=== PATIENT | male | born 1960 | race Caucasian/White ===

== ENCOUNTER 2021-06-27 07:31 | Emergency (ER) | payer MEDICAID ==
[~2021-06-27] VITALS: Ht 175.3 cm; Wt 83.0 kg
[2021-06-27 07:37] VITALS: BP 137/66
[2021-06-28] MEDS ORDERED: CEPH500C2 MT (06:38)
== END 2021-06-27 14:12 | disposition home or self-care (01) ==
LOC: EDBD 07:39 → ER 07:39
DX: K40.90 Unilateral inguinal hernia, without obstruction or gangrene, not specified as recurrent (principal); Z98.890 Other specified postprocedural states
CPT/HCPCS: 74176; 76870; 93976; 99284

== ENCOUNTER 2021-06-28 05:54 | Emergency (ER) | payer MEDICAID ==
[~2021-06-28] VITALS: Ht 167.6 cm; Wt 61.0 kg
[2021-06-28] MEDS ORDERED: IBUPROFEN 600MG TABLET PO ONE (06:30)
[2021-06-28] MEDS ORDERED: CEPH500C2 MT (06:38)
[2021-06-28 09:54] VITALS: BP 137/80
== END 2021-06-28 09:55 | disposition home or self-care (01) ==
LOC: ER 07:15
DX: R53.1 Weakness (principal); F15.10 Other stimulant abuse, uncomplicated; K40.90 Unilateral inguinal hernia, without obstruction or gangrene, not specified as recurrent
CPT/HCPCS: 82962; 99283

== ENCOUNTER 2021-06-28 13:47 | Inpatient (IN) | payer MEDICAID ==
[~2021-06-28] VITALS: Ht 160 cm; Wt 55.8 kg
[~2021-06-28 13:47] MED LIST: CEPH500C2 MT; ETOMIDATE 2MG/ML 10ML VIAL IV ONE
[2021-06-28] MEDS ORDERED: NALOXONE HCL 1 MG/ML 2ML VIAL IV ONE ×2 (14:00→14:45)
[2021-06-28] MEDS ORDERED: NALOXONE HCL 1 MG/ML 2ML VIAL ONE (14:06)
[2021-06-28 14:45] LABS: BASOPHILS % 0.4 % (0.0-2.0); EOSINOPHILS % 0.8 % (0.0-5.0); HEMOGLOBIN. 12.4 g/dL (14.0-18.0); LYMPHOCYTES % 9.4 % (20.0-50.0); MEAN CORPUSCULAR HEMOGLOBIN 24.9 pg (28.0-32.0); MEAN CORPUSCULAR VOLUME 78.4 fL (80.0-94.0); MEAN PLATELET VOLUME 7.4 fl (7.4-10.4); MONOCYTES % 3.3 % (2.0-8.0); NEUTROPHILS % 86.1 % (40.0-76.0); PLATELET 554 x1000/uL (130-400); RED BLOOD CELL COUNT 4.98 mill/uL (4.7-6.1); RED CELL DISTRIBUTION WIDTH 16.5 % (11.6-14.6)
[2021-06-28 14:52] LABS: CHLORIDE 99 mEq/L (98-107)
[2021-06-28 14:56] LABS: ETHANOL BLOOD < 10 mg/dL
[2021-06-28] MEDS ORDERED: PROPOFOL 10MG/ML 100ML 100 ML IV ONE (15:00)
[2021-06-28] MEDS ORDERED: ROCURONIUM BROMIDE 10MG/ML VIAL 5ML IV ONE (15:00)
[2021-06-28] MEDS ORDERED: ETOMIDATE 2MG/ML 10ML VIAL IV ONE (15:00)
[2021-06-28] MEDS ORDERED: NALOXONE HCL 1 MG/ML 2ML VIAL IV NR (15:00)
[2021-06-28 15:50] LABS: CLARITY URINE CLEAR (CLEAR); COLOR URINE DARK YELLOW (YELLOW); KETONES URINE TRACE (NEGATIVE); LEUKOCYTE ESTERASE URINE NEGATIVE (NEGATIVE); NITRITE URINE NEGATIVE (NEGATIVE); OCCULT BLOOD URINE 1+ (NEGATIVE); PROTEIN URINE 2+ (NEGATIVE); SPECIFIC GRAVITY URINE 1.018 (1.005-1.030)
[2021-06-28 16:03] LABS: *AMPHETAMINES SCREEN URINE NEGATIVE (NEGATIVE); *BARBITURATES SCREEN URINE NEGATIVE (NEGATIVE); *BENZODIAZEPINES SCREEN URINE NEGATIVE (NEGATIVE); *COCAINE SCREEN URINE NEGATIVE (NEGATIVE); METHADONE URINE SCREEN NEGATIVE (NEGATIVE); OPIATES URINE SCREEN PRESUMTIVE POSITIVE (NEGATIVE)
[2021-06-28 16:04] LABS: CANNABINOID URINE SCREEN NEGATIVE (NEGATIVE); PHENCYCLIDINE URINE SCREEN NEGATIVE (NEGATIVE)
[2021-06-28] MEDS: FLUORESCEIN SODIUM 1MG/STRIP RIGHTEYE ONE ×2 (16:14→17:03)
[2021-06-28] MEDS: TETRACAINE 0.5% OPHTH DROPS 4ML RIGHTEYE ONE ×2 (16:14→17:03)
[2021-06-28 17:02] LABS: BG BASE EXCESS -2.2 mmol/L (-2.0-2.0); BG CARBOXYHEMOGLOBIN 0.4 % (0.5-1.5); BG DEOXYHEMOGLOBIN 4.3 % (0.0-5.0); BG FRACTION INSPIRED OXYGEN 100; BG HCO3 ACT 24.8 mmol/L (22.0-26.0); BG METHEMOGLOBIN 0.2 % (0.0-1.5); BG OXYGEN SATURATION 95.7 % (92.0-98.5); BG OXYHEMOGLOBIN 95.1 % (94.0-97.0); BG PCO2 51.7 mmHg (35.0-45.0); BG PH 7.299 (7.350-7.450); BG PO2 85.3 mmHg (75.0-100.0); BG SAMPLE SITE RIGHT RADIAL; BG TOTAL HEMOGLOBIN 13.5 g/dL (12.0-18.0); BG VENT MODE VENT - AC
[2021-06-28] MEDS ORDERED: LORAZEPAM 2MG/ML CPJ IV PRN (20:00)
[2021-06-28] MEDS ORDERED: DEXTROSE 50% WATER 50ML SYRINGE IV PRN (20:00)
[2021-06-28] MEDS ORDERED: POTASSIUM CHLORIDE INJ 40 MEQ in DEXT 5% WATER 250 ML IV ONE (20:00)
[2021-06-28] MEDS: INSULIN LISPRO 100 UNITS/ML SUBCUT SCH (20:30)
[2021-06-28] MEDS: BLOOD SUGAR DIAGNOSTIC STRIP TEST SCH (20:30)
[2021-06-28] MEDS: KCL 20MEQ/100ML PREMIX 100 ML IV SCH ×2 (22:17→23:54)
[2021-06-28] MEDS: DEXT 5%/0.45% NACL 1000ML 1,000 ML IV SCH (22:57)
[2021-06-29] MEDS: PROPOFOL 10MG/ML 100ML 100 ML IV PRN ×3 (00:01→15:43)
[2021-06-29] MEDS: BLOOD SUGAR DIAGNOSTIC STRIP TEST SCH ×6 (04:00→20:34)
[2021-06-29 05:47] LABS: HEMATOCRIT. 41.1 % (42.0-52.0); HEMOGLOBIN. 13.2 g/dL (14.0-18.0); MEAN CORPUSCULAR HEMOGLOBIN 24.4 pg (28.0-32.0); MEAN CORPUSCULAR VOLUME 76.1 fL (80.0-94.0); MEAN PLATELET VOLUME 7.6 fl (7.4-10.4); PLATELET 473 x1000/uL (130-400); RED BLOOD CELL COUNT 5.41 mill/uL (4.7-6.1); RED CELL DISTRIBUTION WIDTH 16.1 % (11.6-14.6)
[2021-06-29 05:51] LABS: CHLORIDE 101 mEq/L (98-107)
[2021-06-29 05:58] LABS: PHOSPHORUS 2.6 mg/dL (2.5-4.9)
[2021-06-29] MEDS: INSULIN LISPRO 100 UNITS/ML SUBCUT SCH ×6 (08:00→20:35)
[2021-06-29 10:10] LABS: BG BASE EXCESS -1.4 mmol/L (-2.0-2.0); BG CARBOXYHEMOGLOBIN 0.5 % (0.5-1.5); BG DEOXYHEMOGLOBIN 0.5 % (0.0-5.0); BG FRACTION INSPIRED OXYGEN 100; BG HCO3 ACT 20.3 mmol/L (22.0-26.0); BG METHEMOGLOBIN 0.2 % (0.0-1.5); BG OXYGEN SATURATION 99.5 % (92.0-98.5); BG OXYHEMOGLOBIN 98.8 % (94.0-97.0); BG PCO2 26.2 mmHg (35.0-45.0); BG PH 7.506 (7.350-7.450); BG PO2 204.4 mmHg (75.0-100.0); BG SAMPLE SITE RIGHT RADIAL; BG TOTAL HEMOGLOBIN 13.4 g/dL (12.0-18.0); BG VENT MODE VENT - AC
[2021-06-29] MEDS: PANTOPRAZOLE SODIUM 40 MG/VIAL IV SCH (11:59)
[2021-06-29 13:22] LABS: PLATELET ESTIMATE INCREASED
[2021-06-29] MEDS: DEXT 5%/0.45% NACL 1000ML 1,000 ML IV SCH ×2 (13:52→22:54)
[2021-06-29] MEDS ORDERED: PROPOFOL 10MG/ML 100ML 100 ML IV PRN (16:00)
[2021-06-29] MEDS ORDERED: IPRATROPIUM/ALBUTEROL 0.5-3(2.5)MG/3ML NEB HHN PRN (16:00)
[2021-06-29] MEDS: PIPERACILLIN/TAZ 3.375G PREMIX 50 ML IV SCH ×2 (16:26→23:05)
[2021-06-29] MEDS: IPRATROPIUM/ALBUTEROL 0.5-3(2.5)MG/3ML NEB HHN SCH (21:18)
[2021-06-30] VITALS (59 sets, daily range): BP systolic 101–170; BP diastolic 68–92
[2021-06-30] MEDS: DEXT 5%/0.45% NACL 1000ML 1,000 ML IV SCH (01:00)
[2021-06-30] MEDS: BLOOD SUGAR DIAGNOSTIC STRIP TEST SCH ×6 (01:11→20:00)
[2021-06-30] MEDS: INSULIN LISPRO 100 UNITS/ML SUBCUT SCH ×6 (04:00→20:00)
[2021-06-30] MEDS: PIPERACILLIN/TAZ 3.375G PREMIX 50 ML IV SCH (05:25)
[2021-06-30] MEDS: IPRATROPIUM/ALBUTEROL 0.5-3(2.5)MG/3ML NEB HHN SCH ×3 (08:46→21:40)
[2021-06-30] MEDS: PANTOPRAZOLE SODIUM 40 MG/VIAL IV SCH (09:13)
[2021-06-30 09:17] LABS: BG BASE EXCESS 1.1 mmol/L (-2.0-2.0); BG CARBOXYHEMOGLOBIN 0.7 % (0.5-1.5); BG DEOXYHEMOGLOBIN 1.6 % (0.0-5.0); BG FRACTION INSPIRED OXYGEN 50; BG HCO3 ACT 25.2 mmol/L (22.0-26.0); BG METHEMOGLOBIN 0.2 % (0.0-1.5); BG OXYGEN SATURATION 98.4 % (92.0-98.5); BG OXYHEMOGLOBIN 97.5 % (94.0-97.0); BG PCO2 38.2 mmHg (35.0-45.0); BG PH 7.437 (7.350-7.450); BG PO2 111.6 mmHg (75.0-100.0); BG SAMPLE SITE RIGHT RADIAL; BG TOTAL HEMOGLOBIN 13.4 g/dL (12.0-18.0); BG VENT MODE VENT - AC
[2021-06-30] MEDS ORDERED: VANCOMYCIN 1250MG in DEXTROSE 5% WATER 250ML IV SCH (12:30)
[2021-06-30] MEDS ORDERED: VANCOMYCIN 1G PREMIX 200 ML IV NR (12:30)
[2021-06-30] MEDS: PIPERACILLIN/TAZOBACTAM 3.375G in DEXT 5% WATER 50ML IV SCH ×2 (13:56→22:12)
[2021-06-30] MEDS ORDERED: PIPERACILLIN/TAZ 3.375G PREMIX 50 ML IV SCH (14:00)
[2021-06-30] MEDS: DIPHENHYDRAMINE 50MG/ML VIAL IV PRN (16:29)
[2021-06-30] MEDS ORDERED: PROPOFOL 10MG/ML 100ML 100 ML IV PRN (19:15)
[2021-06-30] MEDS ORDERED: PROPOFOL 10 MG/ML 100 ML IV PRN (19:15)
[2021-07-01] VITALS (96 sets, daily range): BP systolic 111–182; BP diastolic 62–87
[2021-07-01] MEDS: IPRATROPIUM/ALBUTEROL 0.5-3(2.5)MG/3ML NEB HHN SCH ×4 (01:21→20:35)
[2021-07-01] MEDS ORDERED: VANCOMYCIN 1G PREMIX 200 ML IV SCH ×2 (02:00→12:00)
[2021-07-01] MEDS: DIPHENHYDRAMINE 50MG/ML VIAL IV PRN (04:37)
[2021-07-01] MEDS: BLOOD SUGAR DIAGNOSTIC STRIP TEST SCH ×6 (04:38→20:00)
[2021-07-01] MEDS: INSULIN LISPRO 100 UNITS/ML SUBCUT SCH ×6 (04:42→20:00)
[2021-07-01] MEDS: PIPERACILLIN/TAZOBACTAM 3.375G in DEXT 5% WATER 50ML IV SCH ×3 (06:01→21:45)
[2021-07-01] MEDS: PANTOPRAZOLE SODIUM 40 MG/VIAL IV SCH (08:15)
[2021-07-01] MEDS: AMLODIPINE 5MG TABLET PO SCH (09:16)
[2021-07-01] MEDS ORDERED: PROPOFOL 10MG/ML 100ML 100 ML IV PRN (11:30)
[2021-07-01] MEDS: DEXT 5%/0.45% NACL 1000ML 1,000 ML IV SCH (14:21)
[2021-07-01] MEDS: MUPIROCIN 2% OINT 22GM NS SCH (16:59)
[2021-07-02] VITALS (86 sets, daily range): BP systolic 114–163; BP diastolic 58–99
[2021-07-02] MEDS: IPRATROPIUM/ALBUTEROL 0.5-3(2.5)MG/3ML NEB HHN SCH ×4 (00:29→20:18)
[2021-07-02] MEDS: DEXT 5%/0.45% NACL 1000ML 1,000 ML IV SCH ×2 (04:00→17:17)
[2021-07-02] MEDS: INSULIN LISPRO 100 UNITS/ML SUBCUT SCH ×7 (04:00→23:31)
[2021-07-02] MEDS: BLOOD SUGAR DIAGNOSTIC STRIP TEST SCH ×7 (04:00→23:30)
[2021-07-02] MEDS: PIPERACILLIN/TAZOBACTAM 3.375G in DEXT 5% WATER 50ML IV SCH ×3 (06:00→21:40)
[2021-07-02 06:17] LABS: CHLORIDE 107 mEq/L (98-107)
[2021-07-02] MEDS: AMLODIPINE 5MG TABLET PO SCH (08:12)
[2021-07-02] MEDS: PANTOPRAZOLE SODIUM 40 MG/VIAL IV SCH (08:12)
[2021-07-02] MEDS: MUPIROCIN 2% OINT 22GM NS SCH (08:12)
[2021-07-02 09:25] LABS: BG BASE EXCESS 2.7 mmol/L (-2.0-2.0); BG CARBOXYHEMOGLOBIN 0.2 % (0.5-1.5); BG DEOXYHEMOGLOBIN 1.7 % (0.0-5.0); BG FRACTION INSPIRED OXYGEN 40; BG HCO3 ACT 27.3 mmol/L (22.0-26.0); BG METHEMOGLOBIN 0.1 % (0.0-1.5); BG OXYGEN SATURATION 98.3 % (92.0-98.5); BG PCO2 42.3 mmHg (35.0-45.0); BG PH 7.428 (7.350-7.450); BG PO2 117.4 mmHg (75.0-100.0); BG SAMPLE SITE RIGHT RADIAL; BG TOTAL HEMOGLOBIN 11.3 g/dL (12.0-18.0); BG TOTAL RESPIRATORY RATE 18 b/min; BG VENT MODE VENT - AC
[2021-07-02 13:13] LABS: BG BASE EXCESS -4.4 mmol/L (-2.0-2.0); BG CARBOXYHEMOGLOBIN 0.3 % (0.5-1.5); BG DEOXYHEMOGLOBIN 1.8 % (0.0-5.0); BG FRACTION INSPIRED OXYGEN 40; BG HCO3 ACT 22.6 mmol/L (22.0-26.0); BG METHEMOGLOBIN 0.3 % (0.0-1.5); BG OXYGEN SATURATION 98.2 % (92.0-98.5); BG OXYHEMOGLOBIN 97.6 % (94.0-97.0); BG PCO2 50.3 mmHg (35.0-45.0); BG PH 7.271 (7.350-7.450); BG PO2 135.8 mmHg (75.0-100.0); BG SAMPLE SITE RIGHT RADIAL; BG TOTAL HEMOGLOBIN 11.4 g/dL (12.0-18.0); BG VENT MODE CPAP/PS
[2021-07-02 15:13] LABS: BG BASE EXCESS -4.3 mmol/L (-2.0-2.0); BG CARBOXYHEMOGLOBIN 0.3 % (0.5-1.5); BG DEOXYHEMOGLOBIN 4.9 % (0.0-5.0); BG FRACTION INSPIRED OXYGEN 40; BG HCO3 ACT 24.8 mmol/L (22.0-26.0); BG METHEMOGLOBIN 0.2 % (0.0-1.5); BG OXYGEN SATURATION 95.1 % (92.0-98.5); BG OXYHEMOGLOBIN 94.6 % (94.0-97.0); BG PCO2 66.4 mmHg (35.0-45.0); BG PH 7.191 (7.350-7.450); BG SAMPLE SITE RIGHT RADIAL; BG TOTAL HEMOGLOBIN 12.2 g/dL (12.0-18.0); BG TOTAL RESPIRATORY RATE 39 b/min; BG VENT MODE VENT - CPAP
[2021-07-03] VITALS (56 sets, daily range): BP systolic 117–185; BP diastolic 68–91
[2021-07-03] MEDS: IPRATROPIUM/ALBUTEROL 0.5-3(2.5)MG/3ML NEB HHN SCH ×5 (02:55→20:24)
[2021-07-03] MEDS: BLOOD SUGAR DIAGNOSTIC STRIP TEST SCH ×6 (03:51→23:48)
[2021-07-03] MEDS: INSULIN LISPRO 100 UNITS/ML SUBCUT SCH ×5 (03:52→20:56)
[2021-07-03] MEDS: PIPERACILLIN/TAZOBACTAM 3.375G in DEXT 5% WATER 50ML IV SCH ×3 (05:53→21:00)
[2021-07-03] MEDS: DEXT 5%/0.45% NACL 1000ML 1,000 ML IV SCH ×2 (05:55→20:55)
[2021-07-03] MEDS: MUPIROCIN 2% OINT 22GM NS SCH (08:35)
[2021-07-03] MEDS: AMLODIPINE 5MG TABLET PO SCH (08:35)
[2021-07-03] MEDS: PANTOPRAZOLE SODIUM 40 MG/VIAL IV SCH (08:35)
[2021-07-03 10:28] LABS: BG BASE EXCESS 2.9 mmol/L (-2.0-2.0); BG CARBOXYHEMOGLOBIN 0.2 % (0.5-1.5); BG DEOXYHEMOGLOBIN 8.2 % (0.0-5.0); BG HCO3 ACT 32.8 mmol/L (22.0-26.0); BG METHEMOGLOBIN 0.2 % (0.0-1.5); BG OXYGEN SATURATION 91.8 % (92.0-98.5); BG OXYHEMOGLOBIN 91.4 % (94.0-97.0); BG PCO2 81.5 mmHg (35.0-45.0); BG PH 7.222 (7.350-7.450); BG PO2 76.1 mmHg (75.0-100.0); BG SAMPLE SITE RIGHT RADIAL; BG VENT MODE VENT - CPAP
[2021-07-03] MEDS: METHYLPREDNISOLONE SOD SUCC 40 MG/ML VIAL IV SCH ×2 (13:25→20:54)
[2021-07-04] VITALS (48 sets, daily range): BP systolic 105–180; BP diastolic 66–101
[2021-07-04] MEDS: IPRATROPIUM/ALBUTEROL 0.5-3(2.5)MG/3ML NEB HHN SCH ×6 (00:17→21:38)
[2021-07-04] MEDS: BLOOD SUGAR DIAGNOSTIC STRIP TEST SCH ×6 (03:15→23:14)
[2021-07-04] MEDS: INSULIN LISPRO 100 UNITS/ML SUBCUT SCH ×6 (03:16→23:15)
[2021-07-04] MEDS: METHYLPREDNISOLONE SOD SUCC 40 MG/ML VIAL IV SCH ×3 (03:48→21:02)
[2021-07-04] MEDS: PIPERACILLIN/TAZOBACTAM 3.375G in DEXT 5% WATER 50ML IV SCH (05:05)
[2021-07-04 06:10] LABS: CHLORIDE 102 mEq/L (98-107)
[2021-07-04 06:20] LABS: BASOPHILS % 0.1 % (0.0-2.0); EOSINOPHILS % 0.1 % (0.0-5.0); HEMATOCRIT. 32.4 % (42.0-52.0); HEMOGLOBIN. 10.4 g/dL (14.0-18.0); MEAN CORPUSCULAR HEMOGLOBIN 24.6 pg (28.0-32.0); MEAN CORPUSCULAR VOLUME 76.7 fL (80.0-94.0); MEAN PLATELET VOLUME 7.3 fl (7.4-10.4); MONOCYTES % 3.7 % (2.0-8.0); NEUTROPHILS % 87.1 % (40.0-76.0); PLATELET 641 x1000/uL (130-400); RED BLOOD CELL COUNT 4.23 mill/uL (4.7-6.1); RED CELL DISTRIBUTION WIDTH 15.9 % (11.6-14.6)
[2021-07-04] MEDS: PANTOPRAZOLE SODIUM 40 MG/VIAL IV SCH (10:34)
[2021-07-04] MEDS: AMLODIPINE 5MG TABLET PO SCH (10:35)
[2021-07-04 10:36] LABS: BG BASE EXCESS 5.4 mmol/L (-2.0-2.0); BG CARBOXYHEMOGLOBIN 0.3 % (0.5-1.5); BG DEOXYHEMOGLOBIN 2.7 % (0.0-5.0); BG FRACTION INSPIRED OXYGEN 35; BG HCO3 ACT 30.5 mmol/L (22.0-26.0); BG METHEMOGLOBIN 0.2 % (0.0-1.5); BG OXYGEN SATURATION 97.3 % (92.0-98.5); BG OXYHEMOGLOBIN 96.8 % (94.0-97.0); BG PCO2 46.3 mmHg (35.0-45.0); BG PH 7.436 (7.350-7.450); BG SAMPLE SITE RIGHT RADIAL; BG TOTAL HEMOGLOBIN 12.1 g/dL (12.0-18.0); BG VENT MODE VENT - CPAP
[2021-07-04] MEDS: MUPIROCIN 2% OINT 22GM NS SCH (10:36)
[2021-07-04] MEDS: DEXT 5%/0.45% NACL 1000ML 1,000 ML IV SCH ×2 (10:36→22:00)
[2021-07-04] MEDS ORDERED: BLOOD SUGAR DIAGNOSTIC STRIP TEST SCH (20:00)
[2021-07-05] VITALS (52 sets, daily range): BP systolic 123–165; BP diastolic 65–93
[2021-07-05] MEDS: IPRATROPIUM/ALBUTEROL 0.5-3(2.5)MG/3ML NEB HHN SCH ×6 (01:34→20:21)
[2021-07-05] MEDS: INSULIN LISPRO 100 UNITS/ML SUBCUT SCH ×3 (05:10→17:13)
[2021-07-05] MEDS: BLOOD SUGAR DIAGNOSTIC STRIP TEST SCH ×3 (05:10→17:13)
[2021-07-05] MEDS: METHYLPREDNISOLONE SOD SUCC 40 MG/ML VIAL IV SCH ×3 (05:10→22:57)
[2021-07-05] MEDS: PANTOPRAZOLE SODIUM 40 MG/VIAL IV SCH (08:26)
[2021-07-05] MEDS: AMLODIPINE 5MG TABLET PO SCH (08:29)
[2021-07-05] MEDS ORDERED: LIDOCAINE HCL 1% 20ML VIAL (Pyxis) INJ ONE (08:30)
[2021-07-05 13:15] LABS: BG CARBOXYHEMOGLOBIN 0.5 % (0.5-1.5); BG DEOXYHEMOGLOBIN 3.1 % (0.0-5.0); BG HCO3 ACT 30.5 mmol/L (22.0-26.0); BG METHEMOGLOBIN 0.4 % (0.0-1.5); BG OXYGEN SATURATION 96.9 % (92.0-98.5); BG PCO2 59.3 mmHg (35.0-45.0); BG PH 7.329 (7.350-7.450); BG PO2 98.7 mmHg (75.0-100.0); BG SAMPLE SITE RIGHT RADIAL; BG VENT MODE VENT - CPAP
[2021-07-05] MEDS: DEXT 5%/0.45% NACL 1000ML 1,000 ML IV SCH (14:56)
[2021-07-05] MEDS: MUPIROCIN 2% OINT 22GM NS SCH (14:56)
[2021-07-06] VITALS (48 sets, daily range): BP systolic 118–184; BP diastolic 69–98
[2021-07-06] MEDS: BLOOD SUGAR DIAGNOSTIC STRIP TEST SCH ×4 (00:35→18:00)
[2021-07-06] MEDS: IPRATROPIUM/ALBUTEROL 0.5-3(2.5)MG/3ML NEB HHN SCH ×6 (00:43→20:51)
[2021-07-06] MEDS: DEXT 5%/0.45% NACL 1000ML 1,000 ML IV SCH ×2 (04:00→14:12)
[2021-07-06 05:34] LABS: HEMATOCRIT. 35.3 % (42.0-52.0); HEMOGLOBIN. 10.7 g/dL (14.0-18.0); MEAN CORPUSCULAR HEMOGLOBIN 23.3 pg (28.0-32.0); MEAN CORPUSCULAR VOLUME 76.9 fL (80.0-94.0); MEAN PLATELET VOLUME 7.2 fl (7.4-10.4); PLATELET 664 x1000/uL (130-400); RED BLOOD CELL COUNT 4.59 mill/uL (4.7-6.1)
[2021-07-06 05:38] LABS: CHLORIDE 102 mEq/L (98-107)
[2021-07-06] MEDS: METHYLPREDNISOLONE SOD SUCC 40 MG/ML VIAL IV SCH ×3 (05:57→22:33)
[2021-07-06] MEDS: INSULIN LISPRO 100 UNITS/ML SUBCUT SCH ×4 (06:00→18:00)
[2021-07-06 07:50] LABS: PLATELET ESTIMATE INCREASED
[2021-07-06] MEDS: PANTOPRAZOLE SODIUM 40 MG/VIAL IV SCH (08:46)
[2021-07-06] MEDS: AMLODIPINE 5MG TABLET PO SCH (08:46)
[2021-07-07] VITALS (46 sets, daily range): BP systolic 130–184; BP diastolic 74–100
[2021-07-07] MEDS: IPRATROPIUM/ALBUTEROL 0.5-3(2.5)MG/3ML NEB HHN SCH ×6 (00:33→20:47)
[2021-07-07] MEDS: DEXT 5%/0.45% NACL 1000ML 1,000 ML IV SCH ×2 (03:18→16:47)
[2021-07-07] MEDS: INSULIN LISPRO 100 UNITS/ML SUBCUT SCH ×4 (06:00→18:00)
[2021-07-07] MEDS: BLOOD SUGAR DIAGNOSTIC STRIP TEST SCH ×4 (06:18→18:04)
[2021-07-07] MEDS: METHYLPREDNISOLONE SOD SUCC 40 MG/ML VIAL IV SCH ×2 (06:18→16:48)
[2021-07-07] MEDS: AMLODIPINE 5MG TABLET PO SCH (08:33)
[2021-07-07] MEDS: PANTOPRAZOLE SODIUM 40 MG/VIAL IV SCH (08:33)
[2021-07-07 10:35] LABS: BG BASE EXCESS 4.8 mmol/L (-2.0-2.0); BG CARBOXYHEMOGLOBIN 0.3 % (0.5-1.5); BG DEOXYHEMOGLOBIN 3.6 % (0.0-5.0); BG FRACTION INSPIRED OXYGEN 35; BG HCO3 ACT 31.2 mmol/L (22.0-26.0); BG METHEMOGLOBIN 0.3 % (0.0-1.5); BG OXYGEN SATURATION 96.4 % (92.0-98.5); BG OXYHEMOGLOBIN 95.8 % (94.0-97.0); BG PO2 90.5 mmHg (75.0-100.0); BG SAMPLE SITE RIGHT RADIAL; BG VENT MODE VENT - CPAP
[2021-07-07] MEDS ORDERED: HYDRALAZINE 20MG/ML VIAL IV PRN (14:00)
[2021-07-07 14:35] LABS: BG CARBOXYHEMOGLOBIN 0.8 % (0.5-1.5); BG FRACTION INSPIRED OXYGEN 35; BG HCO3 ACT 27.4 mmol/L (22.0-26.0); BG OXYGEN SATURATION 85.9 % (92.0-98.5); BG OXYHEMOGLOBIN 85.2 % (94.0-97.0); BG PCO2 85.4 mmHg (35.0-45.0); BG PH 7.124 (7.350-7.450); BG PO2 69.6 mmHg (75.0-100.0); BG SAMPLE SITE LEFT RADIAL; BG TOTAL HEMOGLOBIN 13.6 g/dL (12.0-18.0); BG VENT MODE T PIECE
[2021-07-07] MEDS: LOSARTAN POTASSIUM 50 MG TABLET PO SCH (15:02)
[2021-07-08] VITALS (45 sets, daily range): BP systolic 98–142; BP diastolic 58–89
[2021-07-08] MEDS: IPRATROPIUM/ALBUTEROL 0.5-3(2.5)MG/3ML NEB HHN SCH ×6 (00:19→20:15)
[2021-07-08] MEDS: BLOOD SUGAR DIAGNOSTIC STRIP TEST SCH ×4 (06:00→17:25)
[2021-07-08] MEDS: INSULIN LISPRO 100 UNITS/ML SUBCUT SCH ×4 (06:00→17:25)
[2021-07-08] MEDS: DEXT 5%/0.45% NACL 1000ML 1,000 ML IV SCH ×2 (07:33→21:46)
[2021-07-08 09:31] LABS: INR 1.1; PROTHROMBIN TIME 11.6 sec (9.6-11.0)
[2021-07-08] MEDS: METHYLPREDNISOLONE SOD SUCC 40 MG/ML VIAL IV SCH ×2 (09:40→17:30)
[2021-07-08] MEDS: AMLODIPINE 5MG TABLET PO SCH (09:40)
[2021-07-08] MEDS: LOSARTAN POTASSIUM 50 MG TABLET PO SCH (09:40)
[2021-07-08] MEDS: PANTOPRAZOLE SODIUM 40 MG/VIAL IV SCH (09:40)
[2021-07-08 16:05] LABS: BG BASE EXCESS 2.7 mmol/L (-2.0-2.0); BG DEOXYHEMOGLOBIN 2.3 % (0.0-5.0); BG FRACTION INSPIRED OXYGEN 35; BG HCO3 ACT 27.6 mmol/L (22.0-26.0); BG METHEMOGLOBIN 0.2 % (0.0-1.5); BG OXYGEN SATURATION 97.7 % (92.0-98.5); BG OXYHEMOGLOBIN 97.5 % (94.0-97.0); BG PH 7.416 (7.350-7.450); BG SAMPLE SITE RIGHT RADIAL; BG TOTAL HEMOGLOBIN 13.2 g/dL (12.0-18.0); BG VENT MODE VENT - SIMV
[2021-07-08] MEDS: ONDANSETRON HCL 4MG/2ML INJ IV PRN (21:46)
[2021-07-08] MEDS: DIPHENHYDRAMINE 50MG/ML VIAL IV PRN (21:47)
[2021-07-09] VITALS (55 sets, daily range): BP systolic 97–153; BP diastolic 63–90
[2021-07-09] MEDS: IPRATROPIUM/ALBUTEROL 0.5-3(2.5)MG/3ML NEB HHN SCH ×6 (00:16→20:10)
[2021-07-09] MEDS: BLOOD SUGAR DIAGNOSTIC STRIP TEST SCH ×5 (06:00→23:40)
[2021-07-09] MEDS: INSULIN LISPRO 100 UNITS/ML SUBCUT SCH ×5 (06:00→23:40)
[2021-07-09 06:05] LABS: CHLORIDE 99 mEq/L (98-107)
[2021-07-09 06:07] LABS: BASOPHILS % 0.1 % (0.0-2.0); HEMATOCRIT. 40.9 % (42.0-52.0); HEMOGLOBIN. 12.8 g/dL (14.0-18.0); LYMPHOCYTES % 7.2 % (20.0-50.0); MEAN CORPUSCULAR HEMOGLOBIN 24.1 pg (28.0-32.0); MEAN CORPUSCULAR VOLUME 76.9 fL (80.0-94.0); MEAN PLATELET VOLUME 7.8 fl (7.4-10.4); MONOCYTES % 4.6 % (2.0-8.0); NEUTROPHILS % 88.1 % (40.0-76.0); PLATELET 646 x1000/uL (130-400); RED BLOOD CELL COUNT 5.31 mill/uL (4.7-6.1)
[2021-07-09] MEDS: AMLODIPINE 5MG TABLET PO SCH (08:40)
[2021-07-09] MEDS: METHYLPREDNISOLONE SOD SUCC 40 MG/ML VIAL IV SCH ×2 (08:40→18:52)
[2021-07-09] MEDS: PANTOPRAZOLE SODIUM 40 MG/VIAL IV SCH (08:40)
[2021-07-09] MEDS: LOSARTAN POTASSIUM 50 MG TABLET PO SCH (08:40)
[2021-07-09] MEDS: DEXT 5%/0.45% NACL 1000ML 1,000 ML IV SCH ×2 (08:41→21:45)
[2021-07-09 09:13] LABS: BG BASE EXCESS 5.5 mmol/L (-2.0-2.0); BG CARBOXYHEMOGLOBIN 0.1 % (0.5-1.5); BG DEOXYHEMOGLOBIN 3.9 % (0.0-5.0); BG FRACTION INSPIRED OXYGEN 35; BG HCO3 ACT 30.4 mmol/L (22.0-26.0); BG METHEMOGLOBIN 0.3 % (0.0-1.5); BG OXYGEN SATURATION 96.1 % (92.0-98.5); BG OXYHEMOGLOBIN 95.7 % (94.0-97.0); BG PCO2 45.3 mmHg (35.0-45.0); BG PH 7.445 (7.350-7.450); BG PO2 83.2 mmHg (75.0-100.0); BG SAMPLE SITE RIGHT RADIAL; BG TOTAL HEMOGLOBIN 14.1 g/dL (12.0-18.0); BG VENT MODE VENT - SIMV
[2021-07-09] MEDS ORDERED: PNEUMOCOCCAL 23-VAL P-SAC VAC 0.5 ML IM ONE (16:00)
[2021-07-09] MEDS ORDERED: INFLUENZA VACCINE 05/PF 0.5 ML SYRINGE IM ONE (16:00)
[2021-07-09] MEDS: ASCORBIC ACID 500 MG TABLET PO SCH (18:51)
[2021-07-09] MEDS: ZINC SULFATE 220 MG ( 50 ) CAPSULE PO SCH (18:51)
[2021-07-10] VITALS (12 sets, daily range): BP systolic 106–149; BP diastolic 53–79
[2021-07-10] MEDS: IPRATROPIUM/ALBUTEROL 0.5-3(2.5)MG/3ML NEB HHN SCH ×6 (00:33→20:23)
[2021-07-10] MEDS: BLOOD SUGAR DIAGNOSTIC STRIP TEST SCH ×4 (05:07→23:18)
[2021-07-10] MEDS: INSULIN LISPRO 100 UNITS/ML SUBCUT SCH ×4 (05:08→23:18)
[2021-07-10] MEDS: METHYLPREDNISOLONE SOD SUCC 40 MG/ML VIAL IV SCH (08:52)
[2021-07-10] MEDS: DEXT 5%/0.45% NACL 1000ML 1,000 ML IV SCH ×2 (08:53→23:14)
[2021-07-10] MEDS: PANTOPRAZOLE SODIUM 40 MG/VIAL IV SCH ×2 (08:53→20:29)
[2021-07-10] MEDS: ASCORBIC ACID 500 MG TABLET PO SCH (08:53)
[2021-07-10] MEDS: AMLODIPINE 5MG TABLET PO SCH (08:53)
[2021-07-10] MEDS: ZINC SULFATE 220 MG ( 50 ) CAPSULE PO SCH (08:53)
[2021-07-10] MEDS: LOSARTAN POTASSIUM 50 MG TABLET PO SCH (08:55)
[2021-07-10] MEDS ORDERED: BISACODYL 10MG SUPP PR SCH (13:15)
[2021-07-10] MEDS ORDERED: MINERAL OIL ENEMA 133ML PR SCH (17:00)
[2021-07-10] MEDS ORDERED: METOCLOPRAMIDE HCL 10MG/2ML VIAL IV NR (17:15)
[2021-07-10] MEDS ORDERED: SORBITOL 70% SOLN 30ML PO NR (17:15)
[2021-07-11] VITALS (13 sets, daily range): BP systolic 102–132; BP diastolic 53–83
[2021-07-11] MEDS: IPRATROPIUM/ALBUTEROL 0.5-3(2.5)MG/3ML NEB HHN SCH ×6 (00:45→20:03)
[2021-07-11] MEDS: BLOOD SUGAR DIAGNOSTIC STRIP TEST SCH ×3 (05:12→17:53)
[2021-07-11] MEDS: INSULIN LISPRO 100 UNITS/ML SUBCUT SCH ×3 (05:12→17:53)
[2021-07-11 08:07] LABS: HEMATOCRIT. 33.5 % (42.0-52.0); HEMOGLOBIN. 10.9 g/dL (14.0-18.0); MEAN CORPUSCULAR HEMOGLOBIN 25.1 pg (28.0-32.0); MEAN CORPUSCULAR VOLUME 77.2 fL (80.0-94.0); MEAN PLATELET VOLUME 7.6 fl (7.4-10.4); PLATELET 503 x1000/uL (130-400); RED BLOOD CELL COUNT 4.35 mill/uL (4.7-6.1); RED CELL DISTRIBUTION WIDTH 16.2 % (11.6-14.6)
[2021-07-11 08:09] LABS: INR 1.1; PROTHROMBIN TIME 11.4 sec (9.6-11.0)
[2021-07-11 08:27] LABS: CHLORIDE 100 mEq/L (98-107)
[2021-07-11] MEDS: AMLODIPINE 5MG TABLET PO SCH (08:44)
[2021-07-11] MEDS: LOSARTAN POTASSIUM 50 MG TABLET PO SCH (08:44)
[2021-07-11] MEDS: PANTOPRAZOLE SODIUM 40 MG/VIAL IV SCH ×2 (08:45→20:46)
[2021-07-11] MEDS: ASCORBIC ACID 500 MG TABLET PO SCH (09:00)
[2021-07-11] MEDS: ZINC SULFATE 220 MG ( 50 ) CAPSULE PO SCH (09:00)
[2021-07-11] MEDS ORDERED: METHYLPREDNISOLONE SOD SUCC 40 MG/ML VIAL IV SCH (09:00)
[2021-07-11 10:57] LABS: PLATELET ESTIMATE INCREASED
[2021-07-11] MEDS ORDERED: POLYETHYLENE GLYCOL 3350 (17GM) 1 DOSE PACK PO NR (11:15)
[2021-07-11] MEDS: DEXT 5%/0.45% NACL 1000ML 1,000 ML IV SCH (11:30)
[2021-07-11] MEDS ORDERED: POTASSIUM CHLORIDE 20MEQ/PACKET PO NR (17:15)
[2021-07-11] MEDS: SENNOSIDES 8.6MG TABLET NG SCH (20:52)
[2021-07-12] VITALS (13 sets, daily range): BP systolic 105–134; BP diastolic 62–76
[2021-07-12] MEDS: BLOOD SUGAR DIAGNOSTIC STRIP TEST SCH ×5 (00:22→23:15)
[2021-07-12] MEDS: IPRATROPIUM/ALBUTEROL 0.5-3(2.5)MG/3ML NEB HHN SCH ×6 (00:25→20:48)
[2021-07-12] MEDS: DEXT 5%/0.45% NACL 1000ML 1,000 ML IV SCH (03:13)
[2021-07-12] MEDS: INSULIN LISPRO 100 UNITS/ML SUBCUT SCH ×5 (05:09→23:15)
[2021-07-12] MEDS: LOSARTAN POTASSIUM 50 MG TABLET PO SCH (08:02)
[2021-07-12] MEDS: AMLODIPINE 5MG TABLET PO SCH (08:02)
[2021-07-12] MEDS: PREDNISONE 20MG TABLET PO SCH (08:02)
[2021-07-12] MEDS: ASCORBIC ACID 500 MG TABLET PO SCH (08:02)
[2021-07-12] MEDS: ZINC SULFATE 220 MG ( 50 ) CAPSULE PO SCH (08:02)
[2021-07-12] MEDS: DOCUSATE SODIUM SUGAR FREE 100MG/10ML UDC NG SCH (08:02)
[2021-07-12] MEDS: PANTOPRAZOLE SODIUM 40 MG/VIAL IV SCH ×2 (08:10→20:46)
[2021-07-12 09:01] LABS: BASOPHILS % 0.1 % (0.0-2.0); EOSINOPHILS % 0.2 % (0.0-5.0); HEMATOCRIT. 33.7 % (42.0-52.0); HEMOGLOBIN. 10.8 g/dL (14.0-18.0); LYMPHOCYTES % 11.4 % (20.0-50.0); MEAN CORPUSCULAR HEMOGLOBIN 24.9 pg (28.0-32.0); MEAN CORPUSCULAR VOLUME 77.8 fL (80.0-94.0); MEAN PLATELET VOLUME 7.3 fl (7.4-10.4); NEUTROPHILS % 83.3 % (40.0-76.0); PLATELET 496 x1000/uL (130-400); RED BLOOD CELL COUNT 4.33 mill/uL (4.7-6.1); RED CELL DISTRIBUTION WIDTH 16.2 % (11.6-14.6)
[2021-07-12 09:16] LABS: INR 1.1; PROTHROMBIN TIME 11.4 sec (9.6-11.0)
[2021-07-12 09:34] LABS: CHLORIDE 101 mEq/L (98-107)
[2021-07-12 10:15] LABS: BG BASE EXCESS 4.2 mmol/L (-2.0-2.0); BG CARBOXYHEMOGLOBIN 0.3 % (0.5-1.5); BG DEOXYHEMOGLOBIN 2.6 % (0.0-5.0); BG FRACTION INSPIRED OXYGEN 35; BG HCO3 ACT 26.5 mmol/L (22.0-26.0); BG METHEMOGLOBIN 0.1 % (0.0-1.5); BG OXYGEN SATURATION 97.4 % (92.0-98.5); BG PCO2 31.9 mmHg (35.0-45.0); BG PH 7.537 (7.350-7.450); BG PO2 95.9 mmHg (75.0-100.0); BG SAMPLE SITE RIGHT RADIAL; BG TOTAL HEMOGLOBIN 11.3 g/dL (12.0-18.0); BG TOTAL RESPIRATORY RATE 22 b/min; BG VENT MODE VENT - SIMV
[2021-07-12 11:50] LABS: HEPATITIS B SURFACE ANTIGEN NEGATIVE
[2021-07-12] MEDS: SENNOSIDES 8.6MG TABLET NG SCH (20:47)
[2021-07-13] VITALS (13 sets, daily range): BP systolic 110–150; BP diastolic 65–79
[2021-07-13] MEDS ORDERED: DEXT 5%/0.45% NACL 1000ML 1,000 ML IV SCH
[2021-07-13] MEDS: IPRATROPIUM/ALBUTEROL 0.5-3(2.5)MG/3ML NEB HHN SCH ×6 (00:26→20:46)
[2021-07-13] MEDS: BLOOD SUGAR DIAGNOSTIC STRIP TEST SCH ×4 (05:19→23:40)
[2021-07-13] MEDS: INSULIN LISPRO 100 UNITS/ML SUBCUT SCH ×4 (05:19→23:40)
[2021-07-13 06:32] LABS: HEMATOCRIT. 32.6 % (42.0-52.0); HEMOGLOBIN. 10.7 g/dL (14.0-18.0); LYMPHOCYTES % 7.3 % (20.0-50.0); MEAN CORPUSCULAR HEMOGLOBIN 25.2 pg (28.0-32.0); MEAN CORPUSCULAR VOLUME 76.6 fL (80.0-94.0); MEAN PLATELET VOLUME 7.6 fl (7.4-10.4); MONOCYTES % 4.1 % (2.0-8.0); NEUTROPHILS % 86.6 % (40.0-76.0); PLATELET 502 x1000/uL (130-400); RED BLOOD CELL COUNT 4.25 mill/uL (4.7-6.1)
[2021-07-13 06:36] LABS: PROTHROMBIN TIME 11.1 sec (9.6-11.0)
[2021-07-13 06:39] LABS: CHLORIDE 101 mEq/L (98-107)
[2021-07-13] MEDS: PANTOPRAZOLE SODIUM 40 MG/VIAL IV SCH ×2 (08:05→20:39)
[2021-07-13] MEDS: DOCUSATE SODIUM SUGAR FREE 100MG/10ML UDC NG SCH (08:05)
[2021-07-13] MEDS: AMLODIPINE 5MG TABLET PO SCH (08:06)
[2021-07-13] MEDS: ASCORBIC ACID 500 MG TABLET PO SCH (08:06)
[2021-07-13] MEDS: LOSARTAN POTASSIUM 50 MG TABLET PO SCH (08:06)
[2021-07-13] MEDS: ZINC SULFATE 220 MG ( 50 ) CAPSULE PO SCH (08:06)
[2021-07-13] MEDS: PREDNISONE 20MG TABLET PO SCH (08:06)
[2021-07-13] MEDS ORDERED: CEFAZOLIN 500 MG in DEXTROSE 5% WATER 50 ML IV ONE (08:30)
[2021-07-13] MEDS ORDERED: CEFAZOLIN 1000MG PREMIX 50 ML IV NR (08:30)
[2021-07-13] MEDS ORDERED: CEFAZOLIN SODIUM 1000MG/VIAL IM ONE (08:30)
[2021-07-13] MEDS: SENNOSIDES 8.6MG TABLET NG SCH (20:39)
[2021-07-14] VITALS (12 sets, daily range): BP systolic 94–126; BP diastolic 53–73
[2021-07-14] MEDS ORDERED: DEXT 5%/0.45% NACL 1000ML 1,000 ML IV PRN
[2021-07-14] MEDS: IPRATROPIUM/ALBUTEROL 0.5-3(2.5)MG/3ML NEB HHN SCH ×6 (00:36→20:37)
[2021-07-14] MEDS: INSULIN LISPRO 100 UNITS/ML SUBCUT SCH ×4 (05:11→23:55)
[2021-07-14] MEDS: BLOOD SUGAR DIAGNOSTIC STRIP TEST SCH ×3 (05:11→17:38)
[2021-07-14] MEDS: PANTOPRAZOLE SODIUM 40 MG/VIAL IV SCH ×2 (08:56→20:00)
[2021-07-14] MEDS: ZINC SULFATE 220 MG ( 50 ) CAPSULE PO SCH (09:00)
[2021-07-14] MEDS: AMLODIPINE 5MG TABLET PO SCH (09:00)
[2021-07-14] MEDS ORDERED: CEFAZOLIN 1000MG PREMIX 50 ML IV SCH (09:00)
[2021-07-14] MEDS: LOSARTAN POTASSIUM 50 MG TABLET PO SCH (09:00)
[2021-07-14] MEDS: PREDNISONE 20MG TABLET PO SCH (09:00)
[2021-07-14] MEDS: DOCUSATE SODIUM SUGAR FREE 100MG/10ML UDC NG SCH (09:00)
[2021-07-14] MEDS: ASCORBIC ACID 500 MG TABLET PO SCH (09:00)
[2021-07-14 12:05] LABS: HEMATOCRIT. 31.8 % (42.0-52.0); HEMOGLOBIN. 9.9 g/dL (14.0-18.0); MEAN CORPUSCULAR HEMOGLOBIN 24.3 pg (28.0-32.0); MEAN PLATELET VOLUME 7.7 fl (7.4-10.4); PLATELET 428 x1000/uL (130-400); RED BLOOD CELL COUNT 4.08 mill/uL (4.7-6.1); RED CELL DISTRIBUTION WIDTH 16.4 % (11.6-14.6)
[2021-07-14 12:16] LABS: CHLORIDE 101 mEq/L (98-107)
[2021-07-14 12:26] LABS: INR 1.1; PROTHROMBIN TIME 11.6 sec (9.6-11.0)
[2021-07-14] MEDS ORDERED: FENTANYL CITRATE/PF 50MCG/ML 2ML VIAL ONE (13:12)
[2021-07-14] MEDS ORDERED: MIDAZOLAM HCL 5 MG/5 ML VIAL ONE (13:12)
[2021-07-14] MEDS ORDERED: MIDAZOLAM HCL 5 MG/5 ML VIAL IV PRN (13:12)
[2021-07-14 17:04] LABS: PLATELET ESTIMATE INCREASED
[2021-07-14] MEDS: METOCLOPRAMIDE HCL 10MG/2ML VIAL IV SCH ×2 (17:42→23:45)
[2021-07-14] MEDS: SENNOSIDES 8.6MG TABLET NG SCH (20:00)
[2021-07-15] VITALS (12 sets, daily range): BP systolic 97–117; BP diastolic 53–72
[2021-07-15] MEDS: BLOOD SUGAR DIAGNOSTIC STRIP TEST SCH ×4 (00:35→17:55)
[2021-07-15] MEDS: IPRATROPIUM/ALBUTEROL 0.5-3(2.5)MG/3ML NEB HHN SCH ×6 (01:35→21:42)
[2021-07-15] MEDS: METOCLOPRAMIDE HCL 10MG/2ML VIAL IV SCH ×3 (05:19→17:37)
[2021-07-15] MEDS: INSULIN LISPRO 100 UNITS/ML SUBCUT SCH ×3 (06:00→17:55)
[2021-07-15] MEDS: PANTOPRAZOLE SODIUM 40 MG/VIAL IV SCH ×2 (09:10→20:49)
[2021-07-15] MEDS: AMLODIPINE 5MG TABLET PO SCH (09:11)
[2021-07-15] MEDS: DOCUSATE SODIUM SUGAR FREE 100MG/10ML UDC NG SCH (09:11)
[2021-07-15] MEDS: ASCORBIC ACID 500 MG TABLET PO SCH (09:11)
[2021-07-15] MEDS: PREDNISONE 20MG TABLET PO SCH (09:11)
[2021-07-15] MEDS: ZINC SULFATE 220 MG ( 50 ) CAPSULE PO SCH (09:11)
[2021-07-15] MEDS: LOSARTAN POTASSIUM 50 MG TABLET PO SCH (09:11)
[2021-07-15] MEDS: SENNOSIDES 8.6MG TABLET NG SCH (20:49)
[2021-07-16] VITALS (12 sets, daily range): BP systolic 99–129; BP diastolic 60–74
[2021-07-16] MEDS: BLOOD SUGAR DIAGNOSTIC STRIP TEST SCH ×5 (00:10→23:40)
[2021-07-16] MEDS: METOCLOPRAMIDE HCL 10MG/2ML VIAL IV SCH ×3 (00:32→12:33)
[2021-07-16] MEDS: IPRATROPIUM/ALBUTEROL 0.5-3(2.5)MG/3ML NEB HHN SCH ×6 (01:35→20:26)
[2021-07-16] MEDS: INSULIN LISPRO 100 UNITS/ML SUBCUT SCH ×5 (06:07→23:40)
[2021-07-16 06:46] LABS: HEMOGLOBIN. 11.5 g/dL (14.0-18.0); MEAN CORPUSCULAR HEMOGLOBIN 25.7 pg (28.0-32.0); MEAN CORPUSCULAR VOLUME 78.4 fL (80.0-94.0); MEAN PLATELET VOLUME 7.9 fl (7.4-10.4); PLATELET 434 x1000/uL (130-400); RED BLOOD CELL COUNT 4.46 mill/uL (4.7-6.1); RED CELL DISTRIBUTION WIDTH 16.8 % (11.6-14.6)
[2021-07-16 07:48] LABS: CHLORIDE 102 mEq/L (98-107)
[2021-07-16] MEDS: PANTOPRAZOLE SODIUM 40 MG/VIAL IV SCH ×2 (08:50→20:37)
[2021-07-16] MEDS: ZINC SULFATE 220 MG ( 50 ) CAPSULE PO SCH (08:50)
[2021-07-16] MEDS: PREDNISONE 20MG TABLET PO SCH (08:50)
[2021-07-16] MEDS: DOCUSATE SODIUM SUGAR FREE 100MG/10ML UDC NG SCH (08:50)
[2021-07-16] MEDS: LOSARTAN POTASSIUM 50 MG TABLET PO SCH (08:50)
[2021-07-16] MEDS: AMLODIPINE 5MG TABLET PO SCH (08:50)
[2021-07-16] MEDS: ASCORBIC ACID 500 MG TABLET PO SCH (08:50)
[2021-07-16] MEDS: LACTULOSE 20G/30ML UDC PO SCH ×2 (12:34→21:04)
[2021-07-16 15:36] LABS: BG BASE EXCESS 5.1 mmol/L (-2.0-2.0); BG DEOXYHEMOGLOBIN 1.9 % (0.0-5.0); BG FRACTION INSPIRED OXYGEN 40; BG HCO3 ACT 30.5 mmol/L (22.0-26.0); BG METHEMOGLOBIN 0.2 % (0.0-1.5); BG OXYGEN SATURATION 98.1 % (92.0-98.5); BG OXYHEMOGLOBIN 97.9 % (94.0-97.0); BG PCO2 48.4 mmHg (35.0-45.0); BG PH 7.417 (7.350-7.450); BG PO2 108.3 mmHg (75.0-100.0); BG SAMPLE SITE LEFT RADIAL; BG TOTAL HEMOGLOBIN 11.4 g/dL (12.0-18.0); BG TOTAL RESPIRATORY RATE 25 b/min; BG VENT MODE VENT - SIMV
[2021-07-16 18:31] LABS: PLATELET ESTIMATE INCREASED
[2021-07-16] MEDS: SENNOSIDES 8.6MG TABLET NG SCH (20:37)
[2021-07-17] VITALS (12 sets, daily range): BP systolic 105–140; BP diastolic 64–81
[2021-07-17] MEDS: IPRATROPIUM/ALBUTEROL 0.5-3(2.5)MG/3ML NEB HHN SCH ×6 (00:22→20:31)
[2021-07-17] MEDS: LACTULOSE 20G/30ML UDC PO SCH ×3 (05:41→21:11)
[2021-07-17] MEDS: BLOOD SUGAR DIAGNOSTIC STRIP TEST SCH ×3 (05:42→17:15)
[2021-07-17] MEDS: INSULIN LISPRO 100 UNITS/ML SUBCUT SCH ×4 (05:42→23:40)
[2021-07-17 07:18] LABS: BASOPHILS % 0.3 % (0.0-2.0); EOSINOPHILS % 2.3 % (0.0-5.0); HEMATOCRIT. 33.4 % (42.0-52.0); HEMOGLOBIN. 10.6 g/dL (14.0-18.0); LYMPHOCYTES % 9.7 % (20.0-50.0); MEAN PLATELET VOLUME 7.2 fl (7.4-10.4); MONOCYTES % 6.5 % (2.0-8.0); NEUTROPHILS % 81.2 % (40.0-76.0); PLATELET 475 x1000/uL (130-400); RED BLOOD CELL COUNT 4.23 mill/uL (4.7-6.1); RED CELL DISTRIBUTION WIDTH 16.7 % (11.6-14.6)
[2021-07-17 07:32] LABS: CHLORIDE 102 mEq/L (98-107)
[2021-07-17] MEDS: LOSARTAN POTASSIUM 50 MG TABLET PO SCH (09:00)
[2021-07-17] MEDS: AMLODIPINE 5MG TABLET PO SCH (09:00)
[2021-07-17] MEDS: DOCUSATE SODIUM SUGAR FREE 100MG/10ML UDC NG SCH (10:00)
[2021-07-17] MEDS: ZINC SULFATE 220 MG ( 50 ) CAPSULE PO SCH (10:00)
[2021-07-17] MEDS: ASCORBIC ACID 500 MG TABLET PO SCH (10:00)
[2021-07-17] MEDS: PREDNISONE 20MG TABLET PO SCH (10:00)
[2021-07-17] MEDS: PANTOPRAZOLE SODIUM 40 MG/VIAL IV SCH ×2 (12:51→21:11)
[2021-07-17] MEDS ORDERED: SORBITOL 70% SOLN 30ML PO NR (19:00)
[2021-07-17] MEDS: SENNOSIDES 8.6MG TABLET NG SCH (21:11)
[2021-07-17] MEDS: ACETAMINOPHEN 650MG/20.3ML UDC PO PRN (21:11)
[2021-07-18] VITALS (12 sets, daily range): BP systolic 100–126; BP diastolic 59–75
[2021-07-18] MEDS: IPRATROPIUM/ALBUTEROL 0.5-3(2.5)MG/3ML NEB HHN SCH ×6 (00:21→22:20)
[2021-07-18] MEDS: INSULIN LISPRO 100 UNITS/ML SUBCUT SCH ×4 (05:58→23:43)
[2021-07-18] MEDS: BLOOD SUGAR DIAGNOSTIC STRIP TEST SCH ×5 (05:58→23:42)
[2021-07-18] MEDS: LACTULOSE 20G/30ML UDC PO SCH ×3 (06:12→21:02)
[2021-07-18] MEDS: AMLODIPINE 5MG TABLET PO SCH (08:43)
[2021-07-18] MEDS: DOCUSATE SODIUM SUGAR FREE 100MG/10ML UDC NG SCH (08:43)
[2021-07-18] MEDS: LOSARTAN POTASSIUM 50 MG TABLET PO SCH (08:43)
[2021-07-18] MEDS: PREDNISONE 20MG TABLET PO SCH (08:43)
[2021-07-18] MEDS: PANTOPRAZOLE SODIUM 40 MG/VIAL IV SCH ×2 (08:43→21:02)
[2021-07-18] MEDS: ASCORBIC ACID 500 MG TABLET PO SCH (08:48)
[2021-07-18] MEDS: ZINC SULFATE 220 MG ( 50 ) CAPSULE PO SCH (08:48)
[2021-07-18 14:12] LABS: BG BASE EXCESS 13.3 mmol/L (-2.0-2.0); BG CARBOXYHEMOGLOBIN 0.4 % (0.5-1.5); BG FRACTION INSPIRED OXYGEN 40; BG HCO3 ACT 39.7 mmol/L (22.0-26.0); BG METHEMOGLOBIN 0.3 % (0.0-1.5); BG OXYHEMOGLOBIN 97.3 % (94.0-97.0); BG PCO2 59.8 mmHg (35.0-45.0); BG PO2 95.6 mmHg (75.0-100.0); BG SAMPLE SITE LEFT RADIAL; BG TOTAL HEMOGLOBIN 11.3 g/dL (12.0-18.0); BG TOTAL RESPIRATORY RATE 22 b/min; BG VENT MODE VENT - SIMV
[2021-07-18] MEDS: BISACODYL 10MG SUPP PR SCH (14:53)
[2021-07-18] MEDS ORDERED: MAGNESIUM CITRATE 300ML SOLUTION GT NR (15:30)
[2021-07-18] MEDS: ONDANSETRON HCL 4MG/2ML INJ IV PRN (16:54)
[2021-07-18] MEDS: SENNOSIDES 8.6MG TABLET NG SCH (21:02)
[2021-07-19] VITALS (12 sets, daily range): BP systolic 89–119; BP diastolic 59–72
[2021-07-19] MEDS: IPRATROPIUM/ALBUTEROL 0.5-3(2.5)MG/3ML NEB HHN SCH ×5 (00:30→21:20)
[2021-07-19] MEDS: INSULIN LISPRO 100 UNITS/ML SUBCUT SCH ×4 (05:14→23:21)
[2021-07-19] MEDS: LACTULOSE 20G/30ML UDC PO SCH ×3 (05:55→21:46)
[2021-07-19] MEDS: BLOOD SUGAR DIAGNOSTIC STRIP TEST SCH ×4 (06:00→23:13)
[2021-07-19] MEDS: AMLODIPINE 5MG TABLET PO SCH (08:21)
[2021-07-19] MEDS: DOCUSATE SODIUM SUGAR FREE 100MG/10ML UDC NG SCH (08:21)
[2021-07-19] MEDS: ZINC SULFATE 220 MG ( 50 ) CAPSULE PO SCH (08:21)
[2021-07-19] MEDS: BISACODYL 10MG SUPP PR SCH (08:21)
[2021-07-19] MEDS: ASCORBIC ACID 500 MG TABLET PO SCH (08:21)
[2021-07-19] MEDS: PANTOPRAZOLE SODIUM 40 MG/VIAL IV SCH ×2 (08:21→21:46)
[2021-07-19] MEDS: PREDNISONE 20MG TABLET PO SCH (08:21)
[2021-07-19] MEDS: LOSARTAN POTASSIUM 50 MG TABLET PO SCH (08:22)
[2021-07-19] MEDS: METOCLOPRAMIDE HCL 10MG/2ML VIAL IV SCH ×2 (17:10→23:13)
[2021-07-19] MEDS: SENNOSIDES 8.6MG TABLET NG SCH (21:46)
[2021-07-20] VITALS (17 sets, daily range): BP systolic 80–126; BP diastolic 47–79
[2021-07-20] MEDS: IPRATROPIUM/ALBUTEROL 0.5-3(2.5)MG/3ML NEB HHN SCH ×6 (01:09→19:45)
[2021-07-20] MEDS: INSULIN LISPRO 100 UNITS/ML SUBCUT SCH ×4 (05:21→23:13)
[2021-07-20] MEDS: METOCLOPRAMIDE HCL 10MG/2ML VIAL IV SCH ×4 (05:21→23:10)
[2021-07-20] MEDS: BLOOD SUGAR DIAGNOSTIC STRIP TEST SCH ×4 (05:22→23:12)
[2021-07-20] MEDS: LACTULOSE 20G/30ML UDC PO SCH ×3 (06:14→21:02)
[2021-07-20] MEDS: DOCUSATE SODIUM SUGAR FREE 100MG/10ML UDC NG SCH (09:09)
[2021-07-20] MEDS: BISACODYL 10MG SUPP PR SCH (09:09)
[2021-07-20] MEDS: ZINC SULFATE 220 MG ( 50 ) CAPSULE PO SCH (09:10)
[2021-07-20] MEDS: ASCORBIC ACID 500 MG TABLET PO SCH (09:10)
[2021-07-20] MEDS: LOSARTAN POTASSIUM 50 MG TABLET PO SCH (09:10)
[2021-07-20] MEDS: PREDNISONE 20MG TABLET PO SCH (09:11)
[2021-07-20] MEDS: AMLODIPINE 5MG TABLET PO SCH (09:11)
[2021-07-20] MEDS: PANTOPRAZOLE SODIUM 40 MG/VIAL IV SCH ×2 (09:12→20:59)
[2021-07-20 09:50] LABS: BG BASE EXCESS 9.1 mmol/L (-2.0-2.0); BG CARBOXYHEMOGLOBIN 0.5 % (0.5-1.5); BG DEOXYHEMOGLOBIN 4.3 % (0.0-5.0); BG HCO3 ACT 34.7 mmol/L (22.0-26.0); BG METHEMOGLOBIN 0.2 % (0.0-1.5); BG OXYGEN SATURATION 95.7 % (92.0-98.5); BG PCO2 52.2 mmHg (35.0-45.0); BG PO2 80.6 mmHg (75.0-100.0); BG SAMPLE SITE RIGHT RADIAL; BG TOTAL HEMOGLOBIN 11.4 g/dL (12.0-18.0); BG VENT MODE VENT - SIMV
[2021-07-20] MEDS: SENNOSIDES 8.6MG TABLET NG SCH (20:59)
[2021-07-20] MEDS ORDERED: SODIUM CHLORIDE 0.9% 500 ML IV NR (21:30)
[2021-07-20] MEDS: SODIUM CHLORIDE 0.9% 1,000 ML IV SCH (22:32)
[2021-07-21] VITALS (14 sets, daily range): BP systolic 88–108; BP diastolic 56–69
[2021-07-21] MEDS: IPRATROPIUM/ALBUTEROL 0.5-3(2.5)MG/3ML NEB HHN SCH ×7 (00:04→23:47)
[2021-07-21] MEDS: METOCLOPRAMIDE HCL 10MG/2ML VIAL IV SCH ×4 (05:05→23:01)
[2021-07-21] MEDS: LACTULOSE 20G/30ML UDC PO SCH ×3 (05:05→21:03)
[2021-07-21] MEDS: INSULIN LISPRO 100 UNITS/ML SUBCUT SCH ×3 (06:00→17:49)
[2021-07-21] MEDS: BLOOD SUGAR DIAGNOSTIC STRIP TEST SCH ×4 (06:00→23:02)
[2021-07-21] MEDS: SODIUM CHLORIDE 0.9% 1,000 ML IV SCH ×2 (08:55→17:50)
[2021-07-21] MEDS: DOCUSATE SODIUM SUGAR FREE 100MG/10ML UDC NG SCH (08:56)
[2021-07-21] MEDS: PREDNISONE 20MG TABLET PO SCH (08:56)
[2021-07-21] MEDS: ZINC SULFATE 220 MG ( 50 ) CAPSULE PO SCH (08:56)
[2021-07-21] MEDS: ASCORBIC ACID 500 MG TABLET PO SCH (08:56)
[2021-07-21] MEDS: BISACODYL 10MG SUPP PR SCH (08:56)
[2021-07-21] MEDS: LOSARTAN POTASSIUM 50 MG TABLET PO SCH (08:56)
[2021-07-21] MEDS: AMLODIPINE 5MG TABLET PO SCH (08:57)
[2021-07-21] MEDS: ACETAMINOPHEN 650MG/20.3ML UDC PO PRN (09:29)
[2021-07-21] MEDS: PANTOPRAZOLE SODIUM 40 MG/VIAL IV SCH ×2 (09:32→20:52)
[2021-07-21 12:43] LABS: HEMATOCRIT. 31.1 % (42.0-52.0); HEMOGLOBIN. 9.5 g/dL (14.0-18.0); MEAN CORPUSCULAR HEMOGLOBIN 24.9 pg (28.0-32.0); MEAN CORPUSCULAR VOLUME 81.2 fL (80.0-94.0); MEAN PLATELET VOLUME 7.6 fl (7.4-10.4); PLATELET 257 x1000/uL (130-400); RED BLOOD CELL COUNT 3.83 mill/uL (4.7-6.1); RED CELL DISTRIBUTION WIDTH 18.9 % (11.6-14.6)
[2021-07-21 13:06] LABS: CHLORIDE 111 mEq/L (98-107)
[2021-07-21 15:01] LABS: CLARITY URINE TURBID (CLEAR); COLOR URINE DK YELLOW (YELLOW); KETONES URINE TRACE (NEGATIVE); LEUKOCYTE ESTERASE URINE 3+ (NEGATIVE); NITRITE URINE NEGATIVE (NEGATIVE); OCCULT BLOOD URINE 3+ (NEGATIVE); PROTEIN URINE 2+ (NEGATIVE); SPECIFIC GRAVITY URINE 1.039 (1.005-1.030)
[2021-07-21] MEDS ORDERED: CEFTRIAXONE 1 G PREMIX 50 ML IV SCH (17:45)
[2021-07-21] MEDS ORDERED: METOCLOPRAMIDE HCL 10MG/2ML VIAL IV SCH (18:00)
[2021-07-21] MEDS: CEFTRIAXONE 1,000 MG in DEXTROSE 5% WATER 50 ML IV SCH (20:52)
[2021-07-21] MEDS: SENNOSIDES 8.6MG TABLET NG SCH (20:53)
[2021-07-21 21:00] LABS: PLATELET ESTIMATE NORMAL
[2021-07-22] VITALS (13 sets, daily range): BP systolic 85–116; BP diastolic 52–66
[2021-07-22] MEDS: IPRATROPIUM/ALBUTEROL 0.5-3(2.5)MG/3ML NEB HHN SCH ×6 (03:39→23:54)
[2021-07-22] MEDS: METOCLOPRAMIDE HCL 10MG/2ML VIAL IV SCH ×3 (05:11→18:12)
[2021-07-22] MEDS: SODIUM CHLORIDE 0.9% 1,000 ML IV SCH ×2 (05:12→15:57)
[2021-07-22] MEDS: BLOOD SUGAR DIAGNOSTIC STRIP TEST SCH ×3 (06:00→17:45)
[2021-07-22] MEDS: INSULIN LISPRO 100 UNITS/ML SUBCUT SCH ×4 (06:00→17:45)
[2021-07-22] MEDS: LACTULOSE 20G/30ML UDC PO SCH ×3 (06:14→22:00)
[2021-07-22 06:18] LABS: BASOPHILS % 0.1 % (0.0-2.0); EOSINOPHILS % 0.3 % (0.0-5.0); HEMATOCRIT. 27.7 % (42.0-52.0); MEAN CORPUSCULAR HEMOGLOBIN 26.1 pg (28.0-32.0); MEAN CORPUSCULAR VOLUME 80.5 fL (80.0-94.0); MEAN PLATELET VOLUME 7.5 fl (7.4-10.4); MONOCYTES % 4.7 % (2.0-8.0); NEUTROPHILS % 83.9 % (40.0-76.0); PLATELET 214 x1000/uL (130-400); RED BLOOD CELL COUNT 3.44 mill/uL (4.7-6.1); RED CELL DISTRIBUTION WIDTH 18.2 % (11.6-14.6)
[2021-07-22 06:20] LABS: CHLORIDE 111 mEq/L (98-107)
[2021-07-22] MEDS: BISACODYL 10MG SUPP PR SCH (09:00)
[2021-07-22] MEDS: DOCUSATE SODIUM SUGAR FREE 100MG/10ML UDC NG SCH (09:00)
[2021-07-22] MEDS: ZINC SULFATE 220 MG ( 50 ) CAPSULE PO SCH (09:04)
[2021-07-22] MEDS: PANTOPRAZOLE SODIUM 40 MG/VIAL IV SCH ×2 (09:04→20:27)
[2021-07-22] MEDS: PREDNISONE 20MG TABLET PO SCH (09:04)
[2021-07-22] MEDS: ASCORBIC ACID 500 MG TABLET PO SCH (09:05)
[2021-07-22] MEDS: CEFTRIAXONE 1,000 MG in DEXTROSE 5% WATER 50 ML IV SCH (20:27)
[2021-07-22] MEDS: SENNOSIDES 8.6MG TABLET NG SCH (20:28)
[2021-07-22] MEDS ORDERED: LACTULOSE 20G/30ML UDC PO NR (21:45)
[2021-07-22] MEDS ORDERED: POLYETHYLENE GLYCOL 3350 (17GM) 1 DOSE PACK PO NR (21:45)
[2021-07-23] VITALS (12 sets, daily range): BP systolic 77–127; BP diastolic 45–70
[2021-07-23] MEDS: ACETAMINOPHEN 650MG/20.3ML UDC PO PRN ×2 (00:35→00:38)
[2021-07-23] MEDS: METOCLOPRAMIDE HCL 10MG/2ML VIAL IV SCH ×4 (00:35→17:54)
[2021-07-23] MEDS: SODIUM CHLORIDE 0.9% 1,000 ML IV SCH ×3 (00:42→20:52)
[2021-07-23] MEDS: IPRATROPIUM/ALBUTEROL 0.5-3(2.5)MG/3ML NEB HHN SCH ×5 (04:04→20:07)
[2021-07-23] MEDS: ONDANSETRON HCL 4MG/2ML INJ IV PRN (05:49)
[2021-07-23] MEDS: INSULIN LISPRO 100 UNITS/ML SUBCUT SCH ×4 (06:00→17:45)
[2021-07-23] MEDS: BLOOD SUGAR DIAGNOSTIC STRIP TEST SCH ×4 (06:00→17:44)
[2021-07-23] MEDS: LACTULOSE 20G/30ML UDC PO SCH ×3 (06:00→22:11)
[2021-07-23 06:40] LABS: HEMATOCRIT. 28.8 % (42.0-52.0); HEMOGLOBIN. 9.2 g/dL (14.0-18.0); MEAN CORPUSCULAR VOLUME 81.7 fL (80.0-94.0); MEAN PLATELET VOLUME 7.7 fl (7.4-10.4); PLATELET 200 x1000/uL (130-400); RED BLOOD CELL COUNT 3.52 mill/uL (4.7-6.1); RED CELL DISTRIBUTION WIDTH 18.3 % (11.6-14.6)
[2021-07-23 06:59] LABS: CHLORIDE 111 mEq/L (98-107)
[2021-07-23] MEDS: DOCUSATE SODIUM SUGAR FREE 100MG/10ML UDC NG SCH (09:28)
[2021-07-23] MEDS: ZINC SULFATE 220 MG ( 50 ) CAPSULE PO SCH (09:28)
[2021-07-23] MEDS: BISACODYL 10MG SUPP PR SCH (09:29)
[2021-07-23] MEDS: PREDNISONE 20MG TABLET PO SCH (09:29)
[2021-07-23] MEDS: ASCORBIC ACID 500 MG TABLET PO SCH (09:29)
[2021-07-23] MEDS ORDERED: MIDODRINE HCL 5MG TABLET PO SCH (10:15)
[2021-07-23] MEDS: MIDODRINE HCL 5MG TABLET PO SCH ×3 (10:49→22:13)
[2021-07-23 11:12] LABS: BG BASE EXCESS 6.6 mmol/L (-2.0-2.0); BG CARBOXYHEMOGLOBIN 0.8 % (0.5-1.5); BG DEOXYHEMOGLOBIN 3.2 % (0.0-5.0); BG FRACTION INSPIRED OXYGEN 35; BG HCO3 ACT 32.6 mmol/L (22.0-26.0); BG METHEMOGLOBIN 0.1 % (0.0-1.5); BG OXYGEN SATURATION 96.8 % (92.0-98.5); BG OXYHEMOGLOBIN 95.9 % (94.0-97.0); BG PCO2 55.8 mmHg (35.0-45.0); BG PH 7.385 (7.350-7.450); BG PO2 91.4 mmHg (75.0-100.0); BG SAMPLE SITE RIGHT RADIAL; BG TOTAL HEMOGLOBIN 9.2 g/dL (12.0-18.0); BG VENT MODE VENT - SIMV
[2021-07-23] MEDS: PANTOPRAZOLE SODIUM 40 MG/VIAL IV SCH ×2 (12:27→19:53)
[2021-07-23 17:49] LABS: PLATELET ESTIMATE NORMAL
[2021-07-23] MEDS: CEFTRIAXONE 1,000 MG in DEXTROSE 5% WATER 50 ML IV SCH (19:53)
[2021-07-23] MEDS: SENNOSIDES 8.6MG TABLET NG SCH (19:54)
[2021-07-24] VITALS (12 sets, daily range): BP systolic 88–120; BP diastolic 55–72
[2021-07-24] MEDS: METOCLOPRAMIDE HCL 10MG/2ML VIAL IV SCH ×5 (00:14→22:33)
[2021-07-24] MEDS: IPRATROPIUM/ALBUTEROL 0.5-3(2.5)MG/3ML NEB HHN SCH ×6 (00:18→21:28)
[2021-07-24] MEDS: LACTULOSE 20G/30ML UDC PO SCH ×3 (05:09→21:08)
[2021-07-24] MEDS: MIDODRINE HCL 5MG TABLET PO SCH ×3 (05:10→21:08)
[2021-07-24] MEDS: INSULIN LISPRO 100 UNITS/ML SUBCUT SCH ×5 (05:17→23:36)
[2021-07-24] MEDS: BLOOD SUGAR DIAGNOSTIC STRIP TEST SCH ×5 (05:17→23:36)
[2021-07-24] MEDS: SODIUM CHLORIDE 0.9% 1,000 ML IV SCH ×2 (06:30→16:25)
[2021-07-24 06:49] LABS: HEMATOCRIT. 28.3 % (42.0-52.0); MEAN CORPUSCULAR VOLUME 81.8 fL (80.0-94.0); MEAN PLATELET VOLUME 7.6 fl (7.4-10.4); PLATELET 211 x1000/uL (130-400); RED BLOOD CELL COUNT 3.46 mill/uL (4.7-6.1); RED CELL DISTRIBUTION WIDTH 18.3 % (11.6-14.6)
[2021-07-24 07:10] LABS: CHLORIDE 110 mEq/L (98-107)
[2021-07-24] MEDS: BISACODYL 10MG SUPP PR SCH (09:07)
[2021-07-24] MEDS: PREDNISONE 20MG TABLET PO SCH (09:07)
[2021-07-24] MEDS: ASCORBIC ACID 500 MG TABLET PO SCH (09:07)
[2021-07-24] MEDS: ZINC SULFATE 220 MG ( 50 ) CAPSULE PO SCH (09:07)
[2021-07-24] MEDS: PANTOPRAZOLE SODIUM 40 MG/VIAL IV SCH ×2 (09:07→20:25)
[2021-07-24] MEDS: DOCUSATE SODIUM SUGAR FREE 100MG/10ML UDC NG SCH (09:07)
[2021-07-24 13:52] LABS: PLATELET ESTIMATE NORMAL
[2021-07-24] MEDS: CEFEPIME 1,000 MG in DEXTROSE 5% WATER 50 ML IV SCH (16:25)
[2021-07-24] MEDS: SENNOSIDES 8.6MG TABLET NG SCH (20:25)
[2021-07-25] VITALS (12 sets, daily range): BP systolic 96–128; BP diastolic 60–79
[2021-07-25] MEDS: IPRATROPIUM/ALBUTEROL 0.5-3(2.5)MG/3ML NEB HHN SCH ×6 (01:37→20:06)
[2021-07-25] MEDS: SODIUM CHLORIDE 0.9% 1,000 ML IV SCH ×3 (03:08→22:03)
[2021-07-25] MEDS: LACTULOSE 20G/30ML UDC PO SCH ×3 (05:09→21:11)
[2021-07-25] MEDS: CEFEPIME 1,000 MG in DEXTROSE 5% WATER 50 ML IV SCH ×2 (05:09→17:08)
[2021-07-25] MEDS: METOCLOPRAMIDE HCL 10MG/2ML VIAL IV SCH ×3 (05:09→17:08)
[2021-07-25] MEDS: MIDODRINE HCL 5MG TABLET PO SCH ×3 (05:10→21:14)
[2021-07-25] MEDS: INSULIN LISPRO 100 UNITS/ML SUBCUT SCH ×3 (05:15→17:08)
[2021-07-25] MEDS: BLOOD SUGAR DIAGNOSTIC STRIP TEST SCH ×3 (05:15→17:08)
[2021-07-25 06:40] LABS: BASOPHILS % 0.3 % (0.0-2.0); EOSINOPHILS % 1.1 % (0.0-5.0); HEMATOCRIT. 29.4 % (42.0-52.0); HEMOGLOBIN. 9.1 g/dL (14.0-18.0); LYMPHOCYTES % 14.8 % (20.0-50.0); MEAN CORPUSCULAR HEMOGLOBIN 26.1 pg (28.0-32.0); MEAN CORPUSCULAR VOLUME 84.2 fL (80.0-94.0); MEAN PLATELET VOLUME 8.8 fl (7.4-10.4); NEUTROPHILS % 77.8 % (40.0-76.0); PLATELET 77 x1000/uL (130-400); RED BLOOD CELL COUNT 3.49 mill/uL (4.7-6.1); RED CELL DISTRIBUTION WIDTH 19.4 % (11.6-14.6)
[2021-07-25] MEDS: ZINC SULFATE 220 MG ( 50 ) CAPSULE PO SCH (08:41)
[2021-07-25] MEDS: PREDNISONE 20MG TABLET PO SCH (08:41)
[2021-07-25] MEDS: PANTOPRAZOLE SODIUM 40 MG/VIAL IV SCH ×2 (08:41→21:11)
[2021-07-25] MEDS: ASCORBIC ACID 500 MG TABLET PO SCH (08:41)
[2021-07-25] MEDS: BISACODYL 10MG SUPP PR SCH (08:42)
[2021-07-25] MEDS: DOCUSATE SODIUM SUGAR FREE 100MG/10ML UDC NG SCH (08:42)
[2021-07-25 08:46] LABS: CHLORIDE 110 mEq/L (98-107)
[2021-07-25 12:12] LABS: BG BASE EXCESS 2.5 mmol/L (-2.0-2.0); BG CARBOXYHEMOGLOBIN 0.3 % (0.5-1.5); BG DEOXYHEMOGLOBIN 3.5 % (0.0-5.0); BG FRACTION INSPIRED OXYGEN 35; BG METHEMOGLOBIN 0.2 % (0.0-1.5); BG OXYGEN SATURATION 96.5 % (92.0-98.5); BG PCO2 55.3 mmHg (35.0-45.0); BG PH 7.338 (7.350-7.450); BG PO2 96.1 mmHg (75.0-100.0); BG SAMPLE SITE RIGHT RADIAL; BG TOTAL HEMOGLOBIN 9.6 g/dL (12.0-18.0); BG TOTAL RESPIRATORY RATE 13 b/min; BG VENT MODE VENT - AC
[2021-07-25] MEDS: SENNOSIDES 8.6MG TABLET NG SCH (21:11)
[2021-07-26] VITALS (12 sets, daily range): BP systolic 95–125; BP diastolic 56–84
[2021-07-26] MEDS: METOCLOPRAMIDE HCL 10MG/2ML VIAL IV SCH ×3 (00:06→12:58)
[2021-07-26] MEDS: BLOOD SUGAR DIAGNOSTIC STRIP TEST SCH ×5 (00:08→23:36)
[2021-07-26] MEDS: IPRATROPIUM/ALBUTEROL 0.5-3(2.5)MG/3ML NEB HHN SCH ×6 (00:26→20:40)
[2021-07-26] MEDS: CEFEPIME 1,000 MG in DEXTROSE 5% WATER 50 ML IV SCH ×2 (04:43→17:04)
[2021-07-26] MEDS: LACTULOSE 20G/30ML UDC PO SCH ×2 (05:33→13:02)
[2021-07-26] MEDS: INSULIN LISPRO 100 UNITS/ML SUBCUT SCH ×5 (05:33→23:36)
[2021-07-26] MEDS: MIDODRINE HCL 5MG TABLET PO SCH ×2 (05:33→13:02)
[2021-07-26] MEDS: DOCUSATE SODIUM SUGAR FREE 100MG/10ML UDC NG SCH (08:00)
[2021-07-26] MEDS: PREDNISONE 20MG TABLET PO SCH (08:01)
[2021-07-26] MEDS: BISACODYL 10MG SUPP PR SCH (08:01)
[2021-07-26] MEDS: ZINC SULFATE 220 MG ( 50 ) CAPSULE PO SCH (08:01)
[2021-07-26] MEDS: PANTOPRAZOLE SODIUM 40 MG/VIAL IV SCH (08:01)
[2021-07-26] MEDS: ASCORBIC ACID 500 MG TABLET PO SCH (08:01)
[2021-07-26] MEDS: SODIUM CHLORIDE 0.9% 1,000 ML IV SCH ×2 (08:01→17:05)
[2021-07-26 08:23] LABS: BASOPHILS % 0.3 % (0.0-2.0); EOSINOPHILS % 1.1 % (0.0-5.0); HEMATOCRIT. 25.2 % (42.0-52.0); HEMOGLOBIN. 8.2 g/dL (14.0-18.0); LYMPHOCYTES % 12.4 % (20.0-50.0); MEAN CORPUSCULAR HEMOGLOBIN 26.4 pg (28.0-32.0); MEAN CORPUSCULAR VOLUME 81.5 fL (80.0-94.0); MEAN PLATELET VOLUME 7.4 fl (7.4-10.4); NEUTROPHILS % 80.2 % (40.0-76.0); PLATELET 255 x1000/uL (130-400); RED BLOOD CELL COUNT 3.09 mill/uL (4.7-6.1); RED CELL DISTRIBUTION WIDTH 19.4 % (11.6-14.6)
[2021-07-26 08:33] LABS: CHLORIDE 109 mEq/L (98-107)
[2021-07-26] MEDS ORDERED: POTASSIUM CHLORIDE 20MEQ/PACKET PEG NR (12:00)
[2021-07-26] MEDS: SENNOSIDES 8.6MG TABLET NG SCH (21:17)
[2021-07-27] VITALS (13 sets, daily range): BP systolic 96–136; BP diastolic 59–84
[2021-07-27] MEDS: IPRATROPIUM/ALBUTEROL 0.5-3(2.5)MG/3ML NEB HHN SCH ×5 (00:51→16:58)
[2021-07-27] MEDS: SODIUM CHLORIDE 0.9% 1,000 ML IV SCH (04:30)
[2021-07-27 05:59] LABS: BASOPHILS % 0.2 % (0.0-2.0); EOSINOPHILS % 0.6 % (0.0-5.0); HEMATOCRIT. 27.9 % (42.0-52.0); HEMOGLOBIN. 9.2 g/dL (14.0-18.0); LYMPHOCYTES % 11.4 % (20.0-50.0); MEAN CORPUSCULAR HEMOGLOBIN 26.5 pg (28.0-32.0); MEAN CORPUSCULAR VOLUME 80.4 fL (80.0-94.0); MEAN PLATELET VOLUME 7.7 fl (7.4-10.4); MONOCYTES % 6.4 % (2.0-8.0); NEUTROPHILS % 81.4 % (40.0-76.0); PLATELET 295 x1000/uL (130-400); RED BLOOD CELL COUNT 3.47 mill/uL (4.7-6.1); RED CELL DISTRIBUTION WIDTH 19.3 % (11.6-14.6)
[2021-07-27] MEDS: INSULIN LISPRO 100 UNITS/ML SUBCUT SCH ×4 (06:00→23:24)
[2021-07-27] MEDS: CEFEPIME 1,000 MG in DEXTROSE 5% WATER 50 ML IV SCH ×2 (06:11→16:24)
[2021-07-27 06:12] LABS: CHLORIDE 105 mEq/L (98-107)
[2021-07-27] MEDS: BLOOD SUGAR DIAGNOSTIC STRIP TEST SCH ×4 (06:13→23:24)
[2021-07-27] MEDS: ASCORBIC ACID 500 MG TABLET PO SCH (09:18)
[2021-07-27] MEDS: ZINC SULFATE 220 MG ( 50 ) CAPSULE PO SCH (09:18)
[2021-07-27] MEDS: PREDNISONE 20MG TABLET PO SCH (09:18)
[2021-07-27] MEDS: DOCUSATE SODIUM SUGAR FREE 100MG/10ML UDC NG SCH (09:19)
[2021-07-27] MEDS: BISACODYL 10MG SUPP PR SCH (09:19)
[2021-07-27] MEDS ORDERED: POTASSIUM CHLORIDE 20MEQ/PACKET PEG SCH (10:00)
[2021-07-27] MEDS: SENNOSIDES 8.6MG TABLET NG SCH (20:42)
[2021-07-28] VITALS (12 sets, daily range): BP systolic 87–112; BP diastolic 52–68
[2021-07-28] MEDS: CEFEPIME 1,000 MG in DEXTROSE 5% WATER 50 ML IV SCH ×2 (05:35→18:09)
[2021-07-28] MEDS: BLOOD SUGAR DIAGNOSTIC STRIP TEST SCH ×4 (05:35→23:37)
[2021-07-28] MEDS: INSULIN LISPRO 100 UNITS/ML SUBCUT SCH ×4 (05:36→23:37)
[2021-07-28] MEDS: DOCUSATE SODIUM SUGAR FREE 100MG/10ML UDC NG SCH (09:00)
[2021-07-28] MEDS: BISACODYL 10MG SUPP PR SCH (09:00)
[2021-07-28] MEDS ORDERED: MIDODRINE HCL 5MG TABLET PO SCH (09:00)
[2021-07-28] MEDS: ZINC SULFATE 220 MG ( 50 ) CAPSULE PO SCH (09:42)
[2021-07-28] MEDS: ASCORBIC ACID 500 MG TABLET PO SCH (09:42)
[2021-07-28] MEDS: PREDNISONE 20MG TABLET PO SCH (09:42)
[2021-07-28] MEDS: MIDODRINE HCL 5MG TABLET PO SCH ×3 (09:43→21:30)
[2021-07-28] MEDS: SODIUM CHLORIDE 0.9% 1,000 ML IV SCH (19:00)
[2021-07-28] MEDS: SENNOSIDES 8.6MG TABLET NG SCH (19:48)
[2021-07-29] VITALS (12 sets, daily range): BP systolic 95–130; BP diastolic 57–82
[2021-07-29] MEDS: SODIUM CHLORIDE 0.9% 1,000 ML IV SCH ×2 (04:20→15:04)
[2021-07-29] MEDS: CEFEPIME 1,000 MG in DEXTROSE 5% WATER 50 ML IV SCH ×2 (04:20→17:11)
[2021-07-29] MEDS: MIDODRINE HCL 5MG TABLET PO SCH ×3 (05:16→21:18)
[2021-07-29] MEDS: INSULIN LISPRO 100 UNITS/ML SUBCUT SCH ×3 (05:26→17:11)
[2021-07-29] MEDS: BLOOD SUGAR DIAGNOSTIC STRIP TEST SCH ×4 (05:26→23:24)
[2021-07-29] MEDS: ZINC SULFATE 220 MG ( 50 ) CAPSULE PO SCH (09:00)
[2021-07-29] MEDS: PREDNISONE 20MG TABLET PO SCH (09:00)
[2021-07-29] MEDS: BISACODYL 10MG SUPP PR SCH (09:00)
[2021-07-29] MEDS: ASCORBIC ACID 500 MG TABLET PO SCH (09:00)
[2021-07-29] MEDS: DOCUSATE SODIUM SUGAR FREE 100MG/10ML UDC NG SCH (13:30)
[2021-07-29] MEDS: SENNOSIDES 8.6MG TABLET NG SCH (21:17)
[2021-07-29] MEDS: MUPIROCIN 2% OINT 22GM TOP SCH (21:18)
[2021-07-30] VITALS (12 sets, daily range): BP systolic 107–129; BP diastolic 66–79
[2021-07-30] MEDS: SODIUM CHLORIDE 0.9% 1,000 ML IV SCH ×3 (02:12→23:43)
[2021-07-30] MEDS: BLOOD SUGAR DIAGNOSTIC STRIP TEST SCH ×4 (05:47→23:33)
[2021-07-30] MEDS: MIDODRINE HCL 5MG TABLET PO SCH ×3 (05:53→21:18)
[2021-07-30] MEDS: INSULIN LISPRO 100 UNITS/ML SUBCUT SCH ×5 (05:53→23:46)
[2021-07-30] MEDS: ASCORBIC ACID 500 MG TABLET PO SCH (08:38)
[2021-07-30] MEDS: BISACODYL 10MG SUPP PR SCH (08:38)
[2021-07-30] MEDS: DOCUSATE SODIUM SUGAR FREE 100MG/10ML UDC NG SCH (08:38)
[2021-07-30] MEDS: MUPIROCIN 2% OINT 22GM TOP SCH ×2 (08:38→20:50)
[2021-07-30] MEDS: ZINC SULFATE 220 MG ( 50 ) CAPSULE PO SCH (08:38)
[2021-07-30] MEDS: PREDNISONE 20MG TABLET PO SCH (08:38)
[2021-07-30] MEDS: SENNOSIDES 8.6MG TABLET NG SCH (20:49)
[2021-07-30] MEDS: LACTULOSE 20G/30ML UDC PO SCH (21:18)
[2021-07-31] VITALS (12 sets, daily range): BP systolic 110–132; BP diastolic 62–81
[2021-07-31] MEDS: LACTULOSE 20G/30ML UDC PO SCH ×3 (05:44→21:27)
[2021-07-31] MEDS: MIDODRINE HCL 5MG TABLET PO SCH ×3 (05:45→21:27)
[2021-07-31] MEDS: BLOOD SUGAR DIAGNOSTIC STRIP TEST SCH ×3 (05:45→17:00)
[2021-07-31] MEDS: INSULIN LISPRO 100 UNITS/ML SUBCUT SCH ×3 (05:48→17:00)
[2021-07-31 07:41] LABS: BASOPHILS % 0.6 % (0.0-2.0); EOSINOPHILS % 1.7 % (0.0-5.0); HEMATOCRIT. 29.8 % (42.0-52.0); HEMOGLOBIN. 9.8 g/dL (14.0-18.0); LYMPHOCYTES % 20.8 % (20.0-50.0); MEAN CORPUSCULAR HEMOGLOBIN 26.6 pg (28.0-32.0); MEAN CORPUSCULAR VOLUME 81.2 fL (80.0-94.0); MEAN PLATELET VOLUME 7.6 fl (7.4-10.4); MONOCYTES % 5.3 % (2.0-8.0); NEUTROPHILS % 71.6 % (40.0-76.0); PLATELET 402 x1000/uL (130-400); RED BLOOD CELL COUNT 3.67 mill/uL (4.7-6.1); RED CELL DISTRIBUTION WIDTH 20.8 % (11.6-14.6)
[2021-07-31 07:45] LABS: CHLORIDE 104 mEq/L (98-107)
[2021-07-31] MEDS: DOCUSATE SODIUM SUGAR FREE 100MG/10ML UDC NG SCH (08:57)
[2021-07-31] MEDS: ASCORBIC ACID 500 MG TABLET PO SCH (08:57)
[2021-07-31] MEDS: ZINC SULFATE 220 MG ( 50 ) CAPSULE PO SCH (08:57)
[2021-07-31] MEDS: BISACODYL 10MG SUPP PR SCH (08:57)
[2021-07-31] MEDS: PREDNISONE 20MG TABLET PO SCH (08:57)
[2021-07-31] MEDS: SODIUM CHLORIDE 0.9% 1,000 ML IV SCH ×3 (08:58→22:22)
[2021-07-31] MEDS: MUPIROCIN 2% OINT 22GM TOP SCH ×2 (08:58→21:24)
[2021-07-31] MEDS ORDERED: POTASSIUM CHLORIDE 20MEQ/PACKET PO SCH (09:30)
[2021-07-31] MEDS ORDERED: MAGNESIUM 2 G PREMIX 50 ML IV ONE (10:45)
[2021-07-31] MEDS ORDERED: KCL 20MEQ/100ML PREMIX 100 ML IV SCH (11:00)
[2021-07-31] MEDS ORDERED: IPRATROPIUM/ALBUTEROL 0.5-3(2.5)MG/3ML NEB HHN PRN (14:15)
[2021-07-31] MEDS ORDERED: SODIUM CHLORIDE 3% FOR INH 4ML UD NEB INH SCH (15:00)
[2021-07-31] MEDS: ACETYLCYSTEINE 100MG/ML 10% VIAL 4ML INH SCH ×2 (15:22→23:49)
[2021-07-31] MEDS: IPRATROPIUM/ALBUTEROL 0.5-3(2.5)MG/3ML NEB HHN SCH ×3 (15:22→23:49)
[2021-07-31] MEDS ORDERED: POTASSIUM CHLORIDE 20MEQ/PACKET GT NR (17:00)
[2021-07-31] MEDS: SENNOSIDES 8.6MG TABLET NG SCH (21:27)
[2021-07-31] MEDS ORDERED: ACETYLCYSTEINE 100MG/ML 10% VIAL 4ML INH SCH (22:00)
[2021-08-01] VITALS (13 sets, daily range): BP systolic 106–138; BP diastolic 66–87
[2021-08-01] MEDS: LACTULOSE 20G/30ML UDC PO SCH ×3 (05:22→21:47)
[2021-08-01] MEDS: INSULIN LISPRO 100 UNITS/ML SUBCUT SCH ×4 (05:22→17:11)
[2021-08-01] MEDS: BLOOD SUGAR DIAGNOSTIC STRIP TEST SCH ×4 (05:22→17:11)
[2021-08-01] MEDS: SODIUM CHLORIDE 0.9% 1,000 ML IV SCH ×2 (05:23→23:00)
[2021-08-01] MEDS: MIDODRINE HCL 5MG TABLET PO SCH ×3 (05:23→21:47)
[2021-08-01 07:51] LABS: BASOPHILS % 0.3 % (0.0-2.0); EOSINOPHILS % 0.6 % (0.0-5.0); HEMATOCRIT. 29.3 % (42.0-52.0); HEMOGLOBIN. 9.5 g/dL (14.0-18.0); LYMPHOCYTES % 17.2 % (20.0-50.0); MEAN CORPUSCULAR HEMOGLOBIN 26.4 pg (28.0-32.0); MEAN CORPUSCULAR VOLUME 81.8 fL (80.0-94.0); MEAN PLATELET VOLUME 8.7 fl (7.4-10.4); MONOCYTES % 3.4 % (2.0-8.0); NEUTROPHILS % 78.5 % (40.0-76.0); PLATELET 187 x1000/uL (130-400); RED BLOOD CELL COUNT 3.58 mill/uL (4.7-6.1)
[2021-08-01 07:57] LABS: CHLORIDE 105 mEq/L (98-107)
[2021-08-01] MEDS: IPRATROPIUM/ALBUTEROL 0.5-3(2.5)MG/3ML NEB HHN SCH ×3 (08:15→17:29)
[2021-08-01] MEDS: ACETYLCYSTEINE 100MG/ML 10% VIAL 4ML INH SCH ×2 (08:15→17:29)
[2021-08-01] MEDS: BISACODYL 10MG SUPP PR SCH (09:00)
[2021-08-01] MEDS: ZINC SULFATE 220 MG ( 50 ) CAPSULE PO SCH (09:51)
[2021-08-01] MEDS: PREDNISONE 20MG TABLET PO SCH (09:51)
[2021-08-01] MEDS: ASCORBIC ACID 500 MG TABLET PO SCH (09:51)
[2021-08-01] MEDS: MUPIROCIN 2% OINT 22GM TOP SCH ×2 (09:52→21:48)
[2021-08-01] MEDS: DOCUSATE SODIUM SUGAR FREE 100MG/10ML UDC NG SCH (09:52)
[2021-08-01] MEDS ORDERED: POTASSIUM CHLORIDE 20MEQ/PACKET GT NR (11:45)
[2021-08-01] MEDS: SODIUM CHLORIDE 3% FOR INH 4ML UD NEB INH SCH (12:45)
[2021-08-01] MEDS: SENNOSIDES 8.6MG TABLET NG SCH (21:47)
[2021-08-02] VITALS (12 sets, daily range): BP systolic 106–146; BP diastolic 66–82
[2021-08-02] MEDS: INSULIN LISPRO 100 UNITS/ML SUBCUT SCH
[2021-08-02] MEDS: IPRATROPIUM/ALBUTEROL 0.5-3(2.5)MG/3ML NEB HHN SCH ×6 (00:11→20:51)
[2021-08-02] MEDS: BLOOD SUGAR DIAGNOSTIC STRIP TEST SCH (00:39)
[2021-08-02] MEDS: ACETYLCYSTEINE 100MG/ML 10% VIAL 4ML INH SCH ×4 (01:08→20:51)
[2021-08-02] MEDS: SODIUM CHLORIDE 3% FOR INH 4ML UD NEB INH SCH ×2 (01:09→08:53)
[2021-08-02] MEDS: MIDODRINE HCL 5MG TABLET PO SCH ×3 (05:23→21:42)
[2021-08-02] MEDS: LACTULOSE 20G/30ML UDC PO SCH ×3 (05:23→21:42)
[2021-08-02 07:03] LABS: BASOPHILS % 0.4 % (0.0-2.0); EOSINOPHILS % 1.3 % (0.0-5.0); HEMATOCRIT. 28.2 % (42.0-52.0); HEMOGLOBIN. 9.1 g/dL (14.0-18.0); LYMPHOCYTES % 19.9 % (20.0-50.0); MEAN CORPUSCULAR HEMOGLOBIN 26.6 pg (28.0-32.0); MEAN CORPUSCULAR VOLUME 82.5 fL (80.0-94.0); MONOCYTES % 3.7 % (2.0-8.0); NEUTROPHILS % 74.7 % (40.0-76.0); PLATELET 370 x1000/uL (130-400); RED BLOOD CELL COUNT 3.42 mill/uL (4.7-6.1); RED CELL DISTRIBUTION WIDTH 22.4 % (11.6-14.6)
[2021-08-02 07:12] LABS: CHLORIDE 106 mEq/L (98-107)
[2021-08-02] MEDS: BISACODYL 10MG SUPP PR SCH (09:00)
[2021-08-02] MEDS: MUPIROCIN 2% OINT 22GM TOP SCH ×2 (09:05→21:43)
[2021-08-02] MEDS: ZINC SULFATE 220 MG ( 50 ) CAPSULE PO SCH (09:05)
[2021-08-02] MEDS: ASCORBIC ACID 500 MG TABLET PO SCH (09:05)
[2021-08-02] MEDS: DOCUSATE SODIUM SUGAR FREE 100MG/10ML UDC NG SCH (09:05)
[2021-08-02] MEDS: PREDNISONE 10MG TABLET PO SCH (09:06)
[2021-08-02] MEDS: SODIUM CHLORIDE 0.9% 1,000 ML IV SCH ×3 (09:06→21:47)
[2021-08-02] MEDS: SENNOSIDES 8.6MG TABLET NG SCH (21:43)
[2021-08-03] VITALS (12 sets, daily range): BP systolic 103–124; BP diastolic 60–80
[2021-08-03] MEDS: IPRATROPIUM/ALBUTEROL 0.5-3(2.5)MG/3ML NEB HHN SCH ×6 (00:16→20:25)
[2021-08-03] MEDS: MIDODRINE HCL 5MG TABLET PO SCH ×3 (06:05→22:41)
[2021-08-03] MEDS: LACTULOSE 20G/30ML UDC PO SCH ×3 (06:06→22:40)
[2021-08-03 06:52] LABS: CHLORIDE 106 mEq/L (98-107)
[2021-08-03 07:08] LABS: HEMATOCRIT. 27.2 % (42.0-52.0); HEMOGLOBIN. 8.9 g/dL (14.0-18.0); MEAN CORPUSCULAR HEMOGLOBIN 26.9 pg (28.0-32.0); MEAN CORPUSCULAR VOLUME 81.9 fL (80.0-94.0); MEAN PLATELET VOLUME 7.4 fl (7.4-10.4); PLATELET 378 x1000/uL (130-400); RED BLOOD CELL COUNT 3.32 mill/uL (4.7-6.1); RED CELL DISTRIBUTION WIDTH 22.3 % (11.6-14.6)
[2021-08-03] MEDS: SODIUM CHLORIDE 0.9% 1,000 ML IV SCH (08:59)
[2021-08-03] MEDS: PREDNISONE 10MG TABLET PO SCH (08:59)
[2021-08-03] MEDS: BISACODYL 10MG SUPP PR SCH (08:59)
[2021-08-03] MEDS: ZINC SULFATE 220 MG ( 50 ) CAPSULE PO SCH (08:59)
[2021-08-03] MEDS: ASCORBIC ACID 500 MG TABLET PO SCH (08:59)
[2021-08-03] MEDS: DOCUSATE SODIUM SUGAR FREE 100MG/10ML UDC NG SCH (09:00)
[2021-08-03] MEDS: MUPIROCIN 2% OINT 22GM TOP SCH ×2 (09:00→20:15)
[2021-08-03] MEDS: ACETYLCYSTEINE 100MG/ML 10% VIAL 4ML INH SCH ×3 (09:05→20:25)
[2021-08-03 10:07] LABS: BG BASE EXCESS 6.8 mmol/L (-2.0-2.0); BG CARBOXYHEMOGLOBIN 0.2 % (0.5-1.5); BG DEOXYHEMOGLOBIN 1.9 % (0.0-5.0); BG FRACTION INSPIRED OXYGEN 40; BG HCO3 ACT 31.7 mmol/L (22.0-26.0); BG METHEMOGLOBIN 0.1 % (0.0-1.5); BG OXYGEN SATURATION 98.1 % (92.0-98.5); BG OXYHEMOGLOBIN 97.8 % (94.0-97.0); BG PCO2 47.1 mmHg (35.0-45.0); BG PH 7.446 (7.350-7.450); BG PO2 109.9 mmHg (75.0-100.0); BG SAMPLE SITE RIGHT RADIAL; BG TOTAL HEMOGLOBIN 9.9 g/dL (12.0-18.0); BG TOTAL RESPIRATORY RATE 16 b/min; BG VENT MODE VENT - AC
[2021-08-03 10:17] LABS: PLATELET ESTIMATE NORMAL
[2021-08-03] MEDS: FAMOTIDINE 20MG TABLET PO SCH (20:15)
[2021-08-03] MEDS: SENNOSIDES 8.6MG TABLET NG SCH (20:15)
[2021-08-04] VITALS (12 sets, daily range): BP systolic 96–125; BP diastolic 52–73
[2021-08-04] MEDS: IPRATROPIUM/ALBUTEROL 0.5-3(2.5)MG/3ML NEB HHN SCH ×7 (00:23→23:47)
[2021-08-04] MEDS: LACTULOSE 20G/30ML UDC PO SCH ×3 (04:53→21:17)
[2021-08-04] MEDS: MIDODRINE HCL 5MG TABLET PO SCH ×3 (04:54→21:16)
[2021-08-04] MEDS: ACETYLCYSTEINE 100MG/ML 10% VIAL 4ML INH SCH ×3 (08:41→23:47)
[2021-08-04] MEDS: DOCUSATE SODIUM SUGAR FREE 100MG/10ML UDC NG SCH (09:01)
[2021-08-04] MEDS: ZINC SULFATE 220 MG ( 50 ) CAPSULE PO SCH (09:02)
[2021-08-04] MEDS: POTASSIUM CHLORIDE 20MEQ/PACKET GT SCH (09:02)
[2021-08-04] MEDS: ASCORBIC ACID 500 MG TABLET PO SCH (09:02)
[2021-08-04] MEDS: PREDNISONE 10MG TABLET PO SCH (09:02)
[2021-08-04] MEDS: MUPIROCIN 2% OINT 22GM TOP SCH ×2 (09:03→21:17)
[2021-08-04] MEDS: BISACODYL 10MG SUPP PR SCH (09:03)
[2021-08-04] MEDS: SENNOSIDES 8.6MG TABLET NG SCH (21:16)
[2021-08-04] MEDS: FAMOTIDINE 20MG TABLET PO SCH (21:16)
[2021-08-05] VITALS (12 sets, daily range): BP systolic 104–128; BP diastolic 64–80
[2021-08-05] MEDS: IPRATROPIUM/ALBUTEROL 0.5-3(2.5)MG/3ML NEB HHN SCH ×5 (03:41→20:49)
[2021-08-05] MEDS: MIDODRINE HCL 5MG TABLET PO SCH ×3 (05:20→21:38)
[2021-08-05] MEDS: LACTULOSE 20G/30ML UDC PO SCH ×3 (05:20→21:38)
[2021-08-05 06:46] LABS: BASOPHILS % 0.4 % (0.0-2.0); EOSINOPHILS % 1.5 % (0.0-5.0); HEMATOCRIT. 27.2 % (42.0-52.0); HEMOGLOBIN. 9.1 g/dL (14.0-18.0); LYMPHOCYTES % 20.3 % (20.0-50.0); MEAN CORPUSCULAR HEMOGLOBIN 27.6 pg (28.0-32.0); MEAN CORPUSCULAR VOLUME 82.7 fL (80.0-94.0); MEAN PLATELET VOLUME 7.6 fl (7.4-10.4); MONOCYTES % 4.8 % (2.0-8.0); PLATELET 349 x1000/uL (130-400); RED BLOOD CELL COUNT 3.29 mill/uL (4.7-6.1); RED CELL DISTRIBUTION WIDTH 22.6 % (11.6-14.6)
[2021-08-05 06:52] LABS: CHLORIDE 102 mEq/L (98-107)
[2021-08-05] MEDS: ACETYLCYSTEINE 100MG/ML 10% VIAL 4ML INH SCH ×2 (08:02→15:57)
[2021-08-05] MEDS: BISACODYL 10MG SUPP PR SCH (08:17)
[2021-08-05] MEDS: POTASSIUM CHLORIDE 20MEQ/PACKET GT SCH (08:17)
[2021-08-05] MEDS: ASCORBIC ACID 500 MG TABLET PO SCH (08:17)
[2021-08-05] MEDS: ACETAMINOPHEN 650MG/20.3ML UDC PO PRN (08:17)
[2021-08-05] MEDS: DOCUSATE SODIUM SUGAR FREE 100MG/10ML UDC NG SCH (08:17)
[2021-08-05] MEDS: ZINC SULFATE 220 MG ( 50 ) CAPSULE PO SCH (08:17)
[2021-08-05] MEDS: PREDNISONE 5MG TABLET PO SCH (08:17)
[2021-08-05] MEDS: MUPIROCIN 2% OINT 22GM TOP SCH ×2 (08:24→21:42)
[2021-08-05] MEDS: SENNOSIDES 8.6MG TABLET NG SCH (21:38)
[2021-08-05] MEDS: FAMOTIDINE 20MG TABLET PO SCH (21:38)
[2021-08-06] VITALS (12 sets, daily range): BP systolic 105–151; BP diastolic 65–107
[2021-08-06] MEDS: IPRATROPIUM/ALBUTEROL 0.5-3(2.5)MG/3ML NEB HHN SCH ×6 (00:30→20:00)
[2021-08-06] MEDS: LACTULOSE 20G/30ML UDC PO SCH ×3 (05:13→21:22)
[2021-08-06] MEDS: MIDODRINE HCL 5MG TABLET PO SCH ×3 (05:13→21:22)
[2021-08-06] MEDS: ACETAMINOPHEN 650MG/20.3ML UDC PO PRN (05:13)
[2021-08-06] MEDS: BISACODYL 10MG SUPP PR SCH (09:00)
[2021-08-06] MEDS: DOCUSATE SODIUM SUGAR FREE 100MG/10ML UDC NG SCH (09:00)
[2021-08-06] MEDS: POTASSIUM CHLORIDE 20MEQ/PACKET GT SCH (09:27)
[2021-08-06] MEDS: ZINC SULFATE 220 MG ( 50 ) CAPSULE PO SCH (09:27)
[2021-08-06] MEDS: PREDNISONE 5MG TABLET PO SCH (09:27)
[2021-08-06] MEDS: ASCORBIC ACID 500 MG TABLET PO SCH (09:28)
[2021-08-06] MEDS: MUPIROCIN 2% OINT 22GM TOP SCH ×2 (09:51→21:22)
[2021-08-06] MEDS: SENNOSIDES 8.6MG TABLET NG SCH (21:22)
[2021-08-06] MEDS: FAMOTIDINE 20MG TABLET PO SCH (21:22)
[2021-08-07] VITALS (12 sets, daily range): BP systolic 110–139; BP diastolic 53–80
[2021-08-07] MEDS: IPRATROPIUM/ALBUTEROL 0.5-3(2.5)MG/3ML NEB HHN SCH ×6 (00:47→21:13)
[2021-08-07] MEDS: MIDODRINE HCL 5MG TABLET PO SCH ×3 (06:55→21:17)
[2021-08-07] MEDS: LACTULOSE 20G/30ML UDC PO SCH ×3 (06:55→21:17)
[2021-08-07 06:58] LABS: BASOPHILS % 0.4 % (0.0-2.0); EOSINOPHILS % 0.7 % (0.0-5.0); HEMATOCRIT. 32.4 % (42.0-52.0); HEMOGLOBIN. 10.6 g/dL (14.0-18.0); LYMPHOCYTES % 24.7 % (20.0-50.0); MEAN CORPUSCULAR HEMOGLOBIN 27.1 pg (28.0-32.0); MEAN CORPUSCULAR VOLUME 83.2 fL (80.0-94.0); MEAN PLATELET VOLUME 8.3 fl (7.4-10.4); MONOCYTES % 4.9 % (2.0-8.0); NEUTROPHILS % 69.3 % (40.0-76.0); PLATELET 359 x1000/uL (130-400); RED BLOOD CELL COUNT 3.89 mill/uL (4.7-6.1); RED CELL DISTRIBUTION WIDTH 22.1 % (11.6-14.6)
[2021-08-07 07:14] LABS: CHLORIDE 100 mEq/L (98-107)
[2021-08-07] MEDS: DOCUSATE SODIUM SUGAR FREE 100MG/10ML UDC NG SCH (09:01)
[2021-08-07] MEDS: POTASSIUM CHLORIDE 20MEQ/PACKET GT SCH (09:01)
[2021-08-07] MEDS: PREDNISONE 5MG TABLET PO SCH (09:01)
[2021-08-07] MEDS: MUPIROCIN 2% OINT 22GM TOP SCH ×2 (09:01→21:17)
[2021-08-07] MEDS: BISACODYL 10MG SUPP PR SCH (09:01)
[2021-08-07] MEDS: FAMOTIDINE 20MG TABLET PO SCH (21:17)
[2021-08-07] MEDS: SENNOSIDES 8.6MG TABLET NG SCH (21:17)
[2021-08-08] VITALS (12 sets, daily range): BP systolic 98–143; BP diastolic 65–90
[2021-08-08] MEDS: IPRATROPIUM/ALBUTEROL 0.5-3(2.5)MG/3ML NEB HHN SCH ×6 (00:45→20:12)
[2021-08-08] MEDS: LACTULOSE 20G/30ML UDC PO SCH ×3 (06:05→21:12)
[2021-08-08] MEDS: MIDODRINE HCL 5MG TABLET PO SCH ×3 (06:06→21:12)
[2021-08-08] MEDS: POTASSIUM CHLORIDE 20MEQ/PACKET GT SCH (09:16)
[2021-08-08] MEDS: DOCUSATE SODIUM SUGAR FREE 100MG/10ML UDC NG SCH (09:18)
[2021-08-08] MEDS: PREDNISONE 5MG TABLET PO SCH (09:18)
[2021-08-08] MEDS: BISACODYL 10MG SUPP PR SCH (09:18)
[2021-08-08] MEDS: MUPIROCIN 2% OINT 22GM TOP SCH ×2 (09:20→21:12)
[2021-08-08] MEDS: METOCLOPRAMIDE HCL 10MG/2ML VIAL IV SCH ×2 (18:05→23:35)
[2021-08-08] MEDS: SENNOSIDES 8.6MG TABLET NG SCH (21:11)
[2021-08-08] MEDS: FAMOTIDINE 20MG TABLET PO SCH (21:12)
[2021-08-09] VITALS (12 sets, daily range): BP systolic 101–124; BP diastolic 65–83
[2021-08-09] MEDS: IPRATROPIUM/ALBUTEROL 0.5-3(2.5)MG/3ML NEB HHN SCH ×6 (00:02→20:07)
[2021-08-09] MEDS: METOCLOPRAMIDE HCL 10MG/2ML VIAL IV SCH ×2 (05:41→12:38)
[2021-08-09] MEDS: LACTULOSE 20G/30ML UDC PO SCH ×3 (05:41→21:14)
[2021-08-09] MEDS: MIDODRINE HCL 5MG TABLET PO SCH ×3 (05:41→21:15)
[2021-08-09 05:46] LABS: BASOPHILS % 0.4 % (0.0-2.0); HEMATOCRIT. 32.8 % (42.0-52.0); HEMOGLOBIN. 10.6 g/dL (14.0-18.0); LYMPHOCYTES % 18.3 % (20.0-50.0); MEAN CORPUSCULAR VOLUME 83.9 fL (80.0-94.0); MONOCYTES % 8.2 % (2.0-8.0); NEUTROPHILS % 73.1 % (40.0-76.0); PLATELET 315 x1000/uL (130-400); RED BLOOD CELL COUNT 3.91 mill/uL (4.7-6.1); RED CELL DISTRIBUTION WIDTH 22.4 % (11.6-14.6)
[2021-08-09 05:53] LABS: CHLORIDE 99 mEq/L (98-107)
[2021-08-09] MEDS: BISACODYL 10MG SUPP PR SCH (09:04)
[2021-08-09] MEDS: POTASSIUM CHLORIDE 20MEQ/PACKET GT SCH (09:04)
[2021-08-09] MEDS: DOCUSATE SODIUM SUGAR FREE 100MG/10ML UDC NG SCH (09:05)
[2021-08-09] MEDS: ACETAMINOPHEN 650MG/20.3ML UDC PO PRN ×2 (09:05→20:41)
[2021-08-09] MEDS: MUPIROCIN 2% OINT 22GM TOP SCH ×2 (12:38→20:35)
[2021-08-09] MEDS: FAMOTIDINE 20MG TABLET PO SCH (20:34)
[2021-08-10] VITALS (12 sets, daily range): BP systolic 99–116; BP diastolic 59–71
[2021-08-10] MEDS: IPRATROPIUM/ALBUTEROL 0.5-3(2.5)MG/3ML NEB HHN SCH ×7 (00:19→23:38)
[2021-08-10 06:25] LABS: BASOPHILS % 0.2 % (0.0-2.0); EOSINOPHILS % 0.4 % (0.0-5.0); HEMATOCRIT. 31.2 % (42.0-52.0); HEMOGLOBIN. 10.1 g/dL (14.0-18.0); MEAN CORPUSCULAR HEMOGLOBIN 27.5 pg (28.0-32.0); MEAN CORPUSCULAR VOLUME 85.1 fL (80.0-94.0); MEAN PLATELET VOLUME 8.1 fl (7.4-10.4); MONOCYTES % 7.2 % (2.0-8.0); NEUTROPHILS % 54.2 % (40.0-76.0); PLATELET 253 x1000/uL (130-400); RED BLOOD CELL COUNT 3.67 mill/uL (4.7-6.1); RED CELL DISTRIBUTION WIDTH 21.6 % (11.6-14.6)
[2021-08-10] MEDS: ACETAMINOPHEN 650MG/20.3ML UDC PO PRN ×3 (06:42→23:59)
[2021-08-10] MEDS: LACTULOSE 20G/30ML UDC PO SCH (06:42)
[2021-08-10] MEDS: MIDODRINE HCL 5MG TABLET PO SCH ×3 (06:43→21:22)
[2021-08-10 08:04] LABS: CHLORIDE 101 mEq/L (98-107)
[2021-08-10] MEDS: BISACODYL 10MG SUPP PR SCH (09:00)
[2021-08-10] MEDS: MUPIROCIN 2% OINT 22GM TOP SCH ×2 (10:31→21:23)
[2021-08-10] MEDS: POTASSIUM CHLORIDE 20MEQ/PACKET GT SCH (10:31)
[2021-08-10] MEDS: FAMOTIDINE 20MG TABLET PO SCH (21:23)
[2021-08-11] VITALS (12 sets, daily range): BP systolic 94–132; BP diastolic 53–79
[2021-08-11] MEDS: IPRATROPIUM/ALBUTEROL 0.5-3(2.5)MG/3ML NEB HHN SCH ×5 (03:52→22:24)
[2021-08-11] MEDS: MIDODRINE HCL 5MG TABLET PO SCH ×3 (05:04→21:52)
[2021-08-11] MEDS: BISACODYL 10MG SUPP PR SCH (09:00)
[2021-08-11] MEDS: POTASSIUM CHLORIDE 20MEQ/PACKET GT SCH (10:08)
[2021-08-11] MEDS: MUPIROCIN 2% OINT 22GM TOP SCH ×2 (10:09→20:09)
[2021-08-11] MEDS: FAMOTIDINE 20MG TABLET PO SCH (20:01)
[2021-08-12] VITALS (13 sets, daily range): BP systolic 106–136; BP diastolic 62–92
[2021-08-12] MEDS: IPRATROPIUM/ALBUTEROL 0.5-3(2.5)MG/3ML NEB HHN SCH ×4 (01:38→21:59)
[2021-08-12] MEDS: MIDODRINE HCL 5MG TABLET PO SCH ×3 (05:00→21:21)
[2021-08-12] MEDS: MUPIROCIN 2% OINT 22GM TOP SCH ×2 (08:28→20:19)
[2021-08-12] MEDS: POTASSIUM CHLORIDE 20MEQ/PACKET GT SCH (08:28)
[2021-08-12] MEDS: FAMOTIDINE 20MG TABLET PO SCH (20:18)
[2021-08-13] VITALS (14 sets, daily range): BP systolic 105–160; BP diastolic 66–90
[2021-08-13] MEDS: IPRATROPIUM/ALBUTEROL 0.5-3(2.5)MG/3ML NEB HHN SCH ×4 (02:11→20:27)
[2021-08-13] MEDS: MIDODRINE HCL 5MG TABLET PO SCH ×3 (06:33→22:00)
[2021-08-13] MEDS: MUPIROCIN 2% OINT 22GM TOP SCH ×2 (08:49→22:00)
[2021-08-13 09:03] LABS: BG BASE EXCESS 4.1 mmol/L (-2.0-2.0); BG CARBOXYHEMOGLOBIN 0.3 % (0.5-1.5); BG DEOXYHEMOGLOBIN 2.3 % (0.0-5.0); BG FRACTION INSPIRED OXYGEN 40; BG HCO3 ACT 28.2 mmol/L (22.0-26.0); BG METHEMOGLOBIN 0.1 % (0.0-1.5); BG OXYGEN SATURATION 97.7 % (92.0-98.5); BG OXYHEMOGLOBIN 97.3 % (94.0-97.0); BG PCO2 40.8 mmHg (35.0-45.0); BG PH 7.458 (7.350-7.450); BG TOTAL HEMOGLOBIN 10.1 g/dL (12.0-18.0); BG VENT MODE VENT - CPAP
[2021-08-13 10:30] LABS: BASOPHILS % 0.4 % (0.0-2.0); EOSINOPHILS % 2.4 % (0.0-5.0); HEMATOCRIT. 28.8 % (42.0-52.0); HEMOGLOBIN. 9.5 g/dL (14.0-18.0); LYMPHOCYTES % 21.9 % (20.0-50.0); MEAN CORPUSCULAR VOLUME 84.6 fL (80.0-94.0); MEAN PLATELET VOLUME 7.9 fl (7.4-10.4); MONOCYTES % 8.9 % (2.0-8.0); NEUTROPHILS % 66.4 % (40.0-76.0); PLATELET 274 x1000/uL (130-400); RED CELL DISTRIBUTION WIDTH 20.5 % (11.6-14.6)
[2021-08-13 10:38] LABS: CHLORIDE 100 mEq/L (98-107)
[2021-08-13] MEDS: POTASSIUM CHLORIDE 20MEQ/PACKET GT SCH (12:14)
[2021-08-13] MEDS ORDERED: BISACODYL 10MG SUPP PR NR ×2 (17:15→19:30)
[2021-08-13] MEDS ORDERED: NA PHOS,M-B/NA PHOS,DI-BA ENEMA 118ML PR NR ×2 (17:30→19:30)
[2021-08-13] MEDS ORDERED: SIMETHICONE 80MG TABLET CHEW PO PRN (18:45)
[2021-08-13 20:53] LABS: BASOPHILS % 0.5 % (0.0-2.0); EOSINOPHILS % 1.4 % (0.0-5.0); HEMATOCRIT. 33.7 % (42.0-52.0); HEMOGLOBIN. 10.7 g/dL (14.0-18.0); LYMPHOCYTES % 30.4 % (20.0-50.0); MEAN CORPUSCULAR VOLUME 85.5 fL (80.0-94.0); MEAN PLATELET VOLUME 9.3 fl (7.4-10.4); MONOCYTES % 8.4 % (2.0-8.0); NEUTROPHILS % 59.3 % (40.0-76.0); PLATELET 261 x1000/uL (130-400); RED BLOOD CELL COUNT 3.94 mill/uL (4.7-6.1); RED CELL DISTRIBUTION WIDTH 20.2 % (11.6-14.6)
[2021-08-13 20:58] LABS: CHLORIDE 99 mEq/L (98-107)
[2021-08-13] MEDS: FAMOTIDINE 20MG TABLET PO SCH (22:00)
[2021-08-14] VITALS (12 sets, daily range): BP systolic 83–116; BP diastolic 55–85
[2021-08-14] MEDS: IPRATROPIUM/ALBUTEROL 0.5-3(2.5)MG/3ML NEB HHN SCH ×4 (02:24→21:46)
[2021-08-14] MEDS: MIDODRINE HCL 5MG TABLET PO SCH ×3 (06:09→21:21)
[2021-08-14] MEDS: POTASSIUM CHLORIDE 20MEQ/PACKET GT SCH (08:30)
[2021-08-14] MEDS: MUPIROCIN 2% OINT 22GM TOP SCH ×2 (08:31→21:21)
[2021-08-14] MEDS ORDERED: IOHEXOL-300 100 ML BOTTLE ONE (11:36)
[2021-08-14] MEDS: DEXT 5%/0.9% NACL 1,000 ML IV SCH ×2 (12:07→21:21)
[2021-08-14] MEDS ORDERED: BISACODYL 10MG SUPP PR NR (14:30)
[2021-08-14] MEDS: MAGNESIUM CITRATE 300ML SOLUTION PO SCH ×2 (16:11→20:08)
[2021-08-14] MEDS: ACETAMINOPHEN 650MG/20.3ML UDC PO PRN (16:12)
[2021-08-14] MEDS: FAMOTIDINE 20MG TABLET PO SCH (21:21)
[2021-08-14] MEDS: SENNOSIDES/DOCUSATE SOD 8.6/50MG TABLET PO SCH (21:21)
[2021-08-15] VITALS (12 sets, daily range): BP systolic 92–116; BP diastolic 49–69
[2021-08-15] MEDS: IPRATROPIUM/ALBUTEROL 0.5-3(2.5)MG/3ML NEB HHN SCH ×4 (03:02→21:18)
[2021-08-15] MEDS: MIDODRINE HCL 5MG TABLET PO SCH ×3 (05:19→21:42)
[2021-08-15] MEDS: DEXT 5%/0.9% NACL 1,000 ML IV SCH ×2 (06:59→17:56)
[2021-08-15] MEDS: POLYETHYLENE GLYCOL 3350 (17GM) 1 DOSE PACK PO SCH (08:18)
[2021-08-15] MEDS: MUPIROCIN 2% OINT 22GM TOP SCH ×2 (08:18→21:43)
[2021-08-15] MEDS: POTASSIUM CHLORIDE 20MEQ/PACKET GT SCH (08:18)
[2021-08-15] MEDS: LACTULOSE 20G/30ML UDC PO PRN (08:19)
[2021-08-15] MEDS: DIGOXIN 500MCG/2ML AMP IV SCH ×2 (16:55→23:30)
[2021-08-15] MEDS: SENNOSIDES/DOCUSATE SOD 8.6/50MG TABLET PO SCH (21:43)
[2021-08-15] MEDS: FAMOTIDINE 20MG TABLET PO SCH (21:43)
[2021-08-16] VITALS (13 sets, daily range): BP systolic 90–107; BP diastolic 48–58
[2021-08-16] MEDS: IPRATROPIUM/ALBUTEROL 0.5-3(2.5)MG/3ML NEB HHN SCH ×4 (00:57→20:40)
[2021-08-16] MEDS: DEXT 5%/0.9% NACL 1,000 ML IV SCH ×3 (03:08→22:28)
[2021-08-16] MEDS: MIDODRINE HCL 5MG TABLET PO SCH ×3 (05:01→21:20)
[2021-08-16 07:54] LABS: CHLORIDE 110 mEq/L (98-107)
[2021-08-16 08:13] LABS: T4 FREE 0.66 ng/dL (0.76-1.46)
[2021-08-16] MEDS: DIGOXIN 500MCG/2ML AMP IV SCH (08:39)
[2021-08-16] MEDS: MUPIROCIN 2% OINT 22GM TOP SCH ×2 (08:40→21:21)
[2021-08-16] MEDS: POTASSIUM CHLORIDE 20MEQ/PACKET GT SCH (08:40)
[2021-08-16] MEDS: POLYETHYLENE GLYCOL 3350 (17GM) 1 DOSE PACK PO SCH (08:52)
[2021-08-16 08:53] LABS: HEMATOCRIT. 26.9 % (42.0-52.0); HEMOGLOBIN. 8.3 g/dL (14.0-18.0); MEAN CORPUSCULAR HEMOGLOBIN 27.5 pg (28.0-32.0); MEAN CORPUSCULAR VOLUME 88.8 fL (80.0-94.0); RED BLOOD CELL COUNT 3.03 mill/uL (4.7-6.1); RED CELL DISTRIBUTION WIDTH 20.2 % (11.6-14.6)
[2021-08-16 10:24] LABS: PLATELET ESTIMATE NORMAL
[2021-08-16] MEDS ORDERED: PIPERACILLIN/TAZ 3.375G PREMIX 50 ML IV SCH (13:30)
[2021-08-16] MEDS: ACETYLCYSTEINE 100MG/ML 10% VIAL 4ML INH SCH (14:00)
[2021-08-16] MEDS: PIPERACILLIN/TAZOBACTAM 3.375G in DEXT 5% WATER 50ML IV SCH ×2 (15:00→21:21)
[2021-08-16 15:37] LABS: CLARITY URINE CLEAR (CLEAR); COLOR URINE DARK YELLOW (YELLOW); KETONES URINE NEGATIVE (NEGATIVE); LEUKOCYTE ESTERASE URINE TRACE (NEGATIVE); NITRITE URINE NEGATIVE (NEGATIVE); OCCULT BLOOD URINE 1+ (NEGATIVE); PROTEIN URINE 2+ (NEGATIVE); SPECIFIC GRAVITY URINE 1.017 (1.005-1.030)
[2021-08-16] MEDS: ACETAMINOPHEN 650MG/20.3ML UDC PO PRN ×2 (18:03→21:20)
[2021-08-16] MEDS: LACTULOSE 20G/30ML UDC PO PRN (18:03)
[2021-08-16] MEDS: FAMOTIDINE 20MG TABLET PO SCH (21:20)
[2021-08-16] MEDS: SENNOSIDES/DOCUSATE SOD 8.6/50MG TABLET PO SCH (21:20)
[2021-08-17] VITALS (11 sets, daily range): BP systolic 82–121; BP diastolic 52–60
[2021-08-17] MEDS: IPRATROPIUM/ALBUTEROL 0.5-3(2.5)MG/3ML NEB HHN SCH ×4 (02:52→21:09)
[2021-08-17] MEDS: ACETYLCYSTEINE 100MG/ML 10% VIAL 4ML INH SCH ×3 (02:52→13:54)
[2021-08-17] MEDS: PIPERACILLIN/TAZOBACTAM 3.375G in DEXT 5% WATER 50ML IV SCH ×3 (05:03→21:13)
[2021-08-17] MEDS: MIDODRINE HCL 5MG TABLET PO SCH ×3 (05:04→21:13)
[2021-08-17] MEDS: POLYETHYLENE GLYCOL 3350 (17GM) 1 DOSE PACK PO SCH (08:49)
[2021-08-17] MEDS: MUPIROCIN 2% OINT 22GM TOP SCH ×2 (08:50→21:14)
[2021-08-17] MEDS: DEXT 5%/0.9% NACL 1,000 ML IV SCH ×2 (08:50→21:48)
[2021-08-17] MEDS: POTASSIUM CHLORIDE 20MEQ/PACKET GT SCH (08:50)
[2021-08-17] MEDS: SENNOSIDES/DOCUSATE SOD 8.6/50MG TABLET PO SCH (21:12)
[2021-08-17] MEDS: FAMOTIDINE 20MG TABLET PO SCH (21:13)
[2021-08-18] VITALS (12 sets, daily range): BP systolic 97–122; BP diastolic 63–77
[2021-08-18] MEDS: ACETYLCYSTEINE 100MG/ML 10% VIAL 4ML INH SCH ×3 (01:23→15:27)
[2021-08-18] MEDS: IPRATROPIUM/ALBUTEROL 0.5-3(2.5)MG/3ML NEB HHN SCH ×4 (01:23→19:44)
[2021-08-18] MEDS: PIPERACILLIN/TAZOBACTAM 3.375G in DEXT 5% WATER 50ML IV SCH (05:20)
[2021-08-18] MEDS: MIDODRINE HCL 5MG TABLET PO SCH ×3 (05:20→21:23)
[2021-08-18] MEDS: DEXT 5%/0.9% NACL 1,000 ML IV SCH ×2 (05:22→14:20)
[2021-08-18] MEDS: POLYETHYLENE GLYCOL 3350 (17GM) 1 DOSE PACK PO SCH (09:06)
[2021-08-18] MEDS: POTASSIUM CHLORIDE 20MEQ/PACKET GT SCH (09:06)
[2021-08-18] MEDS: MUPIROCIN 2% OINT 22GM TOP SCH ×2 (09:06→21:24)
[2021-08-18] MEDS: ACETAMINOPHEN 650MG/20.3ML UDC PO PRN (14:19)
[2021-08-18] MEDS: MEROPENEM 1,000 MG in SODIUM CHLORIDE 0.9% 100 ML IV SCH ×2 (14:51→21:23)
[2021-08-18] MEDS: FAMOTIDINE 20MG TABLET PO SCH (21:22)
[2021-08-18] MEDS: SENNOSIDES/DOCUSATE SOD 8.6/50MG TABLET PO SCH (21:23)
[2021-08-19] VITALS (13 sets, daily range): BP systolic 94–118; BP diastolic 55–70
[2021-08-19] MEDS: DEXT 5%/0.9% NACL 1,000 ML IV SCH ×3 (00:28→21:56)
[2021-08-19 02:04] LABS: BG BASE EXCESS 0.9 mmol/L (-2.0-2.0); BG CARBOXYHEMOGLOBIN 0.3 % (0.5-1.5); BG DEOXYHEMOGLOBIN 28.2 % (0.0-5.0); BG FRACTION INSPIRED OXYGEN 100; BG HCO3 ACT 30.4 mmol/L (22.0-26.0); BG METHEMOGLOBIN 0.2 % (0.0-1.5); BG OXYGEN SATURATION 71.7 % (92.0-98.5); BG OXYHEMOGLOBIN 71.3 % (94.0-97.0); BG PCO2 79.3 mmHg (35.0-45.0); BG PH 7.201 (7.350-7.450); BG PO2 41.6 mmHg (75.0-100.0); BG SAMPLE SITE RIGHT RADIAL; BG TOTAL HEMOGLOBIN 10.5 g/dL (12.0-18.0); BG VENT MODE VENT - AC
[2021-08-19] MEDS: ACETYLCYSTEINE 100MG/ML 10% VIAL 4ML INH SCH ×3 (03:48→14:09)
[2021-08-19] MEDS: IPRATROPIUM/ALBUTEROL 0.5-3(2.5)MG/3ML NEB HHN SCH ×4 (03:49→20:29)
[2021-08-19] MEDS: MIDODRINE HCL 5MG TABLET PO SCH ×3 (05:31→21:57)
[2021-08-19] MEDS: MEROPENEM 1,000 MG in SODIUM CHLORIDE 0.9% 100 ML IV SCH ×2 (05:31→15:55)
[2021-08-19 07:23] LABS: HEMATOCRIT. 28.9 % (42.0-52.0); HEMOGLOBIN. 9.1 g/dL (14.0-18.0); MEAN CORPUSCULAR HEMOGLOBIN 27.5 pg (28.0-32.0); MEAN CORPUSCULAR VOLUME 87.8 fL (80.0-94.0); MEAN PLATELET VOLUME 8.5 fl (7.4-10.4); PLATELET 327 x1000/uL (130-400); RED BLOOD CELL COUNT 3.29 mill/uL (4.7-6.1); RED CELL DISTRIBUTION WIDTH 20.5 % (11.6-14.6)
[2021-08-19 07:43] LABS: CHLORIDE 109 mEq/L (98-107)
[2021-08-19] MEDS: POLYETHYLENE GLYCOL 3350 (17GM) 1 DOSE PACK PO SCH (08:45)
[2021-08-19] MEDS: MUPIROCIN 2% OINT 22GM TOP SCH ×2 (08:57→22:26)
[2021-08-19] MEDS: POTASSIUM CHLORIDE 20MEQ/PACKET GT SCH (08:57)
[2021-08-19 11:57] LABS: BG BASE EXCESS 3.3 mmol/L (-2.0-2.0); BG CARBOXYHEMOGLOBIN 0.3 % (0.5-1.5); BG DEOXYHEMOGLOBIN 0.6 % (0.0-5.0); BG FRACTION INSPIRED OXYGEN 100; BG HCO3 ACT 31.7 mmol/L (22.0-26.0); BG METHEMOGLOBIN 0.4 % (0.0-1.5); BG OXYGEN SATURATION 99.4 % (92.0-98.5); BG OXYHEMOGLOBIN 98.7 % (94.0-97.0); BG PCO2 72.9 mmHg (35.0-45.0); BG PH 7.256 (7.350-7.450); BG PO2 200.5 mmHg (75.0-100.0); BG SAMPLE SITE RIGHT RADIAL; BG TOTAL HEMOGLOBIN 9.5 g/dL (12.0-18.0); BG VENT MODE VENT - AC
[2021-08-19] MEDS: LACTULOSE 20G/30ML UDC PO SCH ×2 (15:51→21:57)
[2021-08-19] MEDS: CEFTAZIDIME PENTAHYDRATE 2 G in DEXT 5% WATER 100 ML IV SCH ×2 (15:55→21:56)
[2021-08-19] MEDS: GENTAMICIN 100MG PREMIX 50 ML IV SCH ×2 (15:55→23:46)
[2021-08-19 16:14] LABS: PLATELET ESTIMATE NORMAL
[2021-08-19] MEDS: FAMOTIDINE 20MG TABLET PO SCH (21:57)
[2021-08-19] MEDS: SENNOSIDES/DOCUSATE SOD 8.6/50MG TABLET PO SCH (21:57)
[2021-08-20] VITALS (12 sets, daily range): BP systolic 87–120; BP diastolic 47–68
[2021-08-20] MEDS: ACETYLCYSTEINE 100MG/ML 10% VIAL 4ML INH SCH ×3 (00:40→14:26)
[2021-08-20] MEDS: IPRATROPIUM/ALBUTEROL 0.5-3(2.5)MG/3ML NEB HHN SCH ×4 (00:40→20:16)
[2021-08-20 05:42] LABS: BASOPHILS % 0.1 % (0.0-2.0); EOSINOPHILS % 0.2 % (0.0-5.0); HEMATOCRIT. 25.1 % (42.0-52.0); HEMOGLOBIN. 7.9 g/dL (14.0-18.0); LYMPHOCYTES % 8.8 % (20.0-50.0); MEAN CORPUSCULAR HEMOGLOBIN 27.3 pg (28.0-32.0); MEAN CORPUSCULAR VOLUME 86.8 fL (80.0-94.0); MEAN PLATELET VOLUME 8.4 fl (7.4-10.4); NEUTROPHILS % 85.9 % (40.0-76.0); PLATELET 351 x1000/uL (130-400); RED BLOOD CELL COUNT 2.89 mill/uL (4.7-6.1); RED CELL DISTRIBUTION WIDTH 20.3 % (11.6-14.6)
[2021-08-20] MEDS: LACTULOSE 20G/30ML UDC PO SCH ×3 (05:48→21:15)
[2021-08-20] MEDS: CEFTAZIDIME PENTAHYDRATE 2 G in DEXT 5% WATER 100 ML IV SCH ×3 (05:49→21:15)
[2021-08-20] MEDS: MIDODRINE HCL 5MG TABLET PO SCH ×3 (05:49→21:15)
[2021-08-20 06:20] LABS: CHLORIDE 107 mEq/L (98-107)
[2021-08-20] MEDS ORDERED: POTASSIUM CHLORIDE 20MEQ/PACKET PO NR (07:30)
[2021-08-20] MEDS: DEXT 5%/0.9% NACL 1,000 ML IV SCH ×2 (07:42→17:25)
[2021-08-20] MEDS: POTASSIUM CHLORIDE 20MEQ/PACKET GT SCH (08:31)
[2021-08-20] MEDS: GENTAMICIN 100MG PREMIX 50 ML IV SCH ×2 (08:34→17:15)
[2021-08-20] MEDS: MUPIROCIN 2% OINT 22GM TOP SCH ×2 (08:34→20:39)
[2021-08-20] MEDS: POLYETHYLENE GLYCOL 3350 (17GM) 1 DOSE PACK PO SCH (08:36)
[2021-08-20 08:46] LABS: BG BASE EXCESS 8.4 mmol/L (-2.0-2.0); BG CARBOXYHEMOGLOBIN 0.3 % (0.5-1.5); BG DEOXYHEMOGLOBIN 2.4 % (0.0-5.0); BG FRACTION INSPIRED OXYGEN 80; BG HCO3 ACT 34.5 mmol/L (22.0-26.0); BG METHEMOGLOBIN 0.3 % (0.0-1.5); BG OXYGEN SATURATION 97.6 % (92.0-98.5); BG PH 7.392 (7.350-7.450); BG PO2 92.5 mmHg (75.0-100.0); BG SAMPLE SITE LEFT RADIAL; BG TOTAL HEMOGLOBIN 8.7 g/dL (12.0-18.0); BG VENT MODE VENT - AC
[2021-08-20] MEDS ORDERED: BISACODYL 10MG SUPP PR NR ×2 (09:45→19:30)
[2021-08-20] MEDS ORDERED: NA PHOS,M-B/NA PHOS,DI-BA ENEMA 118ML PR NR ×2 (12:00→22:00)
[2021-08-20] MEDS: ACETAMINOPHEN 650MG/20.3ML UDC PO PRN (18:24)
[2021-08-20] MEDS: FAMOTIDINE 20MG TABLET PO SCH (20:39)
[2021-08-20] MEDS: SENNOSIDES/DOCUSATE SOD 8.6/50MG TABLET PO SCH (20:39)
[2021-08-21] VITALS (12 sets, daily range): BP systolic 95–109; BP diastolic 55–67
[2021-08-21] MEDS: GENTAMICIN 100MG PREMIX 50 ML IV SCH ×4 (00:03→23:18)
[2021-08-21] MEDS: IPRATROPIUM/ALBUTEROL 0.5-3(2.5)MG/3ML NEB HHN SCH ×5 (00:32→20:27)
[2021-08-21] MEDS: ACETYLCYSTEINE 100MG/ML 10% VIAL 4ML INH SCH ×3 (00:33→16:13)
[2021-08-21] MEDS: DEXT 5%/0.9% NACL 1,000 ML IV SCH ×3 (02:28→23:18)
[2021-08-21 06:16] LABS: EOSINOPHILS % 0.8 % (0.0-5.0); HEMATOCRIT. 22.1 % (42.0-52.0); HEMOGLOBIN. 7.1 g/dL (14.0-18.0); LYMPHOCYTES % 12.1 % (20.0-50.0); MEAN CORPUSCULAR HEMOGLOBIN 27.6 pg (28.0-32.0); MEAN CORPUSCULAR VOLUME 85.8 fL (80.0-94.0); MEAN PLATELET VOLUME 8.4 fl (7.4-10.4); MONOCYTES % 4.4 % (2.0-8.0); NEUTROPHILS % 82.7 % (40.0-76.0); PLATELET 354 x1000/uL (130-400); RED BLOOD CELL COUNT 2.57 mill/uL (4.7-6.1); RED CELL DISTRIBUTION WIDTH 19.7 % (11.6-14.6)
[2021-08-21 06:30] LABS: CHLORIDE 103 mEq/L (98-107)
[2021-08-21] MEDS: MIDODRINE HCL 5MG TABLET PO SCH ×3 (06:30→21:16)
[2021-08-21] MEDS: LACTULOSE 20G/30ML UDC PO SCH ×3 (06:30→21:16)
[2021-08-21] MEDS: CEFTAZIDIME PENTAHYDRATE 2 G in DEXT 5% WATER 100 ML IV SCH ×3 (06:30→21:16)
[2021-08-21] MEDS: POTASSIUM CHLORIDE 20MEQ/PACKET GT SCH (08:17)
[2021-08-21] MEDS: MUPIROCIN 2% OINT 22GM TOP SCH ×2 (08:18→21:17)
[2021-08-21] MEDS: POLYETHYLENE GLYCOL 3350 (17GM) 1 DOSE PACK PO SCH (08:18)
[2021-08-21] MEDS ORDERED: POTASSIUM CHLORIDE 20MEQ/PACKET GT NR (10:00)
[2021-08-21] MEDS ORDERED: BISACODYL 10MG SUPP PR NR (13:00)
[2021-08-21] MEDS ORDERED: SORBITOL 70% SOLN 30ML GT NR (13:00)
[2021-08-21] MEDS: METOCLOPRAMIDE HCL 10MG/2ML VIAL IV SCH ×2 (18:05→23:18)
[2021-08-21] MEDS: FAMOTIDINE 20MG TABLET PO SCH (21:16)
[2021-08-21] MEDS: SENNOSIDES/DOCUSATE SOD 8.6/50MG TABLET PO SCH (21:16)
[2021-08-22] VITALS (17 sets, daily range): BP systolic 83–110; BP diastolic 44–67
[2021-08-22] MEDS: IPRATROPIUM/ALBUTEROL 0.5-3(2.5)MG/3ML NEB HHN SCH ×4 (01:30→20:37)
[2021-08-22] MEDS: METOCLOPRAMIDE HCL 10MG/2ML VIAL IV SCH ×3 (05:56→18:01)
[2021-08-22] MEDS: LACTULOSE 20G/30ML UDC PO SCH ×3 (05:56→20:08)
[2021-08-22] MEDS: CEFTAZIDIME PENTAHYDRATE 2 G in DEXT 5% WATER 100 ML IV SCH ×3 (05:57→20:07)
[2021-08-22] MEDS: MIDODRINE HCL 5MG TABLET PO SCH ×3 (05:57→20:08)
[2021-08-22 06:31] LABS: BASOPHILS % 0.2 % (0.0-2.0); EOSINOPHILS % 2.2 % (0.0-5.0); HEMATOCRIT. 21.8 % (42.0-52.0); MEAN CORPUSCULAR HEMOGLOBIN 27.5 pg (28.0-32.0); MEAN CORPUSCULAR VOLUME 85.8 fL (80.0-94.0); MEAN PLATELET VOLUME 8.5 fl (7.4-10.4); MONOCYTES % 4.6 % (2.0-8.0); PLATELET 414 x1000/uL (130-400); RED BLOOD CELL COUNT 2.54 mill/uL (4.7-6.1); RED CELL DISTRIBUTION WIDTH 19.7 % (11.6-14.6)
[2021-08-22 06:41] LABS: CHLORIDE 100 mEq/L (98-107)
[2021-08-22] MEDS: GENTAMICIN 100MG PREMIX 50 ML IV SCH ×2 (08:15→16:34)
[2021-08-22] MEDS: POTASSIUM CHLORIDE 20MEQ/PACKET GT SCH (08:16)
[2021-08-22] MEDS: POLYETHYLENE GLYCOL 3350 (17GM) 1 DOSE PACK PO SCH (08:16)
[2021-08-22] MEDS: DEXT 5%/0.9% NACL 1,000 ML IV SCH ×2 (08:16→20:29)
[2021-08-22] MEDS: MUPIROCIN 2% OINT 22GM TOP SCH (08:28)
[2021-08-22 09:17] LABS: HEMOGLOBIN 7.5 g/dL (14.0-18.0)
[2021-08-22] MEDS ORDERED: POLYETHYLENE GLYCOL 3350 (17GM) 1 DOSE PACK PO SCH (10:00)
[2021-08-22 12:52] LABS: BG BASE EXCESS 10.9 mmol/L (-2.0-2.0); BG CARBOXYHEMOGLOBIN 0.3 % (0.5-1.5); BG DEOXYHEMOGLOBIN 7.4 % (0.0-5.0); BG FRACTION INSPIRED OXYGEN 65; BG HCO3 ACT 37.1 mmol/L (22.0-26.0); BG METHEMOGLOBIN 0.2 % (0.0-1.5); BG OXYGEN SATURATION 92.6 % (92.0-98.5); BG OXYHEMOGLOBIN 92.1 % (94.0-97.0); BG PCO2 60.8 mmHg (35.0-45.0); BG PH 7.403 (7.350-7.450); BG PO2 67.5 mmHg (75.0-100.0); BG SAMPLE SITE LEFT RADIAL; BG TOTAL HEMOGLOBIN 8.5 g/dL (12.0-18.0); BG VENT MODE VENT - AC
[2021-08-22] MEDS ORDERED: [UNRECOGNIZED DRUG - REMARK] XX SCH (14:30)
[2021-08-22] MEDS: SENNOSIDES/DOCUSATE SOD 8.6/50MG TABLET PO SCH (20:08)
[2021-08-22] MEDS: FAMOTIDINE 20MG TABLET PO SCH (20:09)
[2021-08-23] VITALS (12 sets, daily range): BP systolic 85–109; BP diastolic 49–72
[2021-08-23] MEDS: GENTAMICIN 100MG PREMIX 50 ML IV SCH ×4 (01:01→23:40)
[2021-08-23] MEDS: MUPIROCIN 2% OINT 22GM TOP SCH ×3 (01:02→21:53)
[2021-08-23] MEDS: METOCLOPRAMIDE HCL 10MG/2ML VIAL IV SCH ×5 (01:08→23:40)
[2021-08-23] MEDS: IPRATROPIUM/ALBUTEROL 0.5-3(2.5)MG/3ML NEB HHN SCH ×4 (02:17→19:58)
[2021-08-23] MEDS: DEXT 5%/0.9% NACL 1,000 ML IV SCH ×2 (04:52→17:32)
[2021-08-23] MEDS: MIDODRINE HCL 5MG TABLET PO SCH ×3 (05:22→21:56)
[2021-08-23] MEDS: CEFTAZIDIME PENTAHYDRATE 2 G in DEXT 5% WATER 100 ML IV SCH ×3 (05:23→21:54)
[2021-08-23] MEDS: LACTULOSE 20G/30ML UDC PO SCH ×3 (06:37→21:54)
[2021-08-23 07:59] LABS: BASOPHILS % 0.1 % (0.0-2.0); EOSINOPHILS % 1.3 % (0.0-5.0); HEMATOCRIT. 22.8 % (42.0-52.0); HEMOGLOBIN. 7.5 g/dL (14.0-18.0); LYMPHOCYTES % 13.3 % (20.0-50.0); MEAN CORPUSCULAR HEMOGLOBIN 27.8 pg (28.0-32.0); MEAN CORPUSCULAR VOLUME 84.3 fL (80.0-94.0); MEAN PLATELET VOLUME 8.6 fl (7.4-10.4); MONOCYTES % 2.9 % (2.0-8.0); NEUTROPHILS % 82.4 % (40.0-76.0); PLATELET 475 x1000/uL (130-400); RED BLOOD CELL COUNT 2.71 mill/uL (4.7-6.1); RED CELL DISTRIBUTION WIDTH 19.5 % (11.6-14.6)
[2021-08-23] MEDS: POTASSIUM CHLORIDE 20MEQ/PACKET GT SCH (08:08)
[2021-08-23 08:25] LABS: CHLORIDE 99 mEq/L (98-107)
[2021-08-23] MEDS: POLYETHYLENE GLYCOL 3350 (17GM) 1 DOSE PACK PO SCH (08:26)
[2021-08-23] MEDS: FAMOTIDINE 20MG TABLET PO SCH (21:53)
[2021-08-23] MEDS: SENNOSIDES/DOCUSATE SOD 8.6/50MG TABLET PO SCH (21:53)
[2021-08-24] VITALS (13 sets, daily range): BP systolic 84–114; BP diastolic 50–68
[2021-08-24] MEDS: DEXT 5%/0.9% NACL 1,000 ML IV SCH ×3 (01:19→21:20)
[2021-08-24] MEDS: IPRATROPIUM/ALBUTEROL 0.5-3(2.5)MG/3ML NEB HHN SCH ×4 (01:43→20:19)
[2021-08-24] MEDS: LACTULOSE 20G/30ML UDC PO SCH ×3 (06:00→21:23)
[2021-08-24] MEDS: METOCLOPRAMIDE HCL 10MG/2ML VIAL IV SCH ×3 (06:14→17:54)
[2021-08-24] MEDS: MIDODRINE HCL 5MG TABLET PO SCH ×3 (06:14→21:23)
[2021-08-24] MEDS: CEFTAZIDIME PENTAHYDRATE 2 G in DEXT 5% WATER 100 ML IV SCH ×3 (06:14→21:23)
[2021-08-24 07:35] LABS: BASOPHILS % 0.4 % (0.0-2.0); EOSINOPHILS % 0.7 % (0.0-5.0); HEMATOCRIT. 23.7 % (42.0-52.0); HEMOGLOBIN. 7.6 g/dL (14.0-18.0); MEAN CORPUSCULAR HEMOGLOBIN 27.5 pg (28.0-32.0); MEAN CORPUSCULAR VOLUME 85.3 fL (80.0-94.0); MEAN PLATELET VOLUME 8.9 fl (7.4-10.4); MONOCYTES % 2.7 % (2.0-8.0); NEUTROPHILS % 87.2 % (40.0-76.0); PLATELET 502 x1000/uL (130-400); RED BLOOD CELL COUNT 2.78 mill/uL (4.7-6.1); RED CELL DISTRIBUTION WIDTH 19.9 % (11.6-14.6)
[2021-08-24 07:55] LABS: CHLORIDE 102 mEq/L (98-107)
[2021-08-24 08:26] LABS: GENTAMICIN RANDOM 2.4 ug/mL
[2021-08-24] MEDS: GENTAMICIN 100MG PREMIX 50 ML IV SCH ×2 (08:51→21:21)
[2021-08-24] MEDS: POTASSIUM CHLORIDE 20MEQ/PACKET GT SCH (08:51)
[2021-08-24] MEDS: POLYETHYLENE GLYCOL 3350 (17GM) 1 DOSE PACK PO SCH (08:51)
[2021-08-24] MEDS: MUPIROCIN 2% OINT 22GM TOP SCH ×2 (08:52→21:22)
[2021-08-24] MEDS: SENNOSIDES/DOCUSATE SOD 8.6/50MG TABLET PO SCH (21:22)
[2021-08-24] MEDS: FAMOTIDINE 20MG TABLET PO SCH (21:22)
[2021-08-25] VITALS (13 sets, daily range): BP systolic 86–126; BP diastolic 54–77
[2021-08-25] MEDS: IPRATROPIUM/ALBUTEROL 0.5-3(2.5)MG/3ML NEB HHN SCH ×4 (00:18→21:07)
[2021-08-25] MEDS: METOCLOPRAMIDE HCL 10MG/2ML VIAL IV SCH ×4 (00:25→17:24)
[2021-08-25] MEDS: LACTULOSE 20G/30ML UDC PO SCH ×3 (06:17→23:02)
[2021-08-25] MEDS: MIDODRINE HCL 5MG TABLET PO SCH ×2 (06:17→18:25)
[2021-08-25] MEDS: CEFTAZIDIME PENTAHYDRATE 2 G in DEXT 5% WATER 100 ML IV SCH ×3 (06:19→23:01)
[2021-08-25] MEDS: DEXT 5%/0.9% NACL 1,000 ML IV SCH ×2 (07:25→17:24)
[2021-08-25] MEDS: POLYETHYLENE GLYCOL 3350 (17GM) 1 DOSE PACK PO SCH (08:37)
[2021-08-25] MEDS: GENTAMICIN 100MG PREMIX 50 ML IV SCH ×2 (08:37→23:03)
[2021-08-25] MEDS: POTASSIUM CHLORIDE 20MEQ/PACKET GT SCH (08:38)
[2021-08-25] MEDS: MUPIROCIN 2% OINT 22GM TOP SCH ×2 (08:38→23:03)
[2021-08-25] MEDS: GUAIFENESIN 200MG/10ML SUGAR FREE UDC PO SCH ×2 (14:13→23:03)
[2021-08-25] MEDS: SENNOSIDES/DOCUSATE SOD 8.6/50MG TABLET PO SCH (21:00)
[2021-08-25] MEDS: FAMOTIDINE 20MG TABLET PO SCH (23:01)
[2021-08-26] VITALS (16 sets, daily range): BP systolic 78–119; BP diastolic 48–78
[2021-08-26] MEDS: METOCLOPRAMIDE HCL 10MG/2ML VIAL IV SCH ×5 (01:11→23:39)
[2021-08-26] MEDS: IPRATROPIUM/ALBUTEROL 0.5-3(2.5)MG/3ML NEB HHN SCH ×4 (01:23→21:26)
[2021-08-26] MEDS: DEXT 5%/0.9% NACL 1,000 ML IV SCH ×3 (03:00→22:18)
[2021-08-26] MEDS: GUAIFENESIN 200MG/10ML SUGAR FREE UDC PO SCH ×4 (03:14→20:43)
[2021-08-26] MEDS ORDERED: MIDODRINE HCL 5MG TABLET PO SCH (05:00)
[2021-08-26] MEDS: LACTULOSE 20G/30ML UDC PO SCH ×3 (05:17→22:19)
[2021-08-26 06:05] LABS: BASOPHILS % 0.6 % (0.0-2.0); EOSINOPHILS % 1.3 % (0.0-5.0); HEMATOCRIT. 21.8 % (42.0-52.0); HEMOGLOBIN. 7.2 g/dL (14.0-18.0); LYMPHOCYTES % 11.9 % (20.0-50.0); MEAN CORPUSCULAR HEMOGLOBIN 28.3 pg (28.0-32.0); MEAN CORPUSCULAR VOLUME 85.3 fL (80.0-94.0); MONOCYTES % 3.1 % (2.0-8.0); NEUTROPHILS % 83.1 % (40.0-76.0); PLATELET 501 x1000/uL (130-400); RED BLOOD CELL COUNT 2.56 mill/uL (4.7-6.1); RED CELL DISTRIBUTION WIDTH 20.2 % (11.6-14.6)
[2021-08-26] MEDS: CEFTAZIDIME PENTAHYDRATE 2 G in DEXT 5% WATER 100 ML IV SCH ×3 (06:07→22:18)
[2021-08-26 06:30] LABS: CHLORIDE 103 mEq/L (98-107)
[2021-08-26 06:40] LABS: GENTAMICIN RANDOM 1.5 ug/mL
[2021-08-26] MEDS: POLYETHYLENE GLYCOL 3350 (17GM) 1 DOSE PACK PO SCH (09:11)
[2021-08-26] MEDS: POTASSIUM CHLORIDE 20MEQ/PACKET GT SCH (09:11)
[2021-08-26] MEDS: MIDODRINE HCL 5MG TABLET PO SCH ×3 (09:11→18:15)
[2021-08-26] MEDS: GENTAMICIN 100MG PREMIX 50 ML IV SCH ×2 (09:12→20:48)
[2021-08-26] MEDS: MUPIROCIN 2% OINT 22GM TOP SCH (09:12)
[2021-08-26] MEDS: SENNOSIDES/DOCUSATE SOD 8.6/50MG TABLET PO SCH (20:48)
[2021-08-26] MEDS: FAMOTIDINE 20MG TABLET PO SCH (20:48)
[2021-08-27] VITALS (13 sets, daily range): BP systolic 86–121; BP diastolic 48–76
[2021-08-27] MEDS: IPRATROPIUM/ALBUTEROL 0.5-3(2.5)MG/3ML NEB HHN SCH ×4 (01:21→20:25)
[2021-08-27] MEDS: GUAIFENESIN 200MG/10ML SUGAR FREE UDC PO SCH ×4 (01:57→20:00)
[2021-08-27] MEDS: CEFTAZIDIME PENTAHYDRATE 2 G in DEXT 5% WATER 100 ML IV SCH ×3 (05:03→21:51)
[2021-08-27] MEDS: METOCLOPRAMIDE HCL 10MG/2ML VIAL IV SCH ×3 (05:03→17:40)
[2021-08-27] MEDS: LACTULOSE 20G/30ML UDC PO SCH ×3 (05:03→21:52)
[2021-08-27 05:44] LABS: BASOPHILS % 0.5 % (0.0-2.0); EOSINOPHILS % 1.7 % (0.0-5.0); HEMATOCRIT. 23.2 % (42.0-52.0); HEMOGLOBIN. 7.3 g/dL (14.0-18.0); LYMPHOCYTES % 11.8 % (20.0-50.0); MEAN CORPUSCULAR VOLUME 85.9 fL (80.0-94.0); MEAN PLATELET VOLUME 7.9 fl (7.4-10.4); MONOCYTES % 3.6 % (2.0-8.0); NEUTROPHILS % 82.4 % (40.0-76.0); PLATELET 568 x1000/uL (130-400); RED BLOOD CELL COUNT 2.71 mill/uL (4.7-6.1); RED CELL DISTRIBUTION WIDTH 20.3 % (11.6-14.6)
[2021-08-27 06:10] LABS: CHLORIDE 105 mEq/L (98-107)
[2021-08-27] MEDS: POLYETHYLENE GLYCOL 3350 (17GM) 1 DOSE PACK PO SCH (08:53)
[2021-08-27] MEDS: POTASSIUM CHLORIDE 20MEQ/PACKET GT SCH (08:53)
[2021-08-27] MEDS: GENTAMICIN 100MG PREMIX 50 ML IV SCH ×2 (08:53→20:33)
[2021-08-27] MEDS: MIDODRINE HCL 5MG TABLET PO SCH ×3 (08:54→17:40)
[2021-08-27 09:35] LABS: BG BASE EXCESS 4.7 mmol/L (-2.0-2.0); BG CARBOXYHEMOGLOBIN 0.3 % (0.5-1.5); BG DEOXYHEMOGLOBIN 0.9 % (0.0-5.0); BG FRACTION INSPIRED OXYGEN 40; BG HCO3 ACT 28.7 mmol/L (22.0-26.0); BG METHEMOGLOBIN 0.2 % (0.0-1.5); BG OXYGEN SATURATION 99.1 % (92.0-98.5); BG OXYHEMOGLOBIN 98.6 % (94.0-97.0); BG PCO2 40.5 mmHg (35.0-45.0); BG PH 7.469 (7.350-7.450); BG PO2 148.3 mmHg (75.0-100.0); BG SAMPLE SITE LEFT RADIAL; BG TOTAL HEMOGLOBIN 8.2 g/dL (12.0-18.0); BG VENT MODE VENT - AC
[2021-08-27] MEDS: DEXT 5%/0.9% NACL 1,000 ML IV SCH (09:41)
[2021-08-27] MEDS: SENNOSIDES/DOCUSATE SOD 8.6/50MG TABLET PO SCH (20:33)
[2021-08-27] MEDS: FAMOTIDINE 20MG TABLET PO SCH (20:33)
[2021-08-28] VITALS (12 sets, daily range): BP systolic 87–119; BP diastolic 52–69
[2021-08-28] MEDS: METOCLOPRAMIDE HCL 10MG/2ML VIAL IV SCH ×5 (00:40→23:23)
[2021-08-28] MEDS: DEXT 5%/0.9% NACL 1,000 ML IV SCH ×3 (00:40→15:52)
[2021-08-28] MEDS: IPRATROPIUM/ALBUTEROL 0.5-3(2.5)MG/3ML NEB HHN SCH ×3 (01:56→12:25)
[2021-08-28] MEDS: GUAIFENESIN 200MG/10ML SUGAR FREE UDC PO SCH ×4 (02:24→20:27)
[2021-08-28] MEDS: CEFTAZIDIME PENTAHYDRATE 2 G in DEXT 5% WATER 100 ML IV SCH ×3 (05:37→22:18)
[2021-08-28] MEDS: LACTULOSE 20G/30ML UDC PO SCH ×3 (05:38→22:18)
[2021-08-28] MEDS: POTASSIUM CHLORIDE 20MEQ/PACKET GT SCH (08:42)
[2021-08-28] MEDS: GENTAMICIN 100MG PREMIX 50 ML IV SCH ×2 (08:42→20:27)
[2021-08-28] MEDS: MIDODRINE HCL 5MG TABLET PO SCH ×3 (08:43→17:37)
[2021-08-28] MEDS: POLYETHYLENE GLYCOL 3350 (17GM) 1 DOSE PACK PO SCH (09:00)
[2021-08-28 12:44] LABS: BG CARBOXYHEMOGLOBIN 0.3 % (0.5-1.5); BG DEOXYHEMOGLOBIN 2.5 % (0.0-5.0); BG HCO3 ACT 28.5 mmol/L (22.0-26.0); BG METHEMOGLOBIN 0.3 % (0.0-1.5); BG OXYGEN SATURATION 97.5 % (92.0-98.5); BG OXYHEMOGLOBIN 96.9 % (94.0-97.0); BG PCO2 37.5 mmHg (35.0-45.0); BG PH 7.498 (7.350-7.450); BG PO2 100.5 mmHg (75.0-100.0); BG SAMPLE SITE RIGHT RADIAL; BG TOTAL HEMOGLOBIN 10.4 g/dL (12.0-18.0); BG VENT MODE VENT - AC
[2021-08-28] MEDS: FAMOTIDINE 20MG TABLET PO SCH (20:27)
[2021-08-28] MEDS: SENNOSIDES/DOCUSATE SOD 8.6/50MG TABLET PO SCH (20:28)
[2021-08-29] VITALS: BP 95/57
[2021-08-29] MEDS: GUAIFENESIN 200MG/10ML SUGAR FREE UDC PO SCH ×4 (01:26→20:09)
[2021-08-29 02:18] VITALS: BP 97/60
[2021-08-29 04:00] VITALS: BP 96/59
[2021-08-29] MEDS: DEXT 5%/0.9% NACL 1,000 ML IV SCH ×2 (04:23→11:18)
[2021-08-29] MEDS: METOCLOPRAMIDE HCL 10MG/2ML VIAL IV SCH ×4 (05:05→23:39)
[2021-08-29] MEDS: LACTULOSE 20G/30ML UDC PO SCH ×3 (05:05→21:23)
[2021-08-29] MEDS: CEFTAZIDIME PENTAHYDRATE 2 G in DEXT 5% WATER 100 ML IV SCH ×3 (05:45→21:23)
[2021-08-29 06:43] VITALS: BP 97/58
[2021-08-29] MEDS: POTASSIUM CHLORIDE 20MEQ/PACKET GT SCH (08:48)
[2021-08-29] MEDS: POLYETHYLENE GLYCOL 3350 (17GM) 1 DOSE PACK PO SCH (08:48)
[2021-08-29] MEDS: MIDODRINE HCL 5MG TABLET PO SCH ×3 (08:49→17:09)
[2021-08-29] MEDS: GENTAMICIN 100MG PREMIX 50 ML IV SCH ×2 (11:12→20:09)
[2021-08-29] MEDS: FAMOTIDINE 20MG TABLET PO SCH (20:09)
[2021-08-29] MEDS: SENNOSIDES/DOCUSATE SOD 8.6/50MG TABLET PO SCH (20:09)
[2021-08-30] VITALS (7 sets, daily range): BP systolic 112–129; BP diastolic 55–76
[2021-08-30] MEDS: GUAIFENESIN 200MG/10ML SUGAR FREE UDC PO SCH ×4 (01:06→20:43)
[2021-08-30] MEDS: LACTULOSE 20G/30ML UDC PO SCH ×3 (05:28→20:42)
[2021-08-30] MEDS: METOCLOPRAMIDE HCL 10MG/2ML VIAL IV SCH ×4 (05:28→23:16)
[2021-08-30] MEDS: DEXT 5%/0.9% NACL 1,000 ML IV SCH ×3 (05:29→19:13)
[2021-08-30] MEDS: CEFTAZIDIME PENTAHYDRATE 2 G in DEXT 5% WATER 100 ML IV SCH ×3 (05:29→20:42)
[2021-08-30] MEDS: MIDODRINE HCL 5MG TABLET PO SCH ×3 (09:03→17:01)
[2021-08-30] MEDS: POTASSIUM CHLORIDE 20MEQ/PACKET GT SCH (09:03)
[2021-08-30] MEDS: POLYETHYLENE GLYCOL 3350 (17GM) 1 DOSE PACK PO SCH (09:03)
[2021-08-30] MEDS: GENTAMICIN 100MG PREMIX 50 ML IV SCH ×2 (09:04→20:44)
[2021-08-30] MEDS: SENNOSIDES/DOCUSATE SOD 8.6/50MG TABLET PO SCH (20:43)
[2021-08-30] MEDS: FAMOTIDINE 20MG TABLET PO SCH (20:50)
[2021-08-31] VITALS (13 sets, daily range): BP systolic 97–133; BP diastolic 57–75
[2021-08-31] MEDS: GUAIFENESIN 200MG/10ML SUGAR FREE UDC PO SCH ×4 (01:23→21:09)
[2021-08-31] MEDS: DEXT 5%/0.9% NACL 1,000 ML IV SCH ×3 (03:13→21:10)
[2021-08-31] MEDS: LACTULOSE 20G/30ML UDC PO SCH ×3 (05:20→21:10)
[2021-08-31] MEDS: METOCLOPRAMIDE HCL 10MG/2ML VIAL IV SCH ×3 (05:20→17:47)
[2021-08-31] MEDS: POTASSIUM CHLORIDE 20MEQ/PACKET GT SCH (08:38)
[2021-08-31] MEDS: POLYETHYLENE GLYCOL 3350 (17GM) 1 DOSE PACK PO SCH (08:38)
[2021-08-31] MEDS: MIDODRINE HCL 5MG TABLET PO SCH ×3 (08:39→17:48)
[2021-08-31 10:46] LABS: BG BASE EXCESS 9.3 mmol/L (-2.0-2.0); BG CARBOXYHEMOGLOBIN 0.3 % (0.5-1.5); BG FRACTION INSPIRED OXYGEN 35; BG HCO3 ACT 36.6 mmol/L (22.0-26.0); BG METHEMOGLOBIN 0.1 % (0.0-1.5); BG OXYHEMOGLOBIN 96.6 % (94.0-97.0); BG PCO2 65.9 mmHg (35.0-45.0); BG PH 7.362 (7.350-7.450); BG PO2 97.8 mmHg (75.0-100.0); BG SAMPLE SITE RIGHT RADIAL; BG TOTAL HEMOGLOBIN 10.3 g/dL (12.0-18.0); BG VENT MODE VENT - CPAP
[2021-08-31] MEDS: FAMOTIDINE 20MG TABLET PO SCH (21:09)
[2021-08-31] MEDS: SENNOSIDES/DOCUSATE SOD 8.6/50MG TABLET PO SCH (21:09)
[2021-09-01] VITALS (12 sets, daily range): BP systolic 95–120; BP diastolic 57–71
[2021-09-01] MEDS: METOCLOPRAMIDE HCL 10MG/2ML VIAL IV SCH ×5 (00:05→23:22)
[2021-09-01] MEDS: GUAIFENESIN 200MG/10ML SUGAR FREE UDC PO SCH ×4 (01:53→20:01)
[2021-09-01] MEDS: LACTULOSE 20G/30ML UDC PO SCH ×3 (05:04→21:32)
[2021-09-01] MEDS: POTASSIUM CHLORIDE 20MEQ/PACKET GT SCH (09:02)
[2021-09-01] MEDS: MIDODRINE HCL 5MG TABLET PO SCH ×3 (09:02→17:28)
[2021-09-01] MEDS: POLYETHYLENE GLYCOL 3350 (17GM) 1 DOSE PACK PO SCH (09:02)
[2021-09-01] MEDS: DEXT 5%/0.9% NACL 1,000 ML IV SCH ×2 (09:02→20:01)
[2021-09-01] MEDS: SENNOSIDES/DOCUSATE SOD 8.6/50MG TABLET PO SCH (20:04)
[2021-09-02] VITALS (12 sets, daily range): BP systolic 90–133; BP diastolic 54–73
[2021-09-02] MEDS: GUAIFENESIN 200MG/10ML SUGAR FREE UDC PO SCH ×4 (02:20→21:48)
[2021-09-02] MEDS: METOCLOPRAMIDE HCL 10MG/2ML VIAL IV SCH ×3 (05:12→17:01)
[2021-09-02] MEDS: LACTULOSE 20G/30ML UDC PO SCH ×3 (05:12→21:48)
[2021-09-02] MEDS: DEXT 5%/0.9% NACL 1,000 ML IV SCH ×2 (05:12→16:59)
[2021-09-02 06:04] LABS: BASOPHILS % 0.4 % (0.0-2.0); EOSINOPHILS % 8.5 % (0.0-5.0); HEMATOCRIT. 25.9 % (42.0-52.0); HEMOGLOBIN. 8.4 g/dL (14.0-18.0); LYMPHOCYTES % 19.4 % (20.0-50.0); MEAN CORPUSCULAR HEMOGLOBIN 28.4 pg (28.0-32.0); MEAN CORPUSCULAR VOLUME 87.8 fL (80.0-94.0); MEAN PLATELET VOLUME 7.8 fl (7.4-10.4); MONOCYTES % 4.2 % (2.0-8.0); NEUTROPHILS % 67.5 % (40.0-76.0); PLATELET 412 x1000/uL (130-400); RED BLOOD CELL COUNT 2.95 mill/uL (4.7-6.1); RED CELL DISTRIBUTION WIDTH 20.2 % (11.6-14.6)
[2021-09-02 06:23] LABS: CHLORIDE 104 mEq/L (98-107)
[2021-09-02] MEDS: MIDODRINE HCL 5MG TABLET PO SCH ×3 (09:06→17:00)
[2021-09-02] MEDS: POLYETHYLENE GLYCOL 3350 (17GM) 1 DOSE PACK PO SCH (09:06)
[2021-09-02] MEDS: ACETAMINOPHEN 650MG/20.3ML UDC PO PRN ×2 (17:00→19:21)
[2021-09-02] MEDS: SENNOSIDES/DOCUSATE SOD 8.6/50MG TABLET PO SCH (21:49)
[2021-09-03] VITALS (12 sets, daily range): BP systolic 91–131; BP diastolic 56–76
[2021-09-03] MEDS: METOCLOPRAMIDE HCL 10MG/2ML VIAL IV SCH ×5 (00:07→23:17)
[2021-09-03] MEDS: GUAIFENESIN 200MG/10ML SUGAR FREE UDC PO SCH ×4 (01:00→21:13)
[2021-09-03] MEDS: DEXT 5%/0.9% NACL 1,000 ML IV SCH ×3 (02:58→21:14)
[2021-09-03] MEDS: LACTULOSE 20G/30ML UDC PO SCH ×3 (05:04→21:13)
[2021-09-03] MEDS: MIDODRINE HCL 5MG TABLET PO SCH ×3 (08:50→18:38)
[2021-09-03] MEDS: POLYETHYLENE GLYCOL 3350 (17GM) 1 DOSE PACK PO SCH (08:50)
[2021-09-03] MEDS: SENNOSIDES/DOCUSATE SOD 8.6/50MG TABLET PO SCH (21:14)
[2021-09-04] VITALS (12 sets, daily range): BP systolic 100–152; BP diastolic 60–83
[2021-09-04] MEDS: GUAIFENESIN 200MG/10ML SUGAR FREE UDC PO SCH ×4 (01:03→21:25)
[2021-09-04] MEDS: METOCLOPRAMIDE HCL 10MG/2ML VIAL IV SCH ×4 (05:14→23:45)
[2021-09-04] MEDS: LACTULOSE 20G/30ML UDC PO SCH ×3 (05:14→21:25)
[2021-09-04] MEDS: POLYETHYLENE GLYCOL 3350 (17GM) 1 DOSE PACK PO SCH (08:38)
[2021-09-04] MEDS: MIDODRINE HCL 5MG TABLET PO SCH ×3 (08:39→17:01)
[2021-09-04] MEDS: DEXT 5%/0.9% NACL 1,000 ML IV SCH ×2 (08:56→17:52)
[2021-09-04] MEDS: SENNOSIDES/DOCUSATE SOD 8.6/50MG TABLET PO SCH (21:25)
[2021-09-05] VITALS (7 sets, daily range): BP systolic 98–139; BP diastolic 59–83
[2021-09-05] MEDS: GUAIFENESIN 200MG/10ML SUGAR FREE UDC PO SCH ×2 (01:17→08:22)
[2021-09-05] MEDS: DEXT 5%/0.9% NACL 1,000 ML IV SCH (03:59)
[2021-09-05] MEDS: METOCLOPRAMIDE HCL 10MG/2ML VIAL IV SCH (05:00)
[2021-09-05] MEDS: LACTULOSE 20G/30ML UDC PO SCH (05:00)
[2021-09-05 06:28] LABS: HEMATOCRIT. 26.4 % (42.0-52.0); HEMOGLOBIN. 8.5 g/dL (14.0-18.0); MEAN CORPUSCULAR HEMOGLOBIN 28.5 pg (28.0-32.0); MEAN CORPUSCULAR VOLUME 88.7 fL (80.0-94.0); MEAN PLATELET VOLUME 7.9 fl (7.4-10.4); PLATELET 345 x1000/uL (130-400); RED BLOOD CELL COUNT 2.97 mill/uL (4.7-6.1); RED CELL DISTRIBUTION WIDTH 19.7 % (11.6-14.6)
[2021-09-05 06:32] LABS: CHLORIDE 107 mEq/L (98-107)
[2021-09-05] MEDS: MIDODRINE HCL 5MG TABLET PO SCH (08:22)
[2021-09-05] MEDS: POLYETHYLENE GLYCOL 3350 (17GM) 1 DOSE PACK PO SCH (08:22)
[2021-09-05] MEDS ORDERED: METOCLOPRAMIDE 10MG/10 ML UDC GT SCH (12:00)
[2021-09-05 12:53] LABS: PLATELET ESTIMATE NORMAL
[2021-09-14] MEDS ORDERED: SENN8.6T21 PO (16:43)
[2021-09-14] MEDS ORDERED: DOCU-138 PO (16:43)
[2021-09-14] MEDS ORDERED: METO10TA3 PO (16:43)
[2021-09-14] MEDS ORDERED: ZINC50TA69 PO (16:43)
[2021-09-14] MEDS ORDERED: ALBU90AE2 (16:43)
[2021-09-14] MEDS ORDERED: SIME80TA15 PO (16:43)
[2021-09-14] MEDS ORDERED: ACET650T37 PO (16:43)
[2021-09-14] MEDS ORDERED: ATROV3 BOTHNSTRLS (16:43)
[2021-09-14] MEDS ORDERED: POLY119P2 MT (16:43)
[2021-09-14] MEDS ORDERED: BISA5TAB10 PO (16:43)
[2021-09-14] MEDS ORDERED: MULT-1116 MT (16:43)
[2021-09-14] MEDS ORDERED: VIT500LI PO (16:43)
[2021-09-14] MEDS ORDERED: MOM PO (16:43)
[2021-09-14] MEDS ORDERED: LACT10SO30 MT (16:43)
== END 2021-09-05 12:00 | DRG 4 ==
LOC: ER 13:47 → MICUNO 16:16 → ENRESERV 06-30 07:05 → 5EST 07-09 20:58
PROVIDERS: ADMIT Internal Medicine; ATTEND Internal Medicine
PROC: 5A1955Z Respiratory Ventilation, Greater than 96 Consecutive Hours (ICD-10-PCS; principal; 2021-06-28)
PROC: 0BH17EZ Insertion of Endotracheal Airway into Trachea, Via Natural or Artificial Opening (ICD-10-PCS; 2021-06-28)
PROC: B54MZZA Ultrasonography of Right Upper Extremity Veins, Guidance (ICD-10-PCS; 2021-07-05)
PROC: 05HY33Z Insertion of Infusion Device into Upper Vein, Percutaneous Approach (ICD-10-PCS; 2021-07-05)
PROC: 0B110F4 Bypass Trachea to Cutaneous with Tracheostomy Device, Open Approach (ICD-10-PCS; 2021-07-09)
PROC: 0GBJ0ZZ Excision of Thyroid Gland Isthmus, Open Approach (ICD-10-PCS; 2021-07-09)
PROC: 0DH63UZ Insertion of Feeding Device into Stomach, Percutaneous Approach (ICD-10-PCS; 2021-07-14)
PROC: 0DB78ZX Excision of Stomach, Pylorus, Via Natural or Artificial Opening Endoscopic, Diagnostic (ICD-10-PCS; 2021-07-14)
DX: A41.52 Sepsis due to Pseudomonas (principal); G92.8 Other toxic encephalopathy; E43 Unspecified severe protein-calorie malnutrition; J15.1 Pneumonia due to Pseudomonas; E72.20 Disorder of urea cycle metabolism, unspecified; L89.156 Pressure-induced deep tissue damage of sacral region; J15.6 Pneumonia due to other Gram-negative bacteria; E87.2 Acidosis; L89.896 Pressure-induced deep tissue damage of other site; A41.53 Sepsis due to Serratia; L89.159 Pressure ulcer of sacral region, unspecified stage; K76.0 Fatty (change of) liver, not elsewhere classified; A41.51 Sepsis due to Escherichia coli [E. coli]; J96.01 Acute respiratory failure with hypoxia; E87.6 Hypokalemia; T40.601A Poisoning by unspecified narcotics, accidental (unintentional), initial encounter; D64.9 Anemia, unspecified; D75.839 Thrombocytosis, unspecified; E88.09 Other disorders of plasma-protein metabolism, not elsewhere classified; K29.70 Gastritis, unspecified, without bleeding; K40.90 Unilateral inguinal hernia, without obstruction or gangrene, not specified as recurrent; K56.41 Fecal impaction; K56.7 Ileus, unspecified; F16.10 Hallucinogen abuse, uncomplicated; L02.414 Cutaneous abscess of left upper limb; L03.114 Cellulitis of left upper limb; Z20.822 Contact with and (suspected) exposure to COVID-19; L02.413 Cutaneous abscess of right upper limb; T43.641A Poisoning by ecstasy, accidental (unintentional), initial encounter; N39.0 Urinary tract infection, site not specified; R13.12 Dysphagia, oropharyngeal phase; Y92.89 Other specified places as the place of occurrence of the external cause; Z59.00 Homelessness unspecified; Z99.11 Dependence on respirator [ventilator] status; Z79.899 Other long term (current) drug therapy; Z68.21 Body mass index [BMI] 21.0-21.9, adult
CPT/HCPCS: 31500; 36415; 36600; 71045; 74018; 74177; 76700; 76705; 76937; 80048; 80053; 80076; 80170; 80202; 80305; 80320; 81003; 82040; 82105; 82140; 82375; 82805; 82962; 83036; 83735; 84134; 84439; 84443; 84478; 85014; 85018; 85025; 86705; 86709; 86803; 86850; 86900; 86920; 87070; 87077; 87186; 87340; 87426; 88305; 88312; 88313; 90732; 93923; 94002; 94003; 94640; 99291; A6261; C1725; C1769; C1893; C9113; J0360; J0690; J0692; J0696; J0713; J1160; J1200; J1580; J1815; J2185; J2250; J2310; J2405; J2543; J2704; J2765; J2920; J3010; J3370; J3480; J3490; J7030; J7040; J7042; J7050; J7060; J7070; J7512; J7608; Q9967; A4315; G0480

== ENCOUNTER 2021-09-23 10:03 | Inpatient (IN) | payer MEDICAID, OTHER ==
[~2021-09-23] VITALS: Ht 157.5 cm; Wt 49.6 kg
[~2021-09-23 10:03] MED LIST changes: +ACET650T37 PO; +ALBU90AE2; +ATROV3 BOTHNSTRLS; +BISA5TAB10 PO; -CEPH500C2 MT; +DOCU-138 PO; -ETOMIDATE 2MG/ML 10ML VIAL IV ONE; +LACT10SO30 MT; +METO10TA3 PO; +MOM PO; +MULT-1116 MT; +POLY119P2 MT; +SENN8.6T21 PO; +SIME80TA15 PO; +VIT500LI PO; +ZINC50TA69 PO
[2021-09-23] MEDS ORDERED: PIPERACILLIN/TAZ 3.375G PREMIX 50 ML IV ONE (10:30)
[2021-09-23] MEDS ORDERED: VANCOMYCIN 1G PREMIX 200 ML IV ONE (10:30)
[2021-09-23] MEDS ORDERED: SODIUM CHLORIDE 0.9% 1000ML BAG (SEPSIS BOLUS) IV ONE (10:30)
[2021-09-23 11:21] LABS: BG BASE EXCESS 11.4 mmol/L (-2.0-2.0); BG CARBOXYHEMOGLOBIN 0.3 % (0.5-1.5); BG DEOXYHEMOGLOBIN 1.4 % (0.0-5.0); BG FRACTION INSPIRED OXYGEN 100; BG HCO3 ACT 37.6 mmol/L (22.0-26.0); BG METHEMOGLOBIN 0.1 % (0.0-1.5); BG OXYGEN SATURATION 98.6 % (92.0-98.5); BG OXYHEMOGLOBIN 98.2 % (94.0-97.0); BG PCO2 58.9 mmHg (35.0-45.0); BG PH 7.423 (7.350-7.450); BG PO2 139.5 mmHg (75.0-100.0); BG SAMPLE SITE RIGHT RADIAL; BG TOTAL HEMOGLOBIN 10.5 g/dL (12.0-18.0); BG VENT MODE VENT - AC
[2021-09-23 11:22] LABS: HEMATOCRIT. 28.1 % (42.0-52.0); MEAN CORPUSCULAR HEMOGLOBIN 28.7 pg (28.0-32.0); MEAN CORPUSCULAR VOLUME 89.3 fL (80.0-94.0); MEAN PLATELET VOLUME 8.1 fl (7.4-10.4); PLATELET 536 x1000/uL (130-400); RED BLOOD CELL COUNT 3.14 mill/uL (4.7-6.1)
[2021-09-23 11:29] LABS: CHLORIDE 101 mEq/L (98-107)
[2021-09-23 11:41] LABS: PLATELET ESTIMATE INCREASED
[2021-09-23 12:22] LABS: INR 1.1; PROTHROMBIN TIME 11.5 sec (9.6-11.0)
[2021-09-23 12:33] LABS: CLARITY URINE CLOUDY (CLEAR); COLOR URINE YELLOW (YELLOW); KETONES URINE NEGATIVE (NEGATIVE); LEUKOCYTE ESTERASE URINE 1+ (NEGATIVE); NITRITE URINE NEGATIVE (NEGATIVE); OCCULT BLOOD URINE 2+ (NEGATIVE); PROTEIN URINE 1+ (NEGATIVE); SPECIFIC GRAVITY URINE 1.014 (1.005-1.030)
[2021-09-23] MEDS ORDERED: HYDROMORPHONE HCL/PF 1MG/ML CPJ IV PRN (13:00)
[2021-09-23] MEDS ORDERED: DOCUSATE SODIUM 100MG CAPSULE PO PRN (13:00)
[2021-09-23] MEDS ORDERED: ENOXAPARIN 40MG/0.4ML SYR SUBCUT SCH (13:00)
[2021-09-23] MEDS ORDERED: ONDANSETRON HCL 4MG/2ML INJ IV PRN (13:00)
[2021-09-23] MEDS ORDERED: VANCOMYCIN 1GM PMX (XELLIA) 200 ML IV NR (13:30)
[2021-09-23] MEDS: PANTOPRAZOLE SODIUM 40 MG/VIAL IV SCH (13:43)
[2021-09-23] MEDS ORDERED: IPRATROPIUM/ALBUTEROL 0.5-3(2.5)MG/3ML NEB HHN PRN (15:15)
[2021-09-23] MEDS: SODIUM CHLORIDE 0.9% 1,000 ML IV SCH (15:15)
[2021-09-23] MEDS: PIPERACILLIN/TAZOBACTAM 3.375 G in DEXTROSE 5% WATER 50 ML IV SCH ×2 (16:14→22:40)
[2021-09-23] MEDS: SODIUM CHLORIDE 0.45% 1,000 ML IV SCH (16:14)
[2021-09-23] MEDS: IPRATROPIUM/ALBUTEROL 0.5-3(2.5)MG/3ML NEB HHN SCH (20:38)
[2021-09-24] MEDS: IPRATROPIUM/ALBUTEROL 0.5-3(2.5)MG/3ML NEB HHN SCH ×5 (00:44→16:10)
[2021-09-24] MEDS: ACETYLCYSTEINE 100MG/ML 10% VIAL 4ML INH SCH ×3 (00:44→16:10)
[2021-09-24 05:02] LABS: BASOPHILS % 0.5 % (0.0-2.0); EOSINOPHILS % 0.6 % (0.0-5.0); HEMATOCRIT. 23.4 % (42.0-52.0); HEMOGLOBIN. 7.6 g/dL (14.0-18.0); LYMPHOCYTES % 12.4 % (20.0-50.0); MEAN CORPUSCULAR HEMOGLOBIN 29.1 pg (28.0-32.0); MEAN CORPUSCULAR VOLUME 89.8 fL (80.0-94.0); MEAN PLATELET VOLUME 7.8 fl (7.4-10.4); MONOCYTES % 4.7 % (2.0-8.0); NEUTROPHILS % 81.8 % (40.0-76.0); PLATELET 471 x1000/uL (130-400); RED CELL DISTRIBUTION WIDTH 16.9 % (11.6-14.6)
[2021-09-24 05:11] LABS: CHLORIDE 103 mEq/L (98-107)
[2021-09-24] MEDS: PIPERACILLIN/TAZOBACTAM 3.375 G in DEXTROSE 5% WATER 50 ML IV SCH ×2 (07:10→17:02)
[2021-09-24] MEDS: SODIUM CHLORIDE 0.45% 1,000 ML IV SCH (10:02)
[2021-09-24] MEDS ORDERED: POTASSIUM CHLORIDE INJ 40 MEQ in DEXT 5% WATER 250 ML IV ONE (11:00)
[2021-09-24] MEDS ORDERED: FLUCONAZOLE 100MG TABLET PO NR (11:00)
[2021-09-24] MEDS: PANTOPRAZOLE SODIUM 40 MG/VIAL IV SCH (11:00)
[2021-09-24] MEDS: SODIUM CHLORIDE 0.9% 1,000 ML IV SCH (12:49)
[2021-09-24] MEDS: KCL 20MEQ/100ML X 2 FOR TOTAL KCL 40MEQ/200ML IV SCH ×2 (13:22→15:28)
[2021-09-24 14:14] LABS: BG CARBOXYHEMOGLOBIN 0.7 % (0.5-1.5); BG FRACTION INSPIRED OXYGEN 50; BG HCO3 ACT 28.5 mmol/L (22.0-26.0); BG METHEMOGLOBIN 0.2 % (0.0-1.5); BG OXYHEMOGLOBIN 95.1 % (94.0-97.0); BG PH 7.504 (7.350-7.450); BG SAMPLE SITE RIGHT RADIAL; BG VENT MODE VENT - AC
[2021-09-24 22:00] VITALS: BP_SYST 120; BP_SYST 95; BP_DIAS 57; BP_DIAS 69
[2021-09-25] VITALS (10 sets, daily range): BP systolic 100–140; BP diastolic 55–85
[2021-09-25] MEDS: IPRATROPIUM/ALBUTEROL 0.5-3(2.5)MG/3ML NEB HHN SCH ×6 (00:55→20:17)
[2021-09-25] MEDS: PIPERACILLIN/TAZOBACTAM 3.375 G in DEXTROSE 5% WATER 50 ML IV SCH ×2 (01:08→05:49)
[2021-09-25] MEDS: SODIUM CHLORIDE 0.45% 1,000 ML IV SCH (01:23)
[2021-09-25] MEDS: ACETYLCYSTEINE 100MG/ML 10% VIAL 4ML INH SCH (03:41)
[2021-09-25] MEDS: PANTOPRAZOLE SODIUM 40 MG/VIAL IV SCH (10:08)
[2021-09-25 10:27] LABS: BASOPHILS % 0.3 % (0.0-2.0); EOSINOPHILS % 0.5 % (0.0-5.0); HEMATOCRIT. 24.7 % (42.0-52.0); HEMOGLOBIN. 8.1 g/dL (14.0-18.0); LYMPHOCYTES % 12.1 % (20.0-50.0); MEAN CORPUSCULAR HEMOGLOBIN 29.1 pg (28.0-32.0); MEAN CORPUSCULAR VOLUME 88.4 fL (80.0-94.0); NEUTROPHILS % 81.1 % (40.0-76.0); PLATELET 560 x1000/uL (130-400); RED BLOOD CELL COUNT 2.79 mill/uL (4.7-6.1); RED CELL DISTRIBUTION WIDTH 17.1 % (11.6-14.6)
[2021-09-25] MEDS ORDERED: POTASSIUM CHLORIDE 20MEQ TABLET SR PO SCH (10:30)
[2021-09-25 10:32] LABS: CHLORIDE 102 mEq/L (98-107)
[2021-09-25] MEDS ORDERED: HYDROMORPHONE HCL/PF 2MG/ML CPJ IV PRN (10:45)
[2021-09-26] VITALS (11 sets, daily range): BP systolic 88–116; BP diastolic 48–65
[2021-09-26] MEDS: IPRATROPIUM/ALBUTEROL 0.5-3(2.5)MG/3ML NEB HHN SCH ×6 (00:02→20:37)
[2021-09-26] MEDS: ACETYLCYSTEINE 100MG/ML 10% VIAL 4ML INH SCH ×2 (00:02→08:40)
[2021-09-26 07:08] LABS: CHLORIDE 102 mEq/L (98-107)
[2021-09-26 07:14] LABS: BASOPHILS % 0.3 % (0.0-2.0); EOSINOPHILS % 0.4 % (0.0-5.0); HEMOGLOBIN. 7.5 g/dL (14.0-18.0); LYMPHOCYTES % 9.4 % (20.0-50.0); MEAN CORPUSCULAR HEMOGLOBIN 28.4 pg (28.0-32.0); MEAN CORPUSCULAR VOLUME 87.5 fL (80.0-94.0); MEAN PLATELET VOLUME 8.4 fl (7.4-10.4); MONOCYTES % 4.8 % (2.0-8.0); NEUTROPHILS % 85.1 % (40.0-76.0); PLATELET 457 x1000/uL (130-400); RED BLOOD CELL COUNT 2.62 mill/uL (4.7-6.1); RED CELL DISTRIBUTION WIDTH 17.2 % (11.6-14.6)
[2021-09-26] MEDS ORDERED: POTASSIUM CHLORIDE 20MEQ TABLET SR PO SCH (09:00)
[2021-09-26] MEDS ORDERED: CEFTRIAXONE SODIUM 1 G/VIAL IM SCH (09:00)
[2021-09-26] MEDS: PANTOPRAZOLE SODIUM 40 MG/VIAL IV SCH (09:54)
[2021-09-26] MEDS ORDERED: CEFTRIAXONE 1,000 MG in DEXTROSE 5% WATER 50 ML IV SCH ×2 (10:15→13:00)
[2021-09-26] MEDS: POTASSIUM CHLORIDE 20MEQ/PACKET PO NR ×2 (11:21→14:13)
[2021-09-26] MEDS: POTASSIUM CHLORIDE 20MEQ/PACKET PO SCH (11:21)
[2021-09-26] MEDS: CEFEPIME 2,000 MG in DEXT 5% WATER 100 ML IV SCH (14:47)
[2021-09-27] VITALS (12 sets, daily range): BP systolic 93–120; BP diastolic 49–67
[2021-09-27] MEDS: ACETYLCYSTEINE 100MG/ML 10% VIAL 4ML INH SCH ×2 (00:12→13:00)
[2021-09-27] MEDS: IPRATROPIUM/ALBUTEROL 0.5-3(2.5)MG/3ML NEB HHN SCH ×6 (00:12→21:36)
[2021-09-27] MEDS: ACETAMINOPHEN 325MG TABLET PO PRN (00:26)
[2021-09-27] MEDS: CEFEPIME 2,000 MG in DEXT 5% WATER 100 ML IV SCH (05:10)
[2021-09-27 06:35] LABS: BASOPHILS % 0.3 % (0.0-2.0); EOSINOPHILS % 1.4 % (0.0-5.0); HEMATOCRIT. 22.4 % (42.0-52.0); HEMOGLOBIN. 7.2 g/dL (14.0-18.0); MEAN CORPUSCULAR VOLUME 87.7 fL (80.0-94.0); NEUTROPHILS % 75.3 % (40.0-76.0); PLATELET 497 x1000/uL (130-400); RED BLOOD CELL COUNT 2.56 mill/uL (4.7-6.1); RED CELL DISTRIBUTION WIDTH 16.8 % (11.6-14.6)
[2021-09-27 06:46] LABS: CHLORIDE 107 mEq/L (98-107)
[2021-09-27] MEDS: PANTOPRAZOLE SODIUM 40 MG/VIAL IV SCH (08:15)
[2021-09-27] MEDS: POTASSIUM CHLORIDE 20MEQ/PACKET PO SCH (08:15)
[2021-09-27 09:09] LABS: BG BASE EXCESS -0.8 mmol/L (-2.0-2.0); BG CARBOXYHEMOGLOBIN 0.6 % (0.5-1.5); BG DEOXYHEMOGLOBIN 3.8 % (0.0-5.0); BG FRACTION INSPIRED OXYGEN 35; BG HCO3 ACT 21.2 mmol/L (22.0-26.0); BG METHEMOGLOBIN 0.3 % (0.0-1.5); BG OXYGEN SATURATION 96.2 % (92.0-98.5); BG OXYHEMOGLOBIN 95.3 % (94.0-97.0); BG PCO2 25.4 mmHg (35.0-45.0); BG PO2 77.1 mmHg (75.0-100.0); BG SAMPLE SITE RIGHT RADIAL; BG TOTAL HEMOGLOBIN 8.1 g/dL (12.0-18.0); BG VENT MODE VENT - AC
[2021-09-27] MEDS: MIDODRINE HCL 5MG TABLET PO SCH ×2 (12:37→17:33)
[2021-09-27] MEDS: MEROPENEM 1,000 MG in SODIUM CHLORIDE 0.9% 100 ML IV SCH ×2 (14:22→22:13)
[2021-09-28] VITALS (12 sets, daily range): BP systolic 94–121; BP diastolic 47–65
[2021-09-28] MEDS: ACETYLCYSTEINE 100MG/ML 10% VIAL 4ML INH SCH ×4 (01:06→11:54)
[2021-09-28] MEDS: IPRATROPIUM/ALBUTEROL 0.5-3(2.5)MG/3ML NEB HHN SCH ×5 (01:10→21:12)
[2021-09-28] MEDS: MEROPENEM 1,000 MG in SODIUM CHLORIDE 0.9% 100 ML IV SCH ×3 (05:15→21:14)
[2021-09-28] MEDS: POTASSIUM CHLORIDE 20MEQ/PACKET PO SCH (08:11)
[2021-09-28] MEDS: PANTOPRAZOLE SODIUM 40 MG/VIAL IV SCH (08:11)
[2021-09-28] MEDS: MIDODRINE HCL 5MG TABLET PO SCH ×3 (08:12→17:14)
[2021-09-28] MEDS: ACETAMINOPHEN 325MG TABLET PO PRN (12:41)
[2021-09-29] VITALS (12 sets, daily range): BP systolic 94–137; BP diastolic 40–61
[2021-09-29] MEDS: IPRATROPIUM/ALBUTEROL 0.5-3(2.5)MG/3ML NEB HHN SCH ×6 (01:10→21:25)
[2021-09-29] MEDS: MEROPENEM 1,000 MG in SODIUM CHLORIDE 0.9% 100 ML IV SCH ×3 (06:09→21:25)
[2021-09-29 06:47] LABS: BASOPHILS % 0.6 % (0.0-2.0); EOSINOPHILS % 3.4 % (0.0-5.0); HEMOGLOBIN. 7.9 g/dL (14.0-18.0); LYMPHOCYTES % 11.7 % (20.0-50.0); MEAN CORPUSCULAR HEMOGLOBIN 28.3 pg (28.0-32.0); MEAN CORPUSCULAR VOLUME 89.6 fL (80.0-94.0); MEAN PLATELET VOLUME 8.2 fl (7.4-10.4); MONOCYTES % 2.9 % (2.0-8.0); NEUTROPHILS % 81.4 % (40.0-76.0); PLATELET 494 x1000/uL (130-400); RED BLOOD CELL COUNT 2.79 mill/uL (4.7-6.1); RED CELL DISTRIBUTION WIDTH 17.4 % (11.6-14.6)
[2021-09-29 08:18] LABS: CHLORIDE 105 mEq/L (98-107)
[2021-09-29] MEDS: PANTOPRAZOLE SODIUM 40 MG/VIAL IV SCH (08:38)
[2021-09-29] MEDS: POTASSIUM CHLORIDE 20MEQ/PACKET PO SCH (08:38)
[2021-09-29] MEDS: MIDODRINE HCL 5MG TABLET PO SCH ×3 (08:39→17:34)
[2021-09-29 09:11] LABS: BG BASE EXCESS 1.8 mmol/L (-2.0-2.0); BG CARBOXYHEMOGLOBIN 0.2 % (0.5-1.5); BG DEOXYHEMOGLOBIN 1.4 % (0.0-5.0); BG FRACTION INSPIRED OXYGEN 40; BG HCO3 ACT 25.9 mmol/L (22.0-26.0); BG METHEMOGLOBIN 0.3 % (0.0-1.5); BG OXYGEN SATURATION 98.6 % (92.0-98.5); BG OXYHEMOGLOBIN 98.1 % (94.0-97.0); BG PCO2 38.2 mmHg (35.0-45.0); BG PH 7.449 (7.350-7.450); BG PO2 107.3 mmHg (75.0-100.0); BG SAMPLE SITE RIGHT RADIAL; BG TOTAL HEMOGLOBIN 8.2 g/dL (12.0-18.0); BG VENT MODE VENT - AC
[2021-09-30] VITALS (11 sets, daily range): BP systolic 85–125; BP diastolic 49–60
[2021-09-30] MEDS: IPRATROPIUM/ALBUTEROL 0.5-3(2.5)MG/3ML NEB HHN SCH ×7 (01:13→23:43)
[2021-09-30] MEDS: MEROPENEM 1,000 MG in SODIUM CHLORIDE 0.9% 100 ML IV SCH ×3 (05:57→21:08)
[2021-09-30] MEDS: POTASSIUM CHLORIDE 20MEQ/PACKET PO SCH (09:56)
[2021-09-30] MEDS: PANTOPRAZOLE SODIUM 40 MG/VIAL IV SCH (09:56)
[2021-09-30] MEDS: MIDODRINE HCL 5MG TABLET PO SCH ×3 (09:56→17:39)
[2021-10-01] VITALS (8 sets, daily range): BP systolic 87–132; BP diastolic 45–71
[2021-10-01] MEDS: IPRATROPIUM/ALBUTEROL 0.5-3(2.5)MG/3ML NEB HHN SCH ×2 (03:21→08:05)
[2021-10-01] MEDS: MEROPENEM 1,000 MG in SODIUM CHLORIDE 0.9% 100 ML IV SCH (06:04)
[2021-10-01] MEDS: MIDODRINE HCL 5MG TABLET PO SCH (08:05)
[2021-10-01] MEDS: POTASSIUM CHLORIDE 20MEQ/PACKET PO SCH (08:05)
[2021-10-01] MEDS: PANTOPRAZOLE SODIUM 40 MG/VIAL IV SCH (08:05)
== END 2021-10-01 12:25 | DRG 720 ==
LOC: ER 10:03 → MICUSO 12:39 → EDBEDREQSVC 15:16 → 5EST 09-24 22:44
PROVIDERS: ADMIT Hospitalist; ATTEND Hospitalist
PROC: 5A1955Z Respiratory Ventilation, Greater than 96 Consecutive Hours (ICD-10-PCS; principal; 2021-09-23)
PROC: 05HY33Z Insertion of Infusion Device into Upper Vein, Percutaneous Approach (ICD-10-PCS; 2021-09-23)
PROC: B54MZZA Ultrasonography of Right Upper Extremity Veins, Guidance (ICD-10-PCS; 2021-09-23)
DX: A41.9 Sepsis, unspecified organism (principal); J96.21 Acute and chronic respiratory failure with hypoxia; E43 Unspecified severe protein-calorie malnutrition; J44.0 Chronic obstructive pulmonary disease with (acute) lower respiratory infection; G93.40 Encephalopathy, unspecified; J15.1 Pneumonia due to Pseudomonas; I82.623 Acute embolism and thrombosis of deep veins of upper extremity, bilateral; E87.6 Hypokalemia; D63.8 Anemia in other chronic diseases classified elsewhere; N39.0 Urinary tract infection, site not specified; R13.10 Dysphagia, unspecified; Z93.1 Gastrostomy status; Z99.11 Dependence on respirator [ventilator] status; Z20.822 Contact with and (suspected) exposure to COVID-19; Z93.0 Tracheostomy status; Z87.01 Personal history of pneumonia (recurrent); Z68.20 Body mass index [BMI] 20.0-20.9, adult
CPT/HCPCS: 36415; 36600; 71045; 76937; 80053; 81003; 82140; 82375; 82805; 83605; 83735; 83880; 84134; 84145; 84484; 85025; 87070; 87077; 87106; 87186; 87426; 93005; 93970; 94002; 94003; 94640; 99291; C1725; C1893; C9113; J0692; J0696; J1650; J2185; J2543; J3370; J3480; J7030; J7050; J7060; J7608; A4315

== ENCOUNTER 2021-10-03 04:04 | Inpatient (IN) | payer MEDICAID, OTHER ==
[~2021-10-03] VITALS: Ht 167.6 cm; Wt 45.4 kg
[2021-10-03] MEDS ORDERED: SODIUM CHLORIDE 0.9% 1000ML BAG (SEPSIS BOLUS) IV ONE (04:45)
[2021-10-03 05:08] LABS: BG BASE EXCESS 6.1 mmol/L (-2.0-2.0); BG CARBOXYHEMOGLOBIN 0.3 % (0.5-1.5); BG DEOXYHEMOGLOBIN 0.7 % (0.0-5.0); BG FRACTION INSPIRED OXYGEN 100; BG HCO3 ACT 33.2 mmol/L (22.0-26.0); BG METHEMOGLOBIN 0.2 % (0.0-1.5); BG OXYGEN SATURATION 99.3 % (92.0-98.5); BG OXYHEMOGLOBIN 98.8 % (94.0-97.0); BG PCO2 62.5 mmHg (35.0-45.0); BG PH 7.343 (7.350-7.450); BG PO2 180.5 mmHg (75.0-100.0); BG SAMPLE SITE RIGHT RADIAL; BG TOTAL HEMOGLOBIN 10.1 g/dL (12.0-18.0); BG VENT MODE VENT - AC
[2021-10-03 06:06] LABS: CHLORIDE 101 mEq/L (98-107); HEMATOCRIT. 29.9 % (42.0-52.0); HEMOGLOBIN. 9.5 g/dL (14.0-18.0); MEAN CORPUSCULAR HEMOGLOBIN 28.2 pg (28.0-32.0); MEAN CORPUSCULAR VOLUME 88.4 fL (80.0-94.0); MEAN PLATELET VOLUME 7.6 fl (7.4-10.4); PLATELET 510 x1000/uL (130-400); RED BLOOD CELL COUNT 3.38 mill/uL (4.7-6.1); RED CELL DISTRIBUTION WIDTH 16.7 % (11.6-14.6)
[2021-10-03 06:27] LABS: CLARITY URINE CLOUDY (CLEAR); COLOR URINE YELLOW (YELLOW); KETONES URINE NEGATIVE (NEGATIVE); LEUKOCYTE ESTERASE URINE TRACE (NEGATIVE); NITRITE URINE NEGATIVE (NEGATIVE); OCCULT BLOOD URINE TRACE (NEGATIVE); PROTEIN URINE 1+ (NEGATIVE); SPECIFIC GRAVITY URINE 1.013 (1.005-1.030)
[2021-10-03] MEDS ORDERED: CEFEPIME 1,000 MG in DEXTROSE 5% WATER 50 ML IV SCH (08:00)
[2021-10-03] MEDS ORDERED: LIDOCAINE HCL 1% 20ML VIAL (Pyxis) INJ ONE (08:06)
[2021-10-03 08:35] LABS: PLATELET ESTIMATE INCREASED
[2021-10-03] MEDS ORDERED: IPRATROPIUM/ALBUTEROL 0.5-3(2.5)MG/3ML NEB HHN PRN (11:15)
[2021-10-03] MEDS: ACETYLCYSTEINE 100MG/ML 10% VIAL 4ML INH SCH ×2 (13:13→23:38)
[2021-10-03] MEDS: IPRATROPIUM/ALBUTEROL 0.5-3(2.5)MG/3ML NEB HHN SCH ×4 (13:13→23:39)
[2021-10-03 13:57] VITALS: BP 97/63
[2021-10-03 15:00] VITALS: BP 97/51
[2021-10-03 16:00] VITALS: BP 109/70
[2021-10-03 18:00] VITALS: BP 96/61
[2021-10-03 20:00] VITALS: BP 102/62
[2021-10-03] MEDS ORDERED: HYDRALAZINE 20MG/ML VIAL IV PRN (21:00)
[2021-10-03] MEDS ORDERED: HYDROMORPHONE HCL/PF 2MG/ML CPJ IV PRN (21:00)
[2021-10-03] MEDS ORDERED: ONDANSETRON HCL 4MG/2ML INJ IV PRN (21:00)
[2021-10-03] MEDS ORDERED: ACETAMINOPHEN 650MG/20.3ML UDC GT PRN (21:00)
[2021-10-03] MEDS ORDERED: DEXTROSE 50% WATER 50ML SYRINGE IV PRN (21:15)
[2021-10-03] MEDS ORDERED: NALOXONE HCL 0.4MG/ML VIAL IV PRN (21:15)
[2021-10-03] MEDS ORDERED: INSULIN LISPRO 100 UNITS/ML SUBCUT SCH (21:30)
[2021-10-03] MEDS: BLOOD SUGAR DIAGNOSTIC STRIP TEST SCH (21:36)
[2021-10-03 22:00] VITALS: BP 103/67
[2021-10-03] MEDS: PANTOPRAZOLE SODIUM 40 MG/VIAL IV SCH (22:17)
[2021-10-03] MEDS: ENOXAPARIN 30MG/0.3ML SYR SUBCUT SCH (22:17)
[2021-10-04] VITALS (12 sets, daily range): BP systolic 90–128; BP diastolic 54–75
[2021-10-04] MEDS: IPRATROPIUM/ALBUTEROL 0.5-3(2.5)MG/3ML NEB HHN SCH ×4 (03:03→20:20)
[2021-10-04] MEDS: BLOOD SUGAR DIAGNOSTIC STRIP TEST SCH ×4 (07:30→21:00)
[2021-10-04 08:13] LABS: CHLORIDE 104 mEq/L (98-107)
[2021-10-04 08:14] LABS: BASOPHILS % 0.6 % (0.0-2.0); EOSINOPHILS % 0.5 % (0.0-5.0); HEMATOCRIT. 24.4 % (42.0-52.0); LYMPHOCYTES % 15.8 % (20.0-50.0); MEAN CORPUSCULAR HEMOGLOBIN 27.9 pg (28.0-32.0); MEAN CORPUSCULAR VOLUME 87.5 fL (80.0-94.0); MEAN PLATELET VOLUME 7.6 fl (7.4-10.4); MONOCYTES % 2.9 % (2.0-8.0); NEUTROPHILS % 80.2 % (40.0-76.0); PLATELET 408 x1000/uL (130-400); RED BLOOD CELL COUNT 2.79 mill/uL (4.7-6.1)
[2021-10-04 08:20] LABS: HEMOGLOBIN. 7.8 g/dL (14.0-18.0)
[2021-10-04 08:24] LABS: BG BASE EXCESS 4.1 mmol/L (-2.0-2.0); BG CARBOXYHEMOGLOBIN 0.3 % (0.5-1.5); BG DEOXYHEMOGLOBIN 1.8 % (0.0-5.0); BG FRACTION INSPIRED OXYGEN 40; BG HCO3 ACT 27.9 mmol/L (22.0-26.0); BG METHEMOGLOBIN 0.4 % (0.0-1.5); BG OXYGEN SATURATION 98.2 % (92.0-98.5); BG OXYHEMOGLOBIN 97.5 % (94.0-97.0); BG PH 7.483 (7.350-7.450); BG SAMPLE SITE RIGHT BRACHIAL; BG TOTAL HEMOGLOBIN 8.2 g/dL (12.0-18.0); BG VENT MODE VBG - N/A
[2021-10-04] MEDS: ACETYLCYSTEINE 100MG/ML 10% VIAL 4ML INH SCH (08:52)
[2021-10-04] MEDS ORDERED: ENOXAPARIN 40MG/0.4ML SYR SUBCUT SCH (09:00)
[2021-10-04] MEDS ORDERED: CEFEPIME HCL 1000MG/VIAL INJ IM SCH (09:00)
[2021-10-04] MEDS: CEFEPIME 1,000 MG in DEXTROSE 5% WATER 50 ML IV SCH ×2 (09:14→22:36)
[2021-10-04] MEDS: ENOXAPARIN 30MG/0.3ML SYR SUBCUT SCH (22:36)
[2021-10-04] MEDS: PANTOPRAZOLE SODIUM 40 MG/VIAL IV SCH (22:36)
[2021-10-05] VITALS (12 sets, daily range): BP systolic 71–147; BP diastolic 42–65
[2021-10-05] MEDS: IPRATROPIUM/ALBUTEROL 0.5-3(2.5)MG/3ML NEB HHN SCH ×5 (00:35→20:55)
[2021-10-05] MEDS: ACETYLCYSTEINE 100MG/ML 10% VIAL 4ML INH SCH (00:35)
[2021-10-05 06:57] LABS: MEAN CORPUSCULAR HEMOGLOBIN 27.9 pg (28.0-32.0); MEAN CORPUSCULAR VOLUME 88.9 fL (80.0-94.0); MEAN PLATELET VOLUME 7.8 fl (7.4-10.4); PLATELET 353 x1000/uL (130-400); RED BLOOD CELL COUNT 3.55 mill/uL (4.7-6.1); RED CELL DISTRIBUTION WIDTH 17.8 % (11.6-14.6)
[2021-10-05 07:02] LABS: HEMATOCRIT. 31.6 % (42.0-52.0); HEMOGLOBIN. 9.9 g/dL (14.0-18.0)
[2021-10-05 07:04] LABS: CHLORIDE 106 mEq/L (98-107)
[2021-10-05] MEDS: BLOOD SUGAR DIAGNOSTIC STRIP TEST SCH ×3 (08:00→21:50)
[2021-10-05] MEDS: CEFEPIME 1,000 MG in DEXTROSE 5% WATER 50 ML IV SCH (11:44)
[2021-10-05 11:57] LABS: PLATELET ESTIMATE NORMAL
[2021-10-05] MEDS: FLUCONAZOLE 200 MG/100ML BAG 100 ML IV SCH (13:27)
[2021-10-05] MEDS: MEROPENEM 1,000 MG in SODIUM CHLORIDE 0.9% 100 ML IV SCH ×2 (13:51→21:58)
[2021-10-05] MEDS: PANTOPRAZOLE SODIUM 40 MG/VIAL IV SCH (21:58)
[2021-10-05] MEDS: ENOXAPARIN 30MG/0.3ML SYR SUBCUT SCH (21:58)
[2021-10-06] VITALS (16 sets, daily range): BP systolic 86–121; BP diastolic 55–72
[2021-10-06] MEDS: IPRATROPIUM/ALBUTEROL 0.5-3(2.5)MG/3ML NEB HHN SCH ×6 (00:14→20:45)
[2021-10-06] MEDS: ACETYLCYSTEINE 100MG/ML 10% VIAL 4ML INH SCH ×3 (00:15→16:11)
[2021-10-06] MEDS: MEROPENEM 1,000 MG in SODIUM CHLORIDE 0.9% 100 ML IV SCH ×3 (05:37→21:32)
[2021-10-06 06:15] LABS: CHLORIDE 108 mEq/L (98-107)
[2021-10-06] MEDS: BLOOD SUGAR DIAGNOSTIC STRIP TEST SCH ×3 (07:30→21:45)
[2021-10-06 09:12] LABS: BASOPHILS % 0.3 % (0.0-2.0); EOSINOPHILS % 0.2 % (0.0-5.0); HEMATOCRIT. 21.7 % (42.0-52.0); MEAN CORPUSCULAR HEMOGLOBIN 28.4 pg (28.0-32.0); MEAN CORPUSCULAR VOLUME 88.5 fL (80.0-94.0); MEAN PLATELET VOLUME 7.7 fl (7.4-10.4); NEUTROPHILS % 84.5 % (40.0-76.0); PLATELET 311 x1000/uL (130-400); RED BLOOD CELL COUNT 2.45 mill/uL (4.7-6.1); RED CELL DISTRIBUTION WIDTH 17.5 % (11.6-14.6)
[2021-10-06] MEDS: FLUCONAZOLE 200 MG/100ML BAG 100 ML IV SCH (17:22)
[2021-10-06 21:07] LABS: INR 1.1; PROTHROMBIN TIME 11.3 sec (9.6-11.0)
[2021-10-06] MEDS: PANTOPRAZOLE SODIUM 40 MG/VIAL IV SCH (21:32)
[2021-10-07] VITALS (12 sets, daily range): BP systolic 110–149; BP diastolic 70–85
[2021-10-07] MEDS: IPRATROPIUM/ALBUTEROL 0.5-3(2.5)MG/3ML NEB HHN SCH ×6 (00:32→20:53)
[2021-10-07] MEDS: ACETYLCYSTEINE 100MG/ML 10% VIAL 4ML INH SCH ×3 (00:32→16:21)
[2021-10-07] MEDS: MEROPENEM 1,000 MG in SODIUM CHLORIDE 0.9% 100 ML IV SCH ×3 (05:13→21:10)
[2021-10-07 05:40] LABS: BASOPHILS % 0.3 % (0.0-2.0); EOSINOPHILS % 0.7 % (0.0-5.0); HEMATOCRIT. 26.9 % (42.0-52.0); HEMOGLOBIN. 8.8 g/dL (14.0-18.0); LYMPHOCYTES % 14.4 % (20.0-50.0); MEAN CORPUSCULAR HEMOGLOBIN 28.2 pg (28.0-32.0); MEAN CORPUSCULAR VOLUME 86.4 fL (80.0-94.0); MEAN PLATELET VOLUME 8.1 fl (7.4-10.4); MONOCYTES % 3.1 % (2.0-8.0); NEUTROPHILS % 81.5 % (40.0-76.0); PLATELET 316 x1000/uL (130-400); RED BLOOD CELL COUNT 3.11 mill/uL (4.7-6.1); RED CELL DISTRIBUTION WIDTH 16.5 % (11.6-14.6)
[2021-10-07 06:12] LABS: CHLORIDE 107 mEq/L (98-107)
[2021-10-07] MEDS: BLOOD SUGAR DIAGNOSTIC STRIP TEST SCH ×4 (07:30→21:00)
[2021-10-07] MEDS: FLUCONAZOLE 200 MG/100ML BAG 100 ML IV SCH (15:43)
[2021-10-07] MEDS: PANTOPRAZOLE SODIUM 40 MG/VIAL IV SCH (20:50)
[2021-10-08] VITALS (11 sets, daily range): BP systolic 114–131; BP diastolic 67–80
[2021-10-08] MEDS: IPRATROPIUM/ALBUTEROL 0.5-3(2.5)MG/3ML NEB HHN SCH ×5 (00:39→15:32)
[2021-10-08] MEDS: ACETYLCYSTEINE 100MG/ML 10% VIAL 4ML INH SCH ×2 (00:40→08:17)
[2021-10-08] MEDS: MEROPENEM 1,000 MG in SODIUM CHLORIDE 0.9% 100 ML IV SCH ×2 (05:04→13:21)
[2021-10-08] MEDS: BLOOD SUGAR DIAGNOSTIC STRIP TEST SCH ×3 (08:17→17:11)
[2021-10-08] MEDS: FLUCONAZOLE 200 MG/100ML BAG 100 ML IV SCH (13:21)
[2021-10-09] MEDS ORDERED: FLUCONAZOLE 100MG TABLET GT SCH (14:00)
== END 2021-10-08 19:20 | DRG 720 ==
LOC: ER 04:04 → EDBEDREQ 11:16 → EDBEDREQSVC 11:16 → 5EST 11:22 → ENRESERV 11:22
PROVIDERS: ADMIT Hospitalist; ATTEND Hospitalist
PROC: 02HV33Z Insertion of Infusion Device into Superior Vena Cava, Percutaneous Approach (ICD-10-PCS; principal; 2021-10-03)
PROC: 5A1955Z Respiratory Ventilation, Greater than 96 Consecutive Hours (ICD-10-PCS; 2021-10-03)
PROC: B548ZZA Ultrasonography of Superior Vena Cava, Guidance (ICD-10-PCS; 2021-10-03)
DX: A41.52 Sepsis due to Pseudomonas (principal); J96.20 Acute and chronic respiratory failure, unspecified whether with hypoxia or hypercapnia; E43 Unspecified severe protein-calorie malnutrition; J44.0 Chronic obstructive pulmonary disease with (acute) lower respiratory infection; G93.40 Encephalopathy, unspecified; J15.1 Pneumonia due to Pseudomonas; I82.621 Acute embolism and thrombosis of deep veins of right upper extremity; T82.868A Thrombosis due to vascular prosthetic devices, implants and grafts, initial encounter; B37.49 Other urogenital candidiasis; E87.6 Hypokalemia; D63.8 Anemia in other chronic diseases classified elsewhere; R13.10 Dysphagia, unspecified; Z86.718 Personal history of other venous thrombosis and embolism; Z87.01 Personal history of pneumonia (recurrent); Z87.440 Personal history of urinary (tract) infections; Z87.891 Personal history of nicotine dependence; Z93.0 Tracheostomy status; Z93.1 Gastrostomy status; Z20.822 Contact with and (suspected) exposure to COVID-19
CPT/HCPCS: 36415; 36600; 71045; 76937; 80048; 80053; 81003; 82375; 82805; 82962; 83605; 83735; 83880; 84134; 84145; 84484; 85014; 85018; 85025; 85049; 85384; 86850; 86900; 86920; 87070; 87077; 87106; 87186; 87426; 93005; 94002; 94003; 94640; 99291; A6261; C1725; C1892; C9113; J0692; J1170; J1450; J1650; J2185; J3490; J7030; J7050; J7060; J7608; P9016